=== PATIENT | male | born 1940 | race Two or more races ===

== ENCOUNTER 2017-08-22 00:25 | Inpatient (IN) | payer MEDICAID, MEDICARE ==
[~2017-08-22] VITALS: Ht 167.6 cm; Wt 68.0 kg
--- NOTE | 2017-08-22 01:10 | NUR ---
TO BED PT BB AMBULANCE FROM [facility] C/O "POSSIBLE PNA, FEVER X1 DAY." VSS. NAD NOTED. SKIN WARM AND DRY. BREATHING EVEN AND UNLABORED. PLACED ON TELE AND VS MONITORING. COMFORT MEASURES RENDERED.
--- NOTE | 2017-08-22 01:45 | NUR ---
started a saline lock on the lac g18, blood drawn and sent to lab.
[2017-08-22 01:53] LABS: HEMATOCRIT 30 % (39-51); HEMOGLOBIN 10.1 g/dL (13.5-17.5); MEAN CORPUSCULAR HEMOGLOBIN 27 PG (26.0-33.0); MEAN CORPUSCULAR HGB CONC 34 g/dl (31.0-36.0); MEAN CORPUSCULAR VOLUME 79 fL (80-96); PLATELET COUNT (AUTO) 222 /CMM (150-450); RDW COEFFICIENT OF VARIATION 15.1 (11.5-15.0); RED BLOOD CELL COUNT(AUTO) 3.78 MIL/uL (4.5-6.0); WHITE BLOOD COUNT (AUTO) 14.8 K/uL (4.3-11.0)
[2017-08-22 02:03] LABS: EOSINOPHILS % (MANUAL) 1 % (0-4); LYMPHOCYTES % (MANUAL) 11 % (16-48); MONOCYTES % (MANUAL) 7 % (0-11.0); NEUTROPHILS % (MANUAL) 81 (42-76)
[2017-08-22 02:06] LABS: CALCIUM, SERUM 9.3 mg/dL (8.5-10.1); CARBON DIOXIDE 26 mmol/L (21-32); CHLORIDE 110 mmol/L (98-107); CREATININE 1.9 mg/dL (0.6-1.3); GLUCOSE 136 mg/dL (74-106); POTASSIUM 4.1 mmol/L (3.5-5.1); SODIUM SERUM 145 mmol/L (136-145); UREA NITROGEN, BLOOD 58 mg/dL (7-18)
[2017-08-22 02:17] LABS: ALANINE AMINOTRANSFERASE 13 U/L (12-78); ALBUMIN 2.6 g/dL (3.4-5.0); ALKALINE PHOSPHATASE 84 U/L (46-116); ASPARTATE AMINOTRANSFERASE 16 U/L (15-37); B-TYPE NATRIURETIC PEPTIDE 3118 PG/ML (0-125); BILIRUBIN,DIRECT 0.2 mg/dL (0.0-0.2); BILIRUBIN,TOTAL 0.6 mg/dL (0.2-1.0); TOTAL PROTEIN, SERUM 7.9 g/dL (6.4-8.2)
--- NOTE | 2017-08-22 02:24 | NUR ---
XR AT BEDSIDE.
--- NOTE | 2017-08-22 02:50 | NUR ---
started with 500cc ns bolus on the lac g18 for low bp at 92/57, endtime is 0320.
[2017-08-22] MEDS ORDERED: IV NS 0.9% 500 ML BAG IV ONE (03:00)
[2017-08-22 03:28] LABS: APPEARANCE,URINE CLOUDY (CLEAR); BILIRUBIN,URINE 1+ (NEGATIVE); BLOOD, URINE 2+ Ery/uL (NEGATIVE); COLOR,URINE YELLOW (YELLOW); KETONES,URINE TRACE (NEGATIVE); LEUKOCYTE ESTERASE ,URINE 3+ (NEGATIVE); NITRITE, URINE NEGATIVE (NEGATIVE); PROTEIN,URINE 3+ mg/dl (NEGATIVE); UGLUCOSE NEGATIVE (NEGATIVE)
[2017-08-22 03:32] LABS: BACTERIA,URINE Few /HPF (None Seen); WBC,URINE 21-50 /HPF (0-3)
[2017-08-22 03:33] LABS: SQUAMOUS EPITHELIAL CELL,UR Rare /HPF (None Seen)
[2017-08-22] MEDS ORDERED: IV NS 0.9% 1,000 ML IV PRN ×2 (03:46→11:35)
--- NOTE | 2017-08-22 03:53 | NUR ---
tele 115-2
[2017-08-22] MEDS ORDERED: CIPROFLOXACIN IV RTU 400 MG in PREMIX 1 EA IV SCH (04:00)
[2017-08-22] MEDS ORDERED: MAG HYDROX/AL HYDROX/SIMETH 30 ML UDC PO PRN (04:00)
[2017-08-22] MEDS ORDERED: MAGNESIUM HYDROXIDE 30 ML UDC PO PRN (04:00)
[2017-08-22] MEDS ORDERED: ONDANSETRON HCL/PF 4 MG/2 ML VIAL IVP PRN (04:00)
[2017-08-22] MEDS ORDERED: ACETAMINOPHEN 325 MG TABLET PO PRN (04:00)
[2017-08-22] MEDS ORDERED: ZOLPIDEM TARTRATE 5 MG TABLET PO PRN (04:00)
[2017-08-22] MEDS ORDERED: Z GUARD REMEDY 2 OZ OINT TP PRN (04:00)
--- NOTE | 2017-08-22 04:00 | NUR ---
Report given to Krzysztof SOLOMON for admission and mayco.
--- NOTE | 2017-08-22 04:26 | NUR ---
RN NOTES: RECEIVED ER REPORT FROM NOVEMBER RN, STATED SHE WASNT ABLE TO PUT MED RECON SHE IS TIRED FROM EVERYTHING GOING ON IN ER, NOTIFIED INGOT PASSER BYRON.
--- NOTE | 2017-08-22 04:30 | NUR ---
ADMISSION NOTES: RECEIVED REPORT FROM NOVEMBER RN, PT FROM [facility] OF FEVER AND POSSIBLE PNA, BROUGHT TO THE UNIT VIA STRETCHER, PT IS ALERT TO SELF ONLY, CONFUSED, DISORIENTED, ANGRY UNCOOPERATIVE. ON RA RESPIRATION EVEN AND UNLABORED. LEFT AC IV ACCESS PATENT AND FLUSHING WELL ON HL. VS TAKEN AND RECORDED, ORIENTED PT TO UNIT POLICY AND HOURLY ROUNDING. PLACED ON TELE MONITORING, AFLUTTER WITH PAC PVC AND COUPLET HR 95, INITIALLY PER AUTOMATION ANALYST PT IS AFIB WITH PVC PAC AND COUPLET HR 100. SKIN ASSESSMENT PERFORMED, INVENTORY OF BELONGINGS COMPLETED BY DATA COMMUNICATIONS SOFTWARE CONSULTANT, PT HAS ONLY 1 BLUE SHIRT. BED BATH PROVIDED TO THE PT. BLE OFFLOADED. SAFETY PRECAUTIONS FOR FALL INITIATED CALL LIGHT IN REACH, WILL CONTINUE TO MONITOR
--- NOTE | 2017-08-22 04:33 | NUR ---
Transferred patient to tele bed 115-2 via als protocol, no incident noted.
[2017-08-22 04:46] VITALS: BP 91/64
[2017-08-22] MEDS ORDERED: LEVOFLOXACIN 500 MG /D5W 100ML 100 ML IV ONE (04:58)
[2017-08-22] MEDS ORDERED: LEVOFLOXACIN 500 MG /D5W 100ML 500 MG in PREMIX 1 EA IV ONE (05:00)
[2017-08-22] MEDS ORDERED: CIPROFLOXACIN IV RTU 200 ML IV ONE (05:02)
[2017-08-22] MEDS ORDERED: BISA10SU61 RC (05:06)
[2017-08-22] MEDS ORDERED: LORA-259 PO (05:06)
[2017-08-22] MEDS ORDERED: ASPI-1169 PO (05:06)
[2017-08-22] MEDS ORDERED: TRAM50TA2 PO (05:06)
[2017-08-22] MEDS ORDERED: METO-295 PO (05:06)
[2017-08-22] MEDS ORDERED: NA P133E RC (05:06)
[2017-08-22 05:14] VITALS: BP 91/64
--- NOTE | 2017-08-22 06:50 | NUR ---
MOTORCYCLE RACER CLOSING NOTES: PT IN BED, AWAKE, REMAINS ALERT ORIENTED TO SELF ONLY, YELLING AND STATING TO LEAVE HIM ALONE, RESPIRATION EVEN AND UNLABORED, DENIES ANY PAIN OR DISCOMFORT, REMAINS ON A FLUTTER WITH PAC AND PVC HR 101. LEFT AC G 18 PATENT AND FLUSHING WELL, ON HL. VS REMAINS STABLE, NEEDS ATTENDED. BLE OFFLOADED. SAFETY PRECAUTIONS FOR FALL REMAIN ENGAGED CALL LIGHT IN REACH, WILL ENDORSE TO DAY RN FOR SUZAN. Addendum: 08/22/17 at 0652 by AWILDA KERN RN CORRECTION OF ENTRY: LEFT AC G 18 PATENT AND FLUSHING WELL, CURRENTLY INFUSING WITH CIPRO RTU AT 200ML/HR.
--- NOTE | 2017-08-22 07:45 | NUR ---
LUGGAGE ATTENDANT NOTES: RECEIVED PATIENT RESTING IN BED, SLEEPING, AROUSES TO VERBAL AND TACTILE STIMULI, RESPIRATION EVEN AND UNLABORED, NO S/S OF PAIN OR DISCOMFORT NOTED ON TELE, PER MONITOR READING A FLUTTER WITH PAC AND PVC HR 95. IV TO LEFT AC G 18 PATENT AND FLUSHING WELL, ON INFUSING IV FLUIDS. SAFETY PRECAUTIONS RENDERED, CALL LIGHT IN REACH, WILL CONTINUE TO MONITOR.
[2017-08-22 08:00] VITALS: BP 96/69
[2017-08-22] MEDS: HYDROCODONE/APAP 5/325MG 1 EACH TABLET PO PRN ×2 (11:18→17:03)
--- NOTE | 2017-08-22 11:25 | NUR ---
TELE/RN NOTES PATIENT COMPLAINING OF EXCRUCIATING GENERALIZED PAIN. ADMINISTERED NORCO 5-325MG 1 TAB BY MOUTH. WILL MONITOR PATIENT FOR EFFECTIVENESS OF PAIN MEDICATION.
[2017-08-22 12:00] VITALS: BP 108/79
--- NOTE | 2017-08-22 13:00 | NUR ---
TELE/RN NOTES PATIENT SEEN BY PHYSICAL THERAPY, UNABLE TO AMBULATE D/T IMMOBILITY, BEDBOUND. PATIENT CONTRACTED WITH MUSCLE STIFFNESS.
--- NOTE | 2017-08-22 16:05 | NUR ---
TELE/RN NOTES PATIENT APPEARS TO BE ASPIRATING WITH FLUID/FOOD INTAKE. ORDERS OBTAINED FOR SWALLOW EVAL.
--- NOTE | 2017-08-22 18:45 | NUR ---
MS/RN NOTES PATIENT RESTING IN BED COMFORTABLY, NO S/S OF DISTRESS, DISCOMFORT NOTED. ALL DUE MEDICATIONS GIVEN, ALL NEEDS MET AND ATTENDED, PATIENT KEPT CLEAN AND DRY, DIAPER CHANGED X3, REPOSITIONED EVERY 2 HOURS. GENTLE IV FLUIDS INFUSING TO LEFT AC 18G NS AT 100CC/HR INTACT AND PATENT. SAFETY MEASURES RENDERED, VITAL SIGNS WITHIN NORMAL LIMITS. WILL ENDORSE CARE TO PNEUMATIC SYSTEMS OPERATOR NURSE FOR SUZAN
--- NOTE | 2017-08-22 20:00 | NUR ---
FRAME CARVER SPINDLE NOTES PATIENT REFUSED 20:00 VITAL SIGNS. OFFERED 3X. EXPLAINED RISKS AND BENEFITS OF TAKING VITAL SIGNS AND STILL REFUSED. WILL CONTINUE TO MONITOR PATIENT.
--- NOTE | 2017-08-22 23:46 | NUR ---
RN NOTES GIVEN REPORT AND PATIENT TO NEHA OLIVAS
[2017-08-23] VITALS (9 sets, daily range): BP systolic 90–112; BP diastolic 51–68
--- NOTE | 2017-08-23 | NUR ---
CLINICAL TRIALS SPECIALIST NOTES RECEIVED PATIENT FROM NEHA SCHERER IN STABLE CONDITION. NO PAIN OR DISCOMFORT NOTED AT THIS TIME. RESPIRATIONS EVEN AND UNLABORED.NO SOB NOTED. IV ACCESS PATENT AND INTACT, NO REDNESS OR INFILTRATION NOTED. BED IN LOW AND LOCKED POSITION, SIDE RAILS X2. CALL LIGHT WITHIN EASY REACH. WILL CONTINUE TO MONITOR.
[2017-08-23] MEDS ORDERED: LEVOFLOXACIN 250 MG /D5W 50 ML 250 MG in PREMIX 1 EA IV SCH (05:00)
--- NOTE | 2017-08-23 07:00 | NUR ---
RN NOTES PATIENT REFUSED BLOOD DRAW AND DIAPER CHANGE
--- NOTE | 2017-08-23 07:30 | NUR ---
RN CLOSING NOTES PATIENT IS SLEEPING IN BED, EASY TO AROUSE, NO PAIN OR DISCOMFORT NOTED AT THIS TIME. RESPIRATIONS EVEN AND UNLABORED.NO SOB NOTED. IV ACCESS PATENT AND INTACT, NO REDNESS OR INFILTRATION NOTED. ALL NEEDS ARE MET AND MEDICATIONS GIVEN PER MD ORDER. BED IN LOW AND LOCKED POSITION, SIDE RAILS X2. CALL LIGHT WITHIN EASY REACH. WILL ENDORSE TO RN DAY SHIFT FOR SUZAN.
--- NOTE | 2017-08-23 07:50 | NUR ---
TELE/RN OPENING NOTE PATIENT IN BED IN STABLE CONDITION. A/O X 1-2. NO SIGNS OF ACUTE DISTRESS. NO COMPLAIN OF PAIN OR DISCOMFORT. ON TELE MONITOR WITH A-FLUTTER WITH PVC. ALL NEEDS ATTENDED TO. CALL LIGHT WITHIN REACH. WILL CONTINUE TO MONITOR TO ENSURE SAFETY.
[2017-08-23] MEDS: ASPIRIN 81 MG TAB.CHEW PO SCH (09:00)
--- NOTE | 2017-08-23 10:06 | NUR ---
TELE/RN REFUSAL OF MEDS/BREAKFAST PATIENT REFUSED MORNING MEDS AND BREAKFAST. OFFERED X 3 WITH RISK AND BENEFITS EXPLAINED STILL CONTINUE TO REFUSE. PER PATIENT VERBALIZED, "LEAVE ME ALONE, GET OUT OF MY FUCKING ROOM." CALL LIGHT WITHIN REACH. WILL CONTINUE TO MONITOR FOR FURTHER CHANGES.
--- NOTE | 2017-08-23 10:44 | NUR ---
WOUND CARE CONSULT: PT VERY AGITATED AND REFUSING SKIN ASSESSMENT. ALL SKIN PROTECTION MEASURES IN PLACE AND DISCUSSED WITH NURSING STAFF. WILL SEE PT PT CONDITION PERMITS. CURRENT ESTELLA SCORE IS 13.
[2017-08-23] MEDS: IV NS 0.9% 1,000 ML IV SCH (14:15)
[2017-08-23] MEDS ORDERED: LORAZEPAM INJ 2 MG/ML VIAL IV PRN (14:30)
[2017-08-23] MEDS ORDERED: TRAMADOL HCL 50 MG TABLET PO PRN (14:30)
[2017-08-23] MEDS: CEFTRIAXONE 1 G in IV D5W 50 ML IV SCH (15:22)
--- NOTE | 2017-08-23 18:09 | NUR ---
MS/RN CLOSING NOTE PATIENT IN BED IN STABLE CONDITION. A/O X 1-2, NOTED WITH EPISODES OF CONFUSION AND FORGETFULNESS. ALL NEEDS ATTENDED TO. CALL LIGHT WITHIN REACH. WILL ENDORSE TO NEXT SHIFT FOR CONTINUITY OF CARE.
--- NOTE | 2017-08-23 19:15 | NUR ---
TELE/RN NOTES RECEIVED PT. LYING IN BED. AWAKE, ALERT AND ORIENTED X1. BREATHING EVEN AND UNLABORED ON ROOM AIR. NO SOB, RESPIRATORY DISTRESS OR COMPLAINTS OF PAIN NOTED AT THIS TIME. PT. WITH LEFT AC 18 GAUGE PERIPHERAL IV PRESENT, PATENT AND INTACT ADMINISTERING TO PT. NS @ 100 ML/HR. BED LOCKED AND IN LOWEST POSITION, SIDE RAILS UP X3, BED ALARM ON, CALL LIGHT WITHIN REACH, WILL CONTINUE TO MONITOR.
[2017-08-24] VITALS: BP 95/52
[2017-08-24] MEDS: IV NS 0.9% 1,000 ML IV SCH ×2 (00:30→13:41)
[2017-08-24 04:00] VITALS: BP 94/67
--- NOTE | 2017-08-24 06:38 | NUR ---
TELE/RN NOTES PT. IS LYING IN BED RESTING. BREATHING EVEN AND UNLABORED ON ROOM AIR. NO SOB, RESPIRATORY DISTRESS OR COMPLAINTS OF PAIN NOTED AT THIS TIME. PT. WITH LEFT AC 18 GAUGE PERIPHERAL IV PRESENT, PATENT AND INTACT ADMINISTERING TO PT. NS @ 100 ML/HR. ALL PT. NEEDS MET. PT. HAS BEEN REFUSING TO BE CLEANED OR TOUCHED STATING" LEAVE ME ALONE I DONT WANT TO BE TOUCHED, GO AWAY". BED LOCKED AND IN LOWEST POSITION, SIDE RAILS UP X3, BED ALARM ON, CALL LIGHT WITHIN REACH, WILL ENDORSE TO DAYSHIFT NURSE FOR CONTINUITY OF CARE.
[2017-08-24 08:00] VITALS: BP 95/67
[2017-08-24] MEDS: ASPIRIN 81 MG TAB.CHEW PO SCH (09:08)
[2017-08-24] MEDS: LORAZEPAM 1 MG TABLET PO PRN (09:42)
[2017-08-24] MEDS: HYDROCODONE/APAP 5/325MG 1 EACH TABLET PO PRN ×2 (10:56→17:18)
[2017-08-24 12:00] VITALS: BP_SYST 95; BP_DIAS 57; BP_DIAS 58
[2017-08-24 16:00] VITALS: BP_SYST 99; BP_DIAS 50; BP_DIAS 59
[2017-08-24] MEDS: CEFTRIAXONE 1 G in IV D5W 50 ML IV SCH (17:13)
--- NOTE | 2017-08-24 18:30 | NUR ---
YELLING OUT CONTINUALLY REASSURED ARCENIO. RN IN TO RM VERY FREQ.IV INFUSING CONT.MED X1 WITH ATIVAN AND X2 WITH NORCO.
--- NOTE | 2017-08-24 19:49 | NUR ---
RN NOTE LAB REPORTED THAT PT REFUSED HIS BLOOD DRAWS TODAY SEVERAL TIMES, A RESULT LABS WERE CANCELED, CRISELDA MEDLEY WAS NOTIFIED.
[2017-08-24 20:00] VITALS: BP 101/62
--- NOTE | 2017-08-24 20:00 | NUR ---
RN INITIAL NOTES PT. IS LYING IN BED RESTING. BREATHING EVEN AND UNLABORED ON ROOM AIR. NO SOB, RESPIRATORY DISTRESS OR COMPLAINTS OF PAIN NOTED AT THIS TIME. PT. WITH LEFT AC 18 GAUGE PERIPHERAL IV PRESENT, PATENT AND INTACT . NS @ 50 ML/HR. BED LOCKED AND IN LOWEST POSITION, SIDE RAILS UP X3, BED ALARM ON, CALL LIGHT WITHIN REACH, WILL CONTINUE TO MONITOR.
[2017-08-25] MEDS: HYDROCODONE/APAP 5/325MG 1 EACH TABLET PO PRN (00:55)
[2017-08-25] MEDS: LORAZEPAM 1 MG TABLET PO PRN ×2 (00:56→12:07)
[2017-08-25 04:00] VITALS: BP_SYST 101; BP_SYST 123; BP_DIAS 62; BP_DIAS 76
[2017-08-25 05:00] VITALS: BP 101/62
[2017-08-25] MEDS: IV NS 0.9% 1,000 ML IV SCH (05:58)
--- NOTE | 2017-08-25 06:00 | NUR ---
RN CLOSING NOTE NO CHANGES IN PT CONDITION OVER SHIFT, PATIENT IN BED IN STABLE CONDITION. A/O X 1-2, NOTED WITH EPISODES OF CONFUSION AND FORGETFULNESS AND SHOUTING. ALL NEEDS ATTENDED TO. CALL LIGHT WITHIN REACH. BED IN LOW LOCKED POSITION . WILL ENDORSE TO NEXT SHIFT FOR CONTINUITY OF CARE.
[2017-08-25 07:11] LABS: BASOPHILS % (AUTO) 0.1 % (0.0-2.0); EOSINOPHILS # (AUTO) 0.1 /CMM (0.0-0.7); EOSINOPHILS % (AUTO) 1.9 % (0.0-6.0); HEMATOCRIT 25 % (39-51); HEMOGLOBIN 8.6 g/dL (13.5-17.5); LYMPHOCYTES % (AUTO) 25.5 % (20.0-44.0); MEAN CORPUSCULAR HEMOGLOBIN 27 PG (26.0-33.0); MEAN CORPUSCULAR HGB CONC 34 g/dl (31.0-36.0); MEAN CORPUSCULAR VOLUME 80 fL (80-96); MONOCYTES # (AUTO) 0.8 /CMM (0.1-1.30); MONOCYTES % (AUTO) 10.6 % (2.0-12.0); NEUTROPHILS # (AUTO) 4.8 /CMM (1.8-8.9); NEUTROPHILS % (AUTO) 61.9 % (43.0-81.0); PLATELET COUNT (AUTO) 278 /CMM (150-450); RDW COEFFICIENT OF VARIATION 15.7 (11.5-15.0); RED BLOOD CELL COUNT(AUTO) 3.18 MIL/uL (4.5-6.0); WHITE BLOOD COUNT (AUTO) 7.8 K/uL (4.3-11.0)
[2017-08-25 07:27] LABS: ALANINE AMINOTRANSFERASE 10 U/L (12-78); ALBUMIN 2.3 g/dL (3.4-5.0); ALKALINE PHOSPHATASE 68 U/L (46-116); ASPARTATE AMINOTRANSFERASE 16 U/L (15-37); BILIRUBIN,TOTAL 0.3 mg/dL (0.2-1.0); CALCIUM, SERUM 8.6 mg/dL (8.5-10.1); CARBON DIOXIDE 24 mmol/L (21-32); CHLORIDE 111 mmol/L (98-107); GLUCOSE 90 mg/dL (74-106); MAGNESIUM 1.9 mg/dL (1.8-2.4); PHOSPHORUS 2.9 mg/dL (2.5-4.9); POTASSIUM 3.8 mmol/L (3.5-5.1); SODIUM SERUM 143 mmol/L (136-145); TOTAL PROTEIN, SERUM 6.8 g/dL (6.4-8.2); UREA NITROGEN, BLOOD 25 mg/dL (7-18)
[2017-08-25 08:00] VITALS: BP 108/73
[2017-08-25] MEDS: ASPIRIN 81 MG TAB.CHEW PO SCH (09:11)
--- NOTE | 2017-08-25 15:01 | NUR ---
DISCHARGE TRADE SHOW COORDINATOR NOTE, PATIENT STABLE AO X1-2, VS: B/P 120/74, O2 SAT 96% RA, T 98.3 RR19 HR 115. HR INCREASED DUE TO WOUND CARE AND BED BATH. RE-CHECKED HR, IT WAS 110. ENDORSED TO TRANSPORT EMTDARRYL. NOTIFIED TRANSPORT PATIENT WAS SCHEDULED FOR [facility] AT 2200 DUE TO PATIENT CONFUSION AND ANXIETY AND PATIENT TO CONTINUE TX. PATIENT TRANSPORTE TO [facility]: [phone] REPORT TO JOSE EDUARDO.
[2017-08-25] MEDS ORDERED: QUETIAPINE FUMARATE 25 MG TABLET PO SCH (22:00)
== END 2017-08-25 14:50 | DRG 463 ==
LOC: ER 00:27 → TELE1 04:25 → MEDSG1 08-24 12:14
PROVIDERS: ADMIT Internal Medicine; ATTEND Internal Medicine
DX: N39.0 Urinary tract infection, site not specified (principal); N17.0 Acute kidney failure with tubular necrosis; G93.41 Metabolic encephalopathy; E44.0 Moderate protein-calorie malnutrition; B96.4 Proteus (mirabilis) (morganii) as the cause of diseases classified elsewhere; I48.91 Unspecified atrial fibrillation; F03.90 Unspecified dementia, unspecified severity, without behavioral disturbance, psychotic disturbance, mood disturbance, and anxiety; E86.0 Dehydration; I12.9 Hypertensive chronic kidney disease with stage 1 through stage 4 chronic kidney disease, or unspecified chronic kidney disease; D63.8 Anemia in other chronic diseases classified elsewhere; K21.9 Gastro-esophageal reflux disease without esophagitis; N18.9 Chronic kidney disease, unspecified; Z68.24 Body mass index [BMI] 24.0-24.9, adult; L98.8 Other specified disorders of the skin and subcutaneous tissue; L90.5 Scar conditions and fibrosis of skin; F29 Unspecified psychosis not due to a substance or known physiological condition
CPT/HCPCS: 36415; 71045-TC; 80048-TC; 80053-TC; 80076-TC; 81000-TC; 83605-TC; 83735-TC; 83880; 84100-TC; 84484-TC; 85025-TC; 87040-TC; 87081-TC; 87086-TC; 87186-TC; 87400; 92611-TC; A4216; A4606; A6402; J0696; J0744; J1956; J2060; J7030; J7040; J7060; Z7610

== ENCOUNTER 2019-07-21 12:12 | Inpatient (IN) | payer MEDICARE, MEDICAID ==
[~2019-07-21] VITALS: Ht 167.6 cm; Wt 80.4 kg
[2019-07-21] VITALS (14 sets, daily range): BP systolic 92–147; BP diastolic 67–109
[~2019-07-21 12:12] MED LIST: ASPI-1169 PO; BISA10SU61 RC; LORA-259 PO; METO-295 PO; NA P133E RC; TRAM50TA2 PO
[2019-07-21] MEDS ORDERED: FUROSEMIDE 20 MG/2 ML VIAL ONE (12:21)
[2019-07-21] MEDS ORDERED: NALOXONE PREFILLED SYRINGE 2 MG/2 ML SYRINGE ONE (12:25)
--- NOTE | 2019-07-21 12:25 | NUR ---
ICU 250
[2019-07-21] MEDS ORDERED: methylPREDNISolone SOD SUCC 125 MG/2ML VIAL IV ONE (12:30)
[2019-07-21] MEDS ORDERED: IPRATROPIUM NEB FS 0.5 MG/2.5 ML AMPUL.NEB NEB ONE (12:30)
[2019-07-21] MEDS ORDERED: ALBUTEROL FS 2.5 MG/3 ML VIAL.NEB NEB ONE (12:30)
[2019-07-21] MEDS ORDERED: NALOXONE HCL 0.4 MG/ML AMPUL IV ONE (12:30)
[2019-07-21] MEDS ORDERED: FUROSEMIDE 40 MG/4 ML VIAL IV ONE (12:30)
--- NOTE | 2019-07-21 12:30 | NUR ---
RT here to set up BiPap as ordered. Medicated
--- NOTE | 2019-07-21 12:30 | NUR ---
RT here suctioned copius amouts of reddish mucus
[2019-07-21] MEDS ORDERED: methylPREDNISolone SOD SUCC 125 MG/2ML VIAL ONE (12:37)
[2019-07-21 12:41] LABS: BASOPHILS % (AUTO) 0.1 % (0.0-2.0); HEMATOCRIT 37 % (39-51); HEMOGLOBIN 12.1 g/dL (13.5-17.5); LYMPHOCYTES # (AUTO) 0.9 /CMM (0.8-4.8); LYMPHOCYTES % (AUTO) 8.5 % (20.0-44.0); MEAN CORPUSCULAR HGB CONC 33 g/dl (31.0-36.0); MEAN CORPUSCULAR VOLUME 73 fL (80-96); MONOCYTES # (AUTO) 1.2 /CMM (0.1-1.30); MONOCYTES % (AUTO) 11.3 % (2.0-12.0); NEUTROPHILS # (AUTO) 8.4 /CMM (1.8-8.9); NEUTROPHILS % (AUTO) 80.1 % (43.0-81.0); PLATELET COUNT (AUTO) 163 /CMM (150-450); RED BLOOD CELL COUNT(AUTO) 5.09 MIL/uL (4.5-6.0); WHITE BLOOD COUNT (AUTO) 10.5 K/uL (4.3-11.0)
--- NOTE | 2019-07-21 12:43 | NUR ---
RT NOTE PT PLACED ON BIPAP PER MD JOIE BROOKS. SETTINGS FOLLOW 30/11 BUR 12 100%. ALARMS SET PER PROTOCOL AND AUDIBLE. BIPAP PLUGGED IN TO RED OUTLET. Addendum: 07/21/19 at 1244 by JANI DUFFY RT Amended: Links added.
[2019-07-21 12:44] LABS: CALCIUM, SERUM 9.8 mg/dL (8.5-10.1); CREATININE 0.6 mg/dL (0.6-1.3); POTASSIUM 4.8 mmol/L (3.5-5.1)
[2019-07-21] MEDS ORDERED: IPRATROPIUM NEB FS 0.5 MG/2.5 ML AMPUL.NEB ONE (12:46)
[2019-07-21] MEDS ORDERED: ALBUTEROL FS 2.5 MG/3 ML VIAL.NEB ONE (12:46)
[2019-07-21 13:01] LABS: ALBUMIN 3.5 g/dL (3.4-5.0); BILIRUBIN,DIRECT 0.3 mg/dL (0.0-0.2); BILIRUBIN,TOTAL 0.8 mg/dL (0.2-1.0); TOTAL PROTEIN, SERUM 8.1 g/dL (6.4-8.2)
[2019-07-21 13:30] LABS: ABG BASE EXCESS -0.1 mmol/L; ABG OXYGEN SATURATION 93.3 % (92.0-98.5); ABG PH 7.292 (7.350-7.450); ABG PO2 79.6 mmHg (75.0-100.0); AaDO2 284.4 mmHg; COHb 0.9 % (0.5-1.5); MetHb 0.4 % (0.0-1.5); O2Hb 92.1 % (94.0-97.0); SITE, ABG Right Radial; VENT MODE, BG ST 15/5 60%
[2019-07-21] MEDS ORDERED: ENOXAPARIN SODIUM 60 MG/0.6 ML DISP.SYRIN SQ ONE ×2 (13:30→13:55)
--- NOTE | 2019-07-21 14:00 | NUR ---
Respirations even/unlabored. Tolerating Bipap. Await ICU admit
[2019-07-21 14:04] LABS: LYMPHOCYTES % (MANUAL) 7 % (16-48); MONOCYTES % (MANUAL) 7 % (0-11.0); NEUTROPHILS % (MANUAL) 86 (42-76)
--- NOTE | 2019-07-21 14:28 | NUR ---
REPORT GIVEN TO VENUS SOLOMON, CONTINUE PLAN OF CARE.
--- NOTE | 2019-07-21 14:30 | NUR ---
SCENE AND LIGHTING DESIGN LECTURER NOTES RECEIVED PATIENT AOX1 LETHARGIC ABLE TO FOLLOW COMMANDS, ON BIPAP 30/11 RATE 12 FIO2 OF 60% SPO2 OF 90-95% , AFIB 85 ON BEDSIDE MONITOR , FC DRAINING VIA GRAVITY WITH JASON COLORED URINE , SKIN ASSESSMENT DONE NOTED WITH BILATERAL BUTTOCKS SCAR , IV OF L WRIST # 18 PATENT AND INTACT SL , ALL NEEDS ATTENDED , BED ON LOW AND LOCKED POSITION , SIDE RAILS X2, CALL LIGHT WITHIN REACH , HOB @ 45 , AWAITING FOR ADMISSION ORDERS
[2019-07-21] MEDS ORDERED: BENZ2AMP3 PO (14:47)
[2019-07-21] MEDS ORDERED: HYDR-4384 PO (14:47)
[2019-07-21] MEDS ORDERED: GABA-532 PO (14:47)
[2019-07-21] MEDS ORDERED: AMIN887L PO (14:47)
[2019-07-21] MEDS ORDERED: ARIP5TAB10 PO (14:47)
[2019-07-21] MEDS ORDERED: ZOLP5TAB2 PO (14:47)
[2019-07-21] MEDS ORDERED: ASPI-605 PO (14:47)
[2019-07-21] MEDS ORDERED: DIVA500T2 PO (14:47)
[2019-07-21] MEDS ORDERED: LATA2.5D2 OP (14:47)
[2019-07-21] MEDS ORDERED: BACL10TA PO (14:47)
[2019-07-21] MEDS ORDERED: SENN-175 PO (14:47)
[2019-07-21] MEDS ORDERED: MAGN400O6 PO (14:47)
[2019-07-21] MEDS ORDERED: MULT-439 PO (14:47)
[2019-07-21] MEDS ORDERED: ACET650T10 PO (14:47)
[2019-07-21] MEDS ORDERED: BISACODYL SUPP (10 MG) 10 MG/SUPP.RECT SUPP.RECT RC PRN (15:00)
[2019-07-21] MEDS ORDERED: MAG HYDROX/AL HYDROX/SIMETH 30 ML UDC PO PRN (15:00)
[2019-07-21] MEDS ORDERED: ACETAMINOPHEN 325 MG TABLET PO PRN (15:00)
[2019-07-21] MEDS ORDERED: ONDANSETRON HCL/PF 4 MG/2 ML VIAL IVP PRN (15:00)
[2019-07-21] MEDS ORDERED: TRAMADOL HCL 50 MG TABLET PO PRN (15:00)
[2019-07-21] MEDS ORDERED: MAGNESIUM HYDROXIDE 30 ML UDC PO PRN (15:00)
[2019-07-21] MEDS ORDERED: Z GUARD REMEDY 2 OZ OINT TP PRN (15:00)
[2019-07-21] MEDS ORDERED: FEE PK DOSING 1 MIN EA MC ONE (15:28)
[2019-07-21] MEDS: ALBUTEROL FS 2.5 MG/0.5 ML VIAL.NEB NEB SCH ×2 (15:55→19:44)
[2019-07-21] MEDS: IPRATROPIUM NEB FS 0.5 MG/2.5 ML AMPUL.NEB NEB SCH ×2 (15:55→19:44)
[2019-07-21] MEDS ORDERED: PIPERACILLIN /TAZOBACTAM 3.375 G in IV D5W 50 ML IV ONE (16:00)
[2019-07-21] MEDS: GABAPENTIN 100 MG CAPSULE PO SCH (16:20)
[2019-07-21] MEDS: BACLOFEN (10 MG) 10 MG TABLET PO SCH (16:20)
[2019-07-21] MEDS: PROSOURCE / PROSTAT (PYXIS) 30 ML UDC PO SCH (16:20)
--- NOTE | 2019-07-21 16:45 | NUR ---
BLOCK SEALER NOTES NOTIFIED DR HARGROVE REGARDING PT STATUS , ON BIPAP 30/11 RATE 12 FIO2 OF 60% , SPO2 OF 87-90% , PT LETHARGIC ABLE TO FOLLOW COMMANDS , ASKED IF HE WANTS TO DO A REPEAT ABG , PER MD DO ABG @ 1700 , ORDERS CARRIED OUT
[2019-07-21] MEDS: methylPREDNISolone SOD SUCC 40 MG/ML VIAL IV SCH (17:00)
[2019-07-21] MEDS ORDERED: FUROSEMIDE 40 MG/4 ML VIAL IV SCH (17:00)
[2019-07-21 17:40] LABS: ABG BASE EXCESS 2.3 mmol/L; ABG OXYGEN SATURATION 94.7 % (92.0-98.5); ABG PCO2 56.5 mmHg (35.0-45.0); ABG PH 7.333 (7.350-7.450); AaDO2 285.7 mmHg; COHb 0.7 % (0.5-1.5); MetHb 0.6 % (0.0-1.5); O2Hb 93.5 % (94.0-97.0); SITE, ABG Right Radial; VENT MODE, BG ST 15/5 60%
--- NOTE | 2019-07-21 18:00 | NUR ---
SAWMILL OR TIMBER YARD WORKER NOTES NOTIFIED DR HARGROVE REGARDING ABG RESULT , PER MD INCREASE IPAP TO 18 , RT NOTIFIED
[2019-07-21] MEDS: VANCOMYCIN 1 GM in IV D5W 250ml IV SCH (18:02)
[2019-07-21 18:45] LABS: APPEARANCE,URINE CLEAR (CLEAR); BILIRUBIN,URINE NEGATIVE (NEGATIVE); BLOOD, URINE LARGE Ery/uL (NEGATIVE); COLOR,URINE YELLOW (YELLOW); KETONES,URINE NEGATIVE (NEGATIVE); LEUKOCYTE ESTERASE ,URINE NEGATIVE (NEGATIVE); NITRITE, URINE NEGATIVE (NEGATIVE); PH,URINE 5.5 (5.0-8.0); PROTEIN,URINE NEGATIVE (NEGATIVE); UGLUCOSE NEGATIVE (NEGATIVE); UROBILINOGEN,URINE 0.2 EU/dL (0.2)
--- NOTE | 2019-07-21 19:15 | NUR ---
RN OPENING NOTES RECEIVED PATIENT IN BED AWAKE, A/OX1, LETHARGIC, HOWEVER ABLE TO FOLLOW COMMANDS. ON BIPAP (FIO2 60%), TOLERATING WELL, SATURATING 96% AT THE MOMENT. DENIES ANY PAIN. NO SOB OR RESPIRATORY DISTRESS NOTED. ON BEDSIDE MONITOR AFIB WITH HR 90'S. MATA CATH DRAINING VIA GRAVITY WITH YELLOW COLORED URINE NOTED. IV SITES LEFT WRIST 18G AND RIGHT FA 20G, BOTH FLUSHING AND PATENT, S/L. SAFETY MEASURES IN PLACE; BED ON LOW AND LOCKED POSITION, SIDE RAILS X2, CALL LIGHT WITHIN REACH, HOB ELEVATED. WILL CONT TO MONITOR PT CLOSELY.
[2019-07-21 19:39] LABS: RBC,URINE 81-100 /HPF (0-2)
[2019-07-21 19:40] LABS: BACTERIA,URINE 1+ /HPF (None Seen); SQUAMOUS EPITHELIAL CELL,UR Few /HPF (None Seen); WBC,URINE 0-2 /HPF (0-3)
[2019-07-21] MEDS: ZOLPIDEM TARTRATE 5 MG TABLET PO SCH (21:41)
[2019-07-21] MEDS: SENNOSIDES 8.6 MG TABLET PO SCH (22:00)
[2019-07-21] MEDS: LATANOPROST EYE DROP 0.005% 2.5 ML BOTTLE EACHEYE SCH (22:32)
[2019-07-21] MEDS: PIPERACILLIN /TAZOBACTAM 3.375 G in IV D5W 100 ML IV SCH (22:33)
[2019-07-22] VITALS (48 sets, daily range): BP systolic 91–143; BP diastolic 45–109
[2019-07-22] MEDS ORDERED: ENOXAPARIN SODIUM 60 MG/0.6 ML DISP.SYRIN SQ SCH (02:00)
[2019-07-22] MEDS: VANCOMYCIN 1 GM in IV D5W 250ml IV SCH ×2 (05:08→17:08)
[2019-07-22 05:26] LABS: HEMATOCRIT 39 % (39-51); HEMOGLOBIN 12.5 g/dL (13.5-17.5); LYMPHOCYTES # (AUTO) 0.9 /CMM (0.8-4.8); MEAN CORPUSCULAR HGB CONC 32 g/dl (31.0-36.0); MEAN CORPUSCULAR VOLUME 73 fL (80-96); MONOCYTES # (AUTO) 0.3 /CMM (0.1-1.30); PLATELET COUNT (AUTO) 142 /CMM (150-450); RED BLOOD CELL COUNT(AUTO) 5.29 MIL/uL (4.5-6.0); WHITE BLOOD COUNT (AUTO) 9.2 K/uL (4.3-11.0)
[2019-07-22 05:34] LABS: THYROID STIMULATING HORMONE 2.328 uIU/mL (0.358-3.74)
[2019-07-22 05:35] LABS: CALCIUM, SERUM 9.7 mg/dL (8.5-10.1); CREATININE 0.7 mg/dL (0.6-1.3); MAGNESIUM 1.9 mg/dL (1.8-2.4); PHOSPHORUS 3.1 mg/dL (2.5-4.9); POTASSIUM 4.3 mmol/L (3.5-5.1)
[2019-07-22 06:12] LABS: LYMPHOCYTES % (MANUAL) 11 % (16-48); MONOCYTES % (MANUAL) 3 % (0-11.0); NEUTROPHILS % (MANUAL) 86 (42-76)
[2019-07-22] MEDS: PIPERACILLIN /TAZOBACTAM 3.375 G in IV D5W 100 ML IV SCH ×3 (06:33→22:32)
--- NOTE | 2019-07-22 07:21 | NUR ---
RN CLOSING NOTES PATIENT SLEEPING IN BED, BUT EASY TO AROUSE VIA SPEECH, A/OX1, ABLE TO FOLLOW COMMANDS. ON BIPAP (FIO2 60%), TOLERATING WELL, SATURATING 98% AT THE MOMENT. DENIES ANY PAIN. NO SOB OR RESPIRATORY DISTRESS NOTED. ON BEDSIDE MONITOR AFIB WITH HR 90'S. MATA CATH DRAINING VIA GRAVITY WITH YELLOW COLORED URINE NOTED. IV SITES LEFT WRIST 18G AND RIGHT FA 20G, BOTH FLUSHING AND PATENT, IV ANTIBIOTIC RUNNING ORDERED. SAFETY MEASURES IN PLACE; BED ON LOW AND LOCKED POSITION, SIDE RAILS X2, CALL LIGHT WITHIN REACH, HOB ELEVATED. ENDORSED TO AM RN FOR SUZAN.
--- NOTE | 2019-07-22 07:30 | NUR ---
RN NOTES RECEIVED PATIENT IN BED ASLEEP BUT EASILY AWAKEN BY VERBAL STIMULI,ABLE TO TRACK AND ABLE TO ANSWER YES/NO QUESTION BY NODDING THE HEAD. NOT ON ANY DISTRESS AT THIS TIME. ON BIPAP (FIO2 60%), TOLERATING WELL, SATURATING 98% AT THE MOMENT. DENIES ANY PAIN. PATIENT UNABLE TO MOVE ANY OF THE LIMB. CONTROLLED AFIB ON THE MONITOR WITH HR ON THE 70s AT THIS TIME. IV SITES LEFT WRIST 18G AND RIGHT FA 20G, BOTH IN PLACE AND PATENT ON FLUSHING, BOTH SALINE LOCKED. MATA CATH IN PLACE AND DRAINING VIA GRAVITY TO YELLOW COLORED URINE NOTED. HOB KEPT ELEVATED. SAFETY MEASURES OBSERVED AND MAINTAINED. BED ON LOW AND LOCKED POSITION, SIDE RAILS X2, CALL LIGHT WITHIN REACH. WILL CONTINUE TO MONITOR PATIENT CLOSELY
[2019-07-22] MEDS: ALBUTEROL FS 2.5 MG/0.5 ML VIAL.NEB NEB SCH ×4 (07:52→20:02)
[2019-07-22] MEDS: IPRATROPIUM NEB FS 0.5 MG/2.5 ML AMPUL.NEB NEB SCH ×4 (07:52→20:02)
[2019-07-22] MEDS: methylPREDNISolone SOD SUCC 40 MG/ML VIAL IV SCH ×3 (08:29→17:08)
[2019-07-22] MEDS: ARIPIPRAZOLE 5 MG TABLET PO SCH (08:30)
[2019-07-22] MEDS: CARVEDILOL 3.125 MG TABLET PO SCH ×2 (08:32→20:32)
[2019-07-22] MEDS: BENZTROPINE MESYLATE (1 MG) 1 MG TABLET PO SCH (08:32)
[2019-07-22] MEDS: ASPIRIN EC 81 MG TABLET.DR PO SCH (08:32)
[2019-07-22] MEDS: MULTIVIT W/MINERALS 1 TAB TABLET PO SCH (08:33)
[2019-07-22] MEDS: PROSOURCE / PROSTAT (PYXIS) 30 ML UDC PO SCH ×2 (08:33→16:50)
[2019-07-22] MEDS: BACLOFEN (10 MG) 10 MG TABLET PO SCH ×3 (08:33→16:49)
[2019-07-22] MEDS: DIVALPROEX SODIUM 125 MG TABLET.DR PO SCH (08:33)
[2019-07-22] MEDS: GABAPENTIN 100 MG CAPSULE PO SCH ×2 (08:33→16:49)
--- NOTE | 2019-07-22 08:45 | NUR ---
RN NOTES SEEN AND EXAMINED BY DR. CLOUD WITH ORDERS FOR ABG. RESULTS SHOWN AND PER MD INCREASE IPAP FROM 18 TO 22. ORDER NOTED AND CARRIED OUT
[2019-07-22 09:32] LABS: ABG BASE EXCESS 5.7 mmol/L; ABG OXYGEN SATURATION 97.8 % (92.0-98.5); ABG PCO2 60.5 mmHg (35.0-45.0); ABG PH 7.352 (7.350-7.450); AaDO2 231.3 mmHg; COHb 0.2 % (0.5-1.5); MetHb 0.5 % (0.0-1.5); O2Hb 97.1 % (94.0-97.0); SITE, ABG Right Radial; VENT MODE, BG Bipap 18/5 60% RR12
[2019-07-22] MEDS: SOD FERRIC GLUC 125 MG in IV NS 0.9% 100 ML IV SCH (13:28)
--- NOTE | 2019-07-22 15:05 | NUR ---
RT NOTE Pt rec'd on bipap on settings as charted. Pt awake and alert. Mepilex in place and no redness or scarring from bipap mask. Pt shows no signs of resp distress or sob. Alarms are set and audible. Bipap Plugged into red outlet. Will continue to monitor closely Addendum: 07/22/19 at 1507 by CONCETTA PETERSON RT Amended: Links added.
[2019-07-22] MEDS: RIVAROXABAN 10 MG TABLET PO SCH (16:50)
--- NOTE | 2019-07-22 19:10 | NUR ---
RN NOTES ENDORSED FOR CONTINUITY OF CARE. NOT ON ANY FORM OF DISTRESS. TOLERATING CURRENT BIPAP SETTINGS. NO INDICATION OF PAIN NOTED AT THIS TIME. HOB ELEVATED. SAFETY MEASURES IN PLACE. CALL LIGHT WITHIN REACH
--- NOTE | 2019-07-22 19:26 | NUR ---
RN OPENING NOTES RECEIVED PATIENT IN BED AWAKE, A/OX1, ABLE TO FOLLOW COMMANDS. ON BIPAP (FIO2 40%), TOLERATING WELL, SATURATING 98% AT THE MOMENT. DENIES ANY PAIN. NO SOB OR RESPIRATORY DISTRESS NOTED. ON BEDSIDE MONITOR AFIB WITH HR 100'S. MATA CATH DRAINING VIA GRAVITY WITH PINK TINGED COLORED URINE NOTED. IV SITES LEFT WRIST 18G AND RIGHT FA 20G, BOTH FLUSHING AND PATENT, IV ANTIBIOTICS RUNNING ORDERED, NO INFILTRATION NOTED. SAFETY MEASURES IN PLACE; BED ON LOW AND LOCKED POSITION, SIDE RAILS UP X2, CALL LIGHT WITHIN REACH, HOB ELEVATED. WILL CONT TO MONITOR PT CLOSELY.
--- NOTE | 2019-07-22 20:30 | NUR ---
RN NOTES PER AM RN, PATIENT HAD LOW URINE OUTPUT THROUGHOUT AM SHIFT, MD ORDERED TO CHECK WITH BLADDER SCAN. CARRIED OUT ORDER AND SCANNED 15-25ML. PATENT STILL NPO AND NO IV FLUIDS NOTED. WILL CONT TO MONITOR.
[2019-07-22] MEDS: ZOLPIDEM TARTRATE 5 MG TABLET PO SCH (21:07)
[2019-07-22] MEDS: SENNOSIDES 8.6 MG TABLET PO SCH (21:08)
[2019-07-22] MEDS: LATANOPROST EYE DROP 0.005% 2.5 ML BOTTLE EACHEYE SCH (22:32)
[2019-07-23] VITALS (36 sets, daily range): BP systolic 82–136; BP diastolic 42–99
[2019-07-23 05:00] LABS: CALCIUM, SERUM 9.8 mg/dL (8.5-10.1); CREATININE 0.9 mg/dL (0.6-1.3); POTASSIUM 4.7 mmol/L (3.5-5.1)
[2019-07-23 05:01] LABS: BASOPHILS % (AUTO) 0.3 % (0.0-2.0); HEMATOCRIT 38 % (39-51); HEMOGLOBIN 12.6 g/dL (13.5-17.5); LYMPHOCYTES # (AUTO) 1.4 /CMM (0.8-4.8); LYMPHOCYTES % (AUTO) 13.4 % (20.0-44.0); MEAN CORPUSCULAR HGB CONC 33 g/dl (31.0-36.0); MEAN CORPUSCULAR VOLUME 73 fL (80-96); MONOCYTES # (AUTO) 0.5 /CMM (0.1-1.30); MONOCYTES % (AUTO) 4.5 % (2.0-12.0); NEUTROPHILS # (AUTO) 8.5 /CMM (1.8-8.9); NEUTROPHILS % (AUTO) 81.8 % (43.0-81.0); PLATELET COUNT (AUTO) 161 /CMM (150-450); RED BLOOD CELL COUNT(AUTO) 5.21 MIL/uL (4.5-6.0); WHITE BLOOD COUNT (AUTO) 10.4 K/uL (4.3-11.0)
[2019-07-23] MEDS: PIPERACILLIN /TAZOBACTAM 3.375 G in IV D5W 100 ML IV SCH ×3 (06:03→21:07)
--- NOTE | 2019-07-23 07:16 | NUR ---
RN CLOSING NOTES PATIENT SLEEPING IN BED, BUT EASY TO AROUSE VIA SPEECH, A/OX1, ABLE TO FOLLOW COMMANDS. ON BIPAP (FIO2 40%), TOLERATING WELL, SATURATING 97% AT THE MOMENT. NO SOB OR RESPIRATORY DISTRESS NOTED. ON BEDSIDE MONITOR AFIB WITH HR 100'S. IV SITES LEFT WRIST 18G AND RIGHT FA 20G, BOTH FLUSHING AND PATENT, IV ANTIBIOTIC RUNNING ORDERED, NO INFILTRATION NOTED. ALL MD ORDERS ATTENDED. SAFETY MEASURES IN PLACE; BED ON LOW AND LOCKED POSITION, SIDE RAILS X2, CALL LIGHT WITHIN REACH, HOB ELEVATED. ENDORSED TO AM RN FOR SUZAN.
--- NOTE | 2019-07-23 07:30 | NUR ---
RN NOTES RECEIVED BACK PATIENT FROM THE PREVIOUS SHIFT,PATIENT AWAKE, ORIENTED X1, ABLE TO CONVERSE BUT WORDS ARE MUFFLED DUE TO THE USE OF MASK. NOT ON ANY FORM OF DISTRESS. TOLERATING BIPAP AT 40% FIO2, SATING 97%. AFIB WITH HR ON THE 100S. PATIENT CALM IN BED, NO INDICATION OF PAIN NOTED. URINE ALONG THE TUBING IS PINK TINGED- WILL CONTINUE TO MONITOR. HOB ELEVATED. SAFETY MEASURES IN PLACE. BED IN LOW AND LOCKED POSITION. WILL CONTINUE TO MONITOR PATIENT ACCORDINGLY
[2019-07-23] MEDS: IPRATROPIUM NEB FS 0.5 MG/2.5 ML AMPUL.NEB NEB SCH ×4 (07:35→21:24)
[2019-07-23] MEDS: ALBUTEROL FS 2.5 MG/0.5 ML VIAL.NEB NEB SCH ×4 (07:35→21:24)
--- NOTE | 2019-07-23 08:10 | NUR ---
off bipap zero distress noted low flow o2 rn aware
--- NOTE | 2019-07-23 08:10 | NUR ---
RN NOTES PATIENT PLACED ON NASAL CANNULA WITH OXYGEN AT 3 LPM. SATING 98% AT THIS TIME. WILL CONTINUE TO MONITOR PATIENT ACCORDINGLY
[2019-07-23] MEDS: DIVALPROEX SODIUM 125 MG TABLET.DR PO SCH (10:03)
[2019-07-23] MEDS: ASPIRIN EC 81 MG TABLET.DR PO SCH (10:03)
[2019-07-23] MEDS: ARIPIPRAZOLE 5 MG TABLET PO SCH (10:04)
[2019-07-23] MEDS: GABAPENTIN 100 MG CAPSULE PO SCH ×2 (10:04→16:26)
[2019-07-23] MEDS: BACLOFEN (10 MG) 10 MG TABLET PO SCH ×3 (10:04→16:26)
[2019-07-23] MEDS: methylPREDNISolone SOD SUCC 40 MG/ML VIAL IV SCH ×3 (10:04→16:26)
[2019-07-23] MEDS: MULTIVIT W/MINERALS 1 TAB TABLET PO SCH (10:04)
[2019-07-23] MEDS: CARVEDILOL 3.125 MG TABLET PO SCH ×2 (10:05→21:13)
[2019-07-23] MEDS: BENZTROPINE MESYLATE (1 MG) 1 MG TABLET PO SCH (10:05)
[2019-07-23] MEDS: PROSOURCE / PROSTAT (PYXIS) 30 ML UDC PO SCH ×2 (10:06→16:26)
[2019-07-23] MEDS: SOD FERRIC GLUC 125 MG in IV NS 0.9% 100 ML IV SCH (15:07)
--- NOTE | 2019-07-23 15:30 | NUR ---
RN NOTES OBTAINED ORDER TO TRANSFER PATIENT TO TELEMETRY. ORDER NOTED AND CARRIED OUT
--- NOTE | 2019-07-23 15:45 | NUR ---
RN NOTES TRANSFERRED TO ROOM 315-1 VIA ACLS PROTOCOL
--- NOTE | 2019-07-23 15:55 | NUR ---
POST TRONIC MACHINE OPERATORPROGRAM CLINICIAN NOTE RECEIVED PATIENT FROM ICU. REPORT TAKEN FROM CROW RN. PATIENT ARRIVED BY BED. PATIENT IN NO ACUTE DISTRESS. NO SOB NOTED. PATIENT BREATHING IS EVEN AND UNLABORED. PATIENT BREATHING ON OXYGEN NC 3L. PATIENT ON CARDIAC MONITORING READING CONTROLLED AFIB HR 88. PATIENT BED IS LOCKED AND IN LOWEST POSITION. BED ALARM IS ON. SAFETY PRECAUTIONS IN PLACE. HOB IS ELEVATED. CALL LIGHT WITHIN REACH. WILL CONTINUE TO MONITOR.
[2019-07-23] MEDS: RIVAROXABAN 10 MG TABLET PO SCH (16:28)
--- NOTE | 2019-07-23 18:40 | NUR ---
SOLID GLASS ROD DOWEL MACHINE OPERATOR CLOSING NOTE PATIENT RESTING COMFORTABLY IN BED. PATIENT IN NO ACUTE DISTRESS. NO SOB NOTED. PATIENT BREATHING IS EVEN AND UNLABORED. PATIENT BREATHING ON OXYGEN NC 3L. PATIENT ON CARDIAC MONITORING READING CONTROLLED AFIB HR 85. PATIENT KEPT CLEAN AND DRY THROUGHOUT SHIFT. PATIENT TURNED AND REPOSITIONED Q2H. PATIENT EXTREMITIES OFFLOADED ON PILLOWS. PATIENT BED IS LOCKED AND IN LOWEST POSITION. BED ALARM IS ON. SAFETY PRECAUTIONS IN PLACE. HOB IS ELEVATED. CALL LIGHT WITHIN REACH. WILL ENDORSE CARE TO PM SHIFT FOR SUZAN.
--- NOTE | 2019-07-23 19:42 | NUR ---
PRODUCT PICKER OPENING NOTES Received patient resting in bed watching TV, A/O x2. Patient on 3L via NC with breathing even and unlabored, no SOB noted. Tele monitor reading cotrolled AFIB 86. IV located on R FA #20 and L wrist #18 patent and intact. Willett catheter is in place with dark yellow urine. HOB is in high fowlers position. Safety precautions in place with bed in lowest position, call light within reach, breaks on, and side rails up x2. Will continue to monitor.
[2019-07-23] MEDS: LATANOPROST EYE DROP 0.005% 2.5 ML BOTTLE EACHEYE SCH (21:06)
[2019-07-23] MEDS: SENNOSIDES 8.6 MG TABLET PO SCH (21:07)
[2019-07-23] MEDS: ZOLPIDEM TARTRATE 5 MG TABLET PO SCH (21:08)
[2019-07-24] VITALS (7 sets, daily range): BP systolic 100–150; BP diastolic 61–74
[2019-07-24 04:20] LABS: BASOPHILS % (AUTO) 0.2 % (0.0-2.0); HEMATOCRIT 36 % (39-51); HEMOGLOBIN 11.5 g/dL (13.5-17.5); LYMPHOCYTES # (AUTO) 1.9 /CMM (0.8-4.8); MEAN CORPUSCULAR HGB CONC 32 g/dl (31.0-36.0); MEAN CORPUSCULAR VOLUME 74 fL (80-96); MONOCYTES # (AUTO) 0.4 /CMM (0.1-1.30); MONOCYTES % (AUTO) 4.1 % (2.0-12.0); NEUTROPHILS # (AUTO) 6.5 /CMM (1.8-8.9); NEUTROPHILS % (AUTO) 73.7 % (43.0-81.0); PLATELET COUNT (AUTO) 179 /CMM (150-450); RED BLOOD CELL COUNT(AUTO) 4.84 MIL/uL (4.5-6.0); WHITE BLOOD COUNT (AUTO) 8.8 K/uL (4.3-11.0)
[2019-07-24 04:29] LABS: CALCIUM, SERUM 9.6 mg/dL (8.5-10.1); POTASSIUM 4.2 mmol/L (3.5-5.1)
[2019-07-24] MEDS: PIPERACILLIN /TAZOBACTAM 3.375 G in IV D5W 100 ML IV SCH ×3 (05:20→22:17)
--- NOTE | 2019-07-24 06:38 | NUR ---
MS RN CLOSING NOTES Patient current resting comfortable in bed a/o x2, able to make needs known. Patient on 3L O2 via NC breathing even and unlabored, no SOB noted. No current complaints of pain or discomfort. No signs of acute distress, Patient on athletic monitor reading controlled A FIB HR 76. IV located on R FA #20 TKO. Willett catheter in place with dark yellow urine and some sediments present.All needs were met throughout the nigh, patient was kept clean and dry, turned and repositioned, offloaded extremities. Safety precautions in place with bed in lowest position, locked, side rails up x2, and call light within reach. Will endorse to on oncoming shift about SUZAN.
--- NOTE | 2019-07-24 07:31 | NUR ---
RN OPENING NOTES Received patient on 3l nasal cannula, no sob noted, patient denies pain at this time and shows no distress. Remains on tele, and is on a cardiac diet. R FA 20 SL. Bed at the lowest setting, call light within reach, side rails up x2.
[2019-07-24] MEDS: CARVEDILOL 3.125 MG TABLET PO SCH ×2 (08:14→21:00)
[2019-07-24] MEDS: methylPREDNISolone SOD SUCC 40 MG/ML VIAL IV SCH ×3 (08:14→16:59)
[2019-07-24] MEDS: DIVALPROEX SODIUM 125 MG TABLET.DR PO SCH (08:15)
[2019-07-24] MEDS: ARIPIPRAZOLE 5 MG TABLET PO SCH (08:15)
[2019-07-24] MEDS: BACLOFEN (10 MG) 10 MG TABLET PO SCH ×3 (08:15→16:59)
[2019-07-24] MEDS: ASPIRIN EC 81 MG TABLET.DR PO SCH (08:15)
[2019-07-24] MEDS: MULTIVIT W/MINERALS 1 TAB TABLET PO SCH (08:15)
[2019-07-24] MEDS: FLUCONAZOLE (100 MG) 100 MG TABLET PO SCH (08:15)
[2019-07-24] MEDS: BENZTROPINE MESYLATE (1 MG) 1 MG TABLET PO SCH (08:15)
[2019-07-24] MEDS: PROSOURCE / PROSTAT (PYXIS) 30 ML UDC PO SCH ×2 (08:16→17:12)
[2019-07-24] MEDS: GABAPENTIN 100 MG CAPSULE PO SCH ×2 (08:16→16:59)
[2019-07-24] MEDS: IPRATROPIUM NEB FS 0.5 MG/2.5 ML AMPUL.NEB NEB SCH ×4 (13:14→19:48)
[2019-07-24] MEDS: ALBUTEROL FS 2.5 MG/0.5 ML VIAL.NEB NEB SCH ×4 (13:14→19:48)
[2019-07-24] MEDS: SOD FERRIC GLUC 125 MG in IV NS 0.9% 100 ML IV SCH (14:01)
[2019-07-24] MEDS: RIVAROXABAN 10 MG TABLET PO SCH (17:00)
--- NOTE | 2019-07-24 18:05 | NUR ---
RN CLOSING NOTES patient remains on 2l o2 nasal cannula. no sob noted, patient denies pain at this time. Patient remains a/o x3 and takes medications whole by mouth with no issues. Willett draining well at this time with no obstruction noted. No fluids, but does have a R fa 20 and L wrist 18 gauge. Turned Q2H and placed mepilex on sacral area. Bed at the lowest setting, call light within reach, side rails up x2. Will give report to NOC RN for SUZAN bedside.
--- NOTE | 2019-07-24 19:50 | NUR ---
MS RN OPENING NOTES Received patient resting in bed watching TV, A/O x2. Patient on 3L via NC with breathing even and unlabored, no SOB noted. IV located on R FA #20 and L wrist #18 patent and intact. Willett catheter is in place with dark yellow urine. HOB is in high fowlers position. Safety precautions in place with bed in lowest position, call light within reach, breaks on, and side rails up x2. Will continue to monitor.
[2019-07-24] MEDS: LATANOPROST EYE DROP 0.005% 2.5 ML BOTTLE EACHEYE SCH (22:17)
[2019-07-24] MEDS: SENNOSIDES 8.6 MG TABLET PO SCH (22:17)
[2019-07-25] MEDS: PIPERACILLIN /TAZOBACTAM 3.375 G in IV D5W 100 ML IV SCH ×3 (05:09→22:08)
--- NOTE | 2019-07-25 07:07 | NUR ---
MS RN CLOSING NOTES Patient current resting comfortable in bed a/o x2, able to make needs known. Patient on 3L O2 via NC breathing even and unlabored, no SOB noted. No current complaints of pain or discomfort. No signs of acute distress. IV located on R FA #20 TKO. Willett catheter in place noted with dark gerson tea colored urine with blood tinged color .All needs were met throughout the nigh, patient was kept clean and dry, turned and repositioned, offloaded extremities. Safety precautions in place with bed in lowest position, locked, side rails up x2, and call light within reach. Will endorse to on oncoming shift about SUZAN.
[2019-07-25 07:11] LABS: BASOPHILS % (AUTO) 0.2 % (0.0-2.0); HEMATOCRIT 33 % (39-51); HEMOGLOBIN 10.8 g/dL (13.5-17.5); LYMPHOCYTES # (AUTO) 1.5 /CMM (0.8-4.8); LYMPHOCYTES % (AUTO) 23.6 % (20.0-44.0); MEAN CORPUSCULAR HGB CONC 33 g/dl (31.0-36.0); MEAN CORPUSCULAR VOLUME 73 fL (80-96); MONOCYTES # (AUTO) 0.3 /CMM (0.1-1.30); MONOCYTES % (AUTO) 4.8 % (2.0-12.0); NEUTROPHILS # (AUTO) 4.5 /CMM (1.8-8.9); NEUTROPHILS % (AUTO) 71.4 % (43.0-81.0); PLATELET COUNT (AUTO) 161 /CMM (150-450); RED BLOOD CELL COUNT(AUTO) 4.51 MIL/uL (4.5-6.0); WHITE BLOOD COUNT (AUTO) 6.3 K/uL (4.3-11.0)
[2019-07-25 07:33] LABS: POTASSIUM 4.2 mmol/L (3.5-5.1)
[2019-07-25] MEDS: ALBUTEROL FS 2.5 MG/0.5 ML VIAL.NEB NEB SCH ×4 (07:40→20:18)
[2019-07-25] MEDS: IPRATROPIUM NEB FS 0.5 MG/2.5 ML AMPUL.NEB NEB SCH ×4 (07:40→20:18)
[2019-07-25 08:00] VITALS: BP 116/72
[2019-07-25] MEDS: DIVALPROEX SODIUM 125 MG TABLET.DR PO SCH ×2 (09:00→15:37)
[2019-07-25] MEDS: ARIPIPRAZOLE 5 MG TABLET PO SCH (09:00)
[2019-07-25 09:36] LABS: ABG OXYGEN SATURATION 92.9 % (92.0-98.5); ABG PCO2 56.9 mmHg (35.0-45.0); ABG PH 7.364 (7.350-7.450); ABG PO2 74.3 mmHg (75.0-100.0); AaDO2 72.7 mmHg; COHb 0.7 % (0.5-1.5); MetHb 0.5 % (0.0-1.5); O2Hb 91.8 % (94.0-97.0); SITE, ABG Right Radial; VENT MODE, BG NC 3L
[2019-07-25] MEDS: GABAPENTIN 100 MG CAPSULE PO SCH ×2 (10:28→18:19)
[2019-07-25] MEDS: methylPREDNISolone SOD SUCC 40 MG/ML VIAL IV SCH ×3 (10:28→18:14)
[2019-07-25] MEDS: ASPIRIN EC 81 MG TABLET.DR PO SCH (10:28)
[2019-07-25] MEDS: FLUCONAZOLE (100 MG) 100 MG TABLET PO SCH (10:29)
[2019-07-25] MEDS: CARVEDILOL 3.125 MG TABLET PO SCH ×2 (10:29→22:06)
[2019-07-25] MEDS: BACLOFEN (10 MG) 10 MG TABLET PO SCH ×3 (10:30→18:14)
[2019-07-25] MEDS: MULTIVIT W/MINERALS 1 TAB TABLET PO SCH (10:33)
[2019-07-25] MEDS: PROSOURCE / PROSTAT (PYXIS) 30 ML UDC PO SCH ×2 (10:33→18:14)
[2019-07-25] MEDS: BENZTROPINE MESYLATE (1 MG) 1 MG TABLET PO SCH (11:27)
[2019-07-25] MEDS: SOD FERRIC GLUC 125 MG in IV NS 0.9% 100 ML IV SCH (14:12)
[2019-07-25 16:00] VITALS: BP 131/67
[2019-07-25] MEDS: RIVAROXABAN 10 MG TABLET PO SCH (18:17)
--- NOTE | 2019-07-25 18:30 | NUR ---
abg's given to dr. solano per resp. tx.pco2 elevated as has been going on.hep locks in place.f/c to grv. drainage with slightly sanguinous drainage.leni pad tufter made aware.cooperative,eating,taking meds.
--- NOTE | 2019-07-25 19:50 | NUR ---
MS RN OPENING NOTES RECEIVED PATIENT FROM MORNING SHIFT. ALERT AND ORIENTED X 2-3 VERBALLY RESPONSIVE. BREATHING REGULAR AND UNLABORED ON OXYGEN AT 3L/min VIA NASAL CANNULA. RIGHT FOREARM G20 AND LEFT WRIST G20 IV LINES INTACT AND PATENT, FLUSHING WELL WITH NO BLEEDING OR S/S OF INFILTRATION NOTED. BODY ASSESSMENT DONE, SEEN WITH BUE/BLE EDEMA AND SACRAL SCAR TISSUE. MATA CATH INTACT AND PATENT WITH MODERATE TEA COLORED BLOOD TINGED URINE ON URINARY BAG. NO REPORTS OF PAIN/DISCOMFORT OF THE TIME. WILL REPOSITION EVERY 2HRS AND NEEDED. BED LOW AND LOCKED ON SEMI FOWLERS POSITION. CALL LIGHT IN REACH. WILL CONTINUE TO MONITOR.
[2019-07-25 20:00] VITALS: BP 136/70
[2019-07-25 22:00] VITALS: BP 136/70
[2019-07-25] MEDS: SENNOSIDES 8.6 MG TABLET PO SCH (22:06)
[2019-07-25] MEDS: LATANOPROST EYE DROP 0.005% 2.5 ML BOTTLE EACHEYE SCH (22:08)
[2019-07-26] MEDS: PIPERACILLIN /TAZOBACTAM 3.375 G in IV D5W 100 ML IV SCH ×2 (05:14→16:02)
--- NOTE | 2019-07-26 06:31 | NUR ---
MS RN CLOSING NOTES PATIENT IN BED ALERT AND ORIENTED X 2-3 WITH EPISODES OF CONFUSION VERBALLY RESPONSIVE AND ABLE TO FOLLOW DIRECTIONS. BREATHING REGULAR AND UNLABORED ON OXYGEN AT 3L/min VIA NASAL CANNULA. RIGHT FOREARM G20 IV LINE INTACT AND INFUSING WELL. ON-GOING WOUND TREATMENT PROVIDED. MATA CATH INTACT AND PATENT WITH 800cc TEA COLORED BLOOD TINGED URINE ON URINARY BAG. NO REPORTS OF PAIN/DISCOMFORT OF THE TIME. REPOSITIONED EVERY 2HRS AND NEEDED. BED LOW AND LOCKED ON SEMI FOWLERS POSITION. CALL LIGHT IN REACH. WILL ENDORSE TO MORNING SHIFT FOR SUZAN.
[2019-07-26 06:57] LABS: BASOPHILS % (AUTO) 0.4 % (0.0-2.0); HEMATOCRIT 37 % (39-51); HEMOGLOBIN 12.1 g/dL (13.5-17.5); LYMPHOCYTES # (AUTO) 0.4 /CMM (0.8-4.8); LYMPHOCYTES % (AUTO) 6.9 % (20.0-44.0); MEAN CORPUSCULAR HGB CONC 33 g/dl (31.0-36.0); MEAN CORPUSCULAR VOLUME 73 fL (80-96); MONOCYTES # (AUTO) 0.5 /CMM (0.1-1.30); NEUTROPHILS % (AUTO) 84.7 % (43.0-81.0); PLATELET COUNT (AUTO) 169 /CMM (150-450); RED BLOOD CELL COUNT(AUTO) 5.05 MIL/uL (4.5-6.0); WHITE BLOOD COUNT (AUTO) 5.9 K/uL (4.3-11.0)
[2019-07-26 07:15] LABS: CALCIUM, SERUM 9.2 mg/dL (8.5-10.1); CREATININE 0.9 mg/dL (0.6-1.3); MAGNESIUM 2.1 mg/dL (1.8-2.4); PHOSPHORUS 2.5 mg/dL (2.5-4.9)
[2019-07-26] MEDS: ALBUTEROL FS 2.5 MG/0.5 ML VIAL.NEB NEB SCH ×3 (07:35→15:23)
[2019-07-26] MEDS: IPRATROPIUM NEB FS 0.5 MG/2.5 ML AMPUL.NEB NEB SCH ×3 (07:35→15:23)
--- NOTE | 2019-07-26 07:50 | NUR ---
ON AM ROUNDS FIND PT. WITH 02 OFF,CHECKED POX AND 78%.O2 ON IMMEDIATELY.RESP.TX NOTIFIED.POX UP TO 95%WITHIN MINUTES.
[2019-07-26 08:00] VITALS: BP 116/80
[2019-07-26] MEDS: methylPREDNISolone SOD SUCC 40 MG/ML VIAL IV SCH ×3 (10:31→17:00)
[2019-07-26] MEDS: ASPIRIN EC 81 MG TABLET.DR PO SCH (10:31)
[2019-07-26] MEDS: PROSOURCE / PROSTAT (PYXIS) 30 ML UDC PO SCH ×2 (10:31→17:00)
[2019-07-26] MEDS: BENZTROPINE MESYLATE (1 MG) 1 MG TABLET PO SCH (10:31)
[2019-07-26] MEDS: ARIPIPRAZOLE 5 MG TABLET PO SCH (10:32)
[2019-07-26] MEDS: DIVALPROEX SODIUM 125 MG TABLET.DR PO SCH (10:32)
[2019-07-26] MEDS: CARVEDILOL 3.125 MG TABLET PO SCH (10:32)
[2019-07-26] MEDS: MULTIVIT W/MINERALS 1 TAB TABLET PO SCH (10:37)
[2019-07-26] MEDS: FLUCONAZOLE (100 MG) 100 MG TABLET PO SCH (10:37)
[2019-07-26] MEDS: BACLOFEN (10 MG) 10 MG TABLET PO SCH ×3 (10:38→17:58)
[2019-07-26] MEDS: GABAPENTIN 100 MG CAPSULE PO SCH ×2 (10:38→17:59)
[2019-07-26] MEDS: SOD FERRIC GLUC 125 MG in IV NS 0.9% 100 ML IV SCH (13:40)
[2019-07-26 16:00] VITALS: BP 126/64
[2019-07-26] MEDS ORDERED: FLUC100T8 PO (16:20)
[2019-07-26] MEDS ORDERED: CARV3.122 PO (16:20)
[2019-07-26] MEDS ORDERED: RIVA10TA PO (16:20)
[2019-07-26] MEDS ORDERED: PRED5TAB48 PO ×2 (16:26)
[2019-07-26] MEDS ORDERED: PRED20TA PO ×2 (16:26)
[2019-07-26] MEDS: RIVAROXABAN 10 MG TABLET PO SCH (17:59)
--- NOTE | 2019-07-26 18:15 | NUR ---
REPORT CALLED TO FACILITY,RN SPOKE TO NURSE PAULSON.DRIVERS HERE AND GIVEN REPORT.TAKEN VIA AMB. TO FACILITY.
== END 2019-07-26 18:12 | DRG 177 ==
LOC: ER 12:17 → ICU 14:27 → TELE 07-23 15:39 → MED 07-24 15:01
PROVIDERS: ADMIT Nurse Practitioner Acute Care; ATTEND Hospitalist
PROC: 5A09457 Assistance with Respiratory Ventilation, 24-96 Consecutive Hours, Continuous Positive Airway Pressure (ICD-10-PCS; principal; 2019-07-21)
DX: J69.0 Pneumonitis due to inhalation of food and vomit (principal); I21.A1 Myocardial infarction type 2; I50.33 Acute on chronic diastolic (congestive) heart failure; G93.41 Metabolic encephalopathy; J96.02 Acute respiratory failure with hypercapnia; N17.9 Acute kidney failure, unspecified; J44.1 Chronic obstructive pulmonary disease with (acute) exacerbation; I48.20 Chronic atrial fibrillation, unspecified; I69.351 Hemiplegia and hemiparesis following cerebral infarction affecting right dominant side; D68.69 Other thrombophilia; J44.0 Chronic obstructive pulmonary disease with (acute) lower respiratory infection; B37.0 Candidal stomatitis; R13.10 Dysphagia, unspecified; D50.9 Iron deficiency anemia, unspecified; I11.0 Hypertensive heart disease with heart failure; I48.0 Paroxysmal atrial fibrillation; D72.829 Elevated white blood cell count, unspecified; F03.90 Unspecified dementia, unspecified severity, without behavioral disturbance, psychotic disturbance, mood disturbance, and anxiety; H91.90 Unspecified hearing loss, unspecified ear; Z79.82 Long term (current) use of aspirin; Z87.01 Personal history of pneumonia (recurrent); K21.9 Gastro-esophageal reflux disease without esophagitis; H40.9 Unspecified glaucoma; G40.909 Epilepsy, unspecified, not intractable, without status epilepticus; F41.9 Anxiety disorder, unspecified; F20.9 Schizophrenia, unspecified; G47.00 Insomnia, unspecified; Z87.440 Personal history of urinary (tract) infections; L90.5 Scar conditions and fibrosis of skin; M24.522 Contracture, left elbow; M24.521 Contracture, right elbow; E11.40 Type 2 diabetes mellitus with diabetic neuropathy, unspecified
CPT/HCPCS: 36415; 36600; 71045-TC; 80048-TC; 80061-TC; 80076-TC; 80202-TC; 81000-TC; 82728-TC; 82803-TC; 83540-TC; 83605-TC; 83735-TC; 83880; 84100-TC; 84443-TC; 84484-TC; 85025-TC; 85730-TC; 87040-TC; 87081-TC; 87086-TC; 93307-TC; 94640-TC; 94799-TC; A4349; G0378; J1650; J1940; J2310; J2543; J2916; J2920; J2930; J3370; J7030; J7040; J7050; J7060

== ENCOUNTER 2019-11-05 21:54 | Inpatient (IN) | payer MEDICARE, MEDICAID ==
[~2019-11-05] VITALS: Ht 167.6 cm; Wt 92.1 kg
[~2019-11-05 21:54] MED LIST changes: +ACET650T10 PO; +AMIN887L PO; +ARIP5TAB10 PO; -ASPI-1169 PO; +ASPI-605 PO; +BACL10TA PO; +BENZ2AMP3 PO; +CARV3.122 PO; +DIVA500T2 PO; +FLUC100T8 PO; +GABA-532 PO; +HYDR-4384 PO; +LATA2.5D2 OP; -LORA-259 PO; +MAGN400O6 PO; -METO-295 PO; +MULT-439 PO; +PRED20TA PO; +PRED5TAB48 PO; +RIVA10TA PO; +SENN-175 PO; +ZOLP5TAB2 PO
--- NOTE | 2019-11-05 22:07 | NUR ---
PT BIBA FROM [facility] C/O PT DIFFICULTY TO AWAKE. PER REPORT, BEFORE TRANSFER, PT STARTED TO "BE HIMSELF" AGAIN. PT RESPONSIVE TO MECHANICAL STIMULUS, VSS, PLACED ON 4 LITERS NC, RR EVEN AND UNLABORED ON RA W NAD NOTED. PT CONNECTED TO THE MONITOR AND POX
--- NOTE | 2019-11-05 22:15 | NUR ---
CHEMO HERRERA RN FROM [facility], PT IS NORMALLY ON 4 LPM N/C
[2019-11-05] MEDS ORDERED: LIDOCAINE 2% JEL UROJET 10 ML MM ONE ×2 (22:52→23:00)
[2019-11-05 23:14] LABS: APPEARANCE,URINE Cloudy (CLEAR); BILIRUBIN,URINE SMALL (NEGATIVE); BLOOD, URINE Large Ery/uL (NEGATIVE); COLOR,URINE Yellow (YELLOW); KETONES,URINE Negative (NEGATIVE); LEUKOCYTE ESTERASE ,URINE Large (NEGATIVE); NITRITE, URINE Positive (NEGATIVE); PH,URINE 5.5 (5.0-8.0); PROTEIN,URINE >=300 mg/dl (NEGATIVE); UGLUCOSE Negative (NEGATIVE)
[2019-11-05 23:17] LABS: CALCIUM, SERUM 9.1 mg/dL (8.5-10.1); CARBON DIOXIDE 30 mmol/L (21-32); CHLORIDE 104 mmol/L (98-107); CREATININE 1.1 mg/dL (0.6-1.3); GLUCOSE 105 mg/dL (74-106); POTASSIUM 4.3 mmol/L (3.5-5.1); SODIUM SERUM 139 mmol/L (136-145); UREA NITROGEN, BLOOD 32 mg/dL (7-18)
[2019-11-05 23:23] LABS: ALANINE AMINOTRANSFERASE 13 U/L (12-78); ALBUMIN 2.7 g/dL (3.4-5.0); ALKALINE PHOSPHATASE 76 U/L (46-116); ASPARTATE AMINOTRANSFERASE 14 U/L (15-37); BILIRUBIN,DIRECT 0.2 mg/dL (0.0-0.2); BILIRUBIN,TOTAL 0.6 mg/dL (0.2-1.0); TOTAL PROTEIN, SERUM 7.7 g/dL (6.4-8.2)
[2019-11-05 23:25] LABS: SERUM AMMONIA 9 umol/L (11-32)
--- NOTE | 2019-11-05 23:26 | NUR ---
URINE COLLECTED AND SENT TO LAB
[2019-11-05 23:30] LABS: BASOPHILS # (AUTO) 0.1 /CMM (0.0-0.2); BASOPHILS % (AUTO) 0.5 % (0.0-2.0); EOSINOPHILS % (AUTO) 0.1 % (0.0-6.0); HEMATOCRIT 32 % (39-51); HEMOGLOBIN 10.2 g/dL (13.5-17.5); LYMPHOCYTES # (AUTO) 1.6 /CMM (0.8-4.8); LYMPHOCYTES % (AUTO) 10.4 % (20.0-44.0); MEAN CORPUSCULAR HGB CONC 32 g/dl (31.0-36.0); MEAN CORPUSCULAR VOLUME 77 fL (80-96); MONOCYTES # (AUTO) 0.5 /CMM (0.1-1.30); MONOCYTES % (AUTO) 3.4 % (2.0-12.0); NEUTROPHILS % (AUTO) 85.6 % (43.0-81.0); PLATELET COUNT (AUTO) 149 /CMM (150-450); RED BLOOD CELL COUNT(AUTO) 4.22 MIL/uL (4.5-6.0); WHITE BLOOD COUNT (AUTO) 15.3 K/uL (4.3-11.0)
[2019-11-05 23:37] LABS: THYROID STIMULATING HORMONE 4.691 uIU/mL (0.358-3.74)
[2019-11-06] VITALS (68 sets, daily range): BP systolic 66–149; BP diastolic 35–101
[2019-11-06 00:03] LABS: BACTERIA,URINE Few /HPF (None Seen); SQUAMOUS EPITHELIAL CELL,UR Moderate /HPF (None Seen); WBC,URINE 21-50 /HPF (0-3)
[2019-11-06] MEDS ORDERED: CEFTRIAXONE 1 G in IV D5W 50 ML IV ONE (00:30)
[2019-11-06] MEDS ORDERED: CEFTRIAXONE 1GM BAG (ER ONLY) 50 ML IV ONE (00:32)
--- NOTE | 2019-11-06 01:15 | NUR ---
PT'S BP IS 79/52 MD MADE AWARE. MD ORDER RECEIVED
[2019-11-06] MEDS ORDERED: IV NS 0.9% 1,000 ML BAG IV ONE ×2 (01:30→02:00)
[2019-11-06] MEDS ORDERED: HYDROCODONE/APAP 5/325MG 1 EACH TABLET PO PRN (02:00)
[2019-11-06] MEDS ORDERED: TRAMADOL HCL 50 MG TABLET PO PRN (02:00)
[2019-11-06] MEDS ORDERED: BISACODYL SUPP (10 MG) 10 MG/SUPP.RECT SUPP.RECT RC PRN (02:00)
[2019-11-06] MEDS ORDERED: MAGNESIUM HYDROXIDE 30 ML UDC PO PRN (02:00)
[2019-11-06] MEDS ORDERED: NA PHOS,M-B/NA PHOS,DI-BA 1 EA ENEMA RC PRN (02:00)
[2019-11-06] MEDS ORDERED: DOPamine 400MG/D5W 250ML RTU 250 ML IV ONE (02:33)
[2019-11-06] MEDS ORDERED: DOPamine 400 MG/D5W 250 ML RTU PIGGYBACK IV ONE (03:00)
--- NOTE | 2019-11-06 03:53 | NUR ---
PT TRANSFERRED TO ICU IN STABLE CONDITION VIA ACLS PROTOCOL
--- NOTE | 2019-11-06 05:15 | NUR ---
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 PT IS CONFUSED, DISORIENTED, DOES NOT FOLLOW ANY COMMANDS. 02 4L VIA N/C. BILATERAL CRACKLES. SCOPE-CONTROLLED A.FIB WITH OCCASIONALLY PVC'S. PT IS AFEBRILE. DOPAMINE DRIP, WHICH STARTED IN ER D/T HYPOTENSION, WAS D/C. BP STABLE. PT IS INCONTINENT IN DIAPERS. WILL CONTINUE CLOSE MONITORING.
--- NOTE | 2019-11-06 05:50 | NUR ---
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 RESTARTED DOPAMINE DRIP @ 5 MCG.
--- NOTE | 2019-11-06 07:00 | NUR ---
RN NOTE RECEIVED PT ON BED , DOES NOT FOLLOW COMMAND, RESPONSE TO PAINFUL STIMULI, MUMBLING WORDS , ON 4 L O2 N/C , O2 SAT WNL, ON TELE A.FIB, HR IN 70'S , RIGHT FOREARM AND RIGHT THUMB IV SITES G 20 , CLEAN, DRY AND INTACT, DOPAMINE AT 5 MCG/KG/MIN RUNNING ,WILL TITRATE ACCORDINGLY PER MD ORDER . SR UP x3, CALL LIGHT WITHIN EASY REACH, BED LOCKED AND IN LOWEST POSITION, CONTINUE TO MONITOR .
[2019-11-06] MEDS ORDERED: IV NS 0.9% 1,000 ML IV PRN (07:15)
[2019-11-06] MEDS ORDERED: Z GUARD REMEDY 2 OZ OINT TP PRN (07:30)
[2019-11-06] MEDS ORDERED: ACETAMINOPHEN 325 MG TABLET PO PRN (07:30)
[2019-11-06] MEDS ORDERED: ONDANSETRON HCL/PF 4 MG/2 ML VIAL IVP PRN (07:30)
[2019-11-06] MEDS: IV NS 0.9% 1,000 ML IV PRN ×4 (08:11→23:17)
[2019-11-06] MEDS: DIVALPROEX SODIUM 125 MG TABLET.DR PO SCH (09:00)
[2019-11-06] MEDS ORDERED: predniSONE 10 MG TABLET PO SCH (09:00)
[2019-11-06] MEDS: ARIPIPRAZOLE 5 MG TABLET PO SCH (09:00)
[2019-11-06] MEDS: BACLOFEN (10 MG) 10 MG TABLET PO SCH ×3 (09:00→16:27)
[2019-11-06] MEDS ORDERED: CARVEDILOL 3.125 MG TABLET PO SCH (09:00)
[2019-11-06] MEDS ORDERED: ASPIRIN EC 81 MG TABLET.DR PO SCH (09:00)
[2019-11-06] MEDS: GABAPENTIN 100 MG CAPSULE PO SCH ×2 (09:00→16:27)
[2019-11-06] MEDS: BENZTROPINE MESYLATE (2MG/2ML) 2 MG/2 ML AMPUL IM SCH (09:00)
--- NOTE | 2019-11-06 09:45 | NUR ---
RN NOTES DR JUAN A LORD REGARDING ABG RESULTS, ORDER RECEIVED FOR INTUBATION.
[2019-11-06] MEDS ORDERED: methylPREDNISolone SOD SUCC 125 MG/2ML VIAL IV SCH ×2 (10:00)
[2019-11-06 10:10] LABS: IRON, SERUM 18 ug/dl (50-175); TOTAL IRON BINDING CAPACITY 230 ug/dl (250-450)
[2019-11-06 10:14] LABS: FERRITIN 312 ng/mL (8-388)
--- NOTE | 2019-11-06 10:20 | NUR ---
RN NOTES OG TUBE AND MATA CATHETER INSERTED PER MD ORDER .
--- NOTE | 2019-11-06 10:20 | NUR ---
RN NOTES INTUBATION DONE BY ANESTHESIOLOGIST , STAT C-XRAY ORDER FOR ET TUBE PLACEMENT PER MD ORDER , CONTINUE TO MONITOR .
--- NOTE | 2019-11-06 10:25 | NUR ---
RT Pt was orally intubated with a 7.5 ET tube secured at 23cm at the lip line. Pt was immediately placed on mechanical ventilation with noted settings by Dr. Monroy. Equal bilateral chest rise noted, alarms set and audible. Pt appears to be more comfortable at this time. Addendum: 11/06/19 at 1416 by HIGINIO BROOKS RT Amended: Links added.
[2019-11-06] MEDS: DOPamine 400 MG in IV D5W 250 ML IV PRN ×2 (10:41→20:36)
[2019-11-06] MEDS: HYDROCORTISONE SOD SUCCINATE 100 MG/2 ML VIAL IV SCH ×3 (10:42→16:26)
--- NOTE | 2019-11-06 11:30 | NUR ---
ICU RELIEF CHARGE: PT MORE LETHARGIC. ASSESSED BY , ORDERS FOR STAT ABG RECEIVED (PH 7.147, PCO2 76.8, HCO3 26). RECEIVED ORDERS FOR STAT INTUBATION. NURSING TAPEMAN CALLED AND INFORMED. ANESTHESIOLOGIST IN ROUTE FOR INTUBATION. 1010-PT INTUBATED 7.5 23CM AT THE LIP. PLACED ON VENT SETTINGS ORDERED, CHEST XRAY AT BEDSIDE. 1130-POST INTUBATION ABG DONE, NOTIFIED. 1146-BASED ON CHEST XRAY AND MD ORDERS ET TUBE RETRACTED 3CM. ETT 7.5 20CM AT THE LIP.
[2019-11-06] MEDS ORDERED: IPRATROPIUM/ALBUTEROL INHALER IH SCH ×2 (12:00→14:00)
--- NOTE | 2019-11-06 12:05 | NUR ---
RT ET tube was retracted 3cm per Dr. Porfirio cross. ET tube is now at 20cm at the lip line. No SOB or respiratory distress noted. Addendum: 11/06/19 at 1416 by HIGINIO BROOKS RT Amended: Links added.
[2019-11-06] MEDS ORDERED: ETOMIDATE 2 MG/ML VIAL IV ONE (13:20)
[2019-11-06] MEDS ORDERED: ROCURONIUM BROMIDE 50 MG/5 ML IV ONE (13:20)
[2019-11-06] MEDS ORDERED: ALBUTEROL FS 2.5 MG/3 ML VIAL.NEB NEB SCH ×3 (13:30→19:30)
[2019-11-06] MEDS ORDERED: IPRATROPIUM NEB FS 0.5 MG/2.5 ML AMPUL.NEB NEB SCH (13:30)
[2019-11-06] MEDS: PROPOFOL 100 ML IV PRN ×2 (14:23→19:57)
[2019-11-06] MEDS ORDERED: ALBUTEROL SULFATE 8 GM HFA.AER.AD IH SCH (15:30)
[2019-11-06] MEDS: ALBUTEROL FS 2.5 MG/3 ML VIAL.NEB NEB SCH ×2 (16:00→19:30)
[2019-11-06 16:16] LABS: ABG BASE EXCESS -1.3 mmol/L; ABG OXYGEN SATURATION 97.3 % (92.0-98.5); ABG PCO2 39.9 mmHg (35.0-45.0); ABG PH 7.389 (7.350-7.450); ABG PO2 103.9 mmHg (75.0-100.0); AaDO2 424.6 mmHg; COHb 0.3 % (0.5-1.5); MetHb 0.4 % (0.0-1.5); O2Hb 96.6 % (94.0-97.0); PEEP,BG 5 cm H2O; SITE, ABG Right Radial; VT, ABG 450 mL
[2019-11-06] MEDS: RIVAROXABAN 10 MG TABLET PO SCH (16:27)
--- NOTE | 2019-11-06 16:29 | NUR ---
RT HHN tx not given at this time. Spoke with Dr. Monroy and he does not want to give nebulized tx to reduce risk of possible exposure. Talked to Dandy from Pharmacy. No SOB or respiratory distress noted at this time. Addendum: 11/06/19 at 1633 by HIGINIO BROOKS RT Amended: Links added.
--- NOTE | 2019-11-06 18:09 | NUR ---
RN NOTES PT REMAINS INTUBATED, AND SEDATED ,ON DIPRIVAN AT 35MCG/KG/MIN , DOPAMINE AT 5 MCG/KG/MIN , IVF AT 200 CC/HR RUNNING , PICC LINE NURSE AT THE BEDSIDE TO INSERT THE LINE AT HIS TIME . VSS STABLE, HR IN 70' , MATA DRAINING TO GRAVITY WITH CLOUDY , JASON COLOR URINE , SR UP x3, CALL LIGHT WITHIN EASY REACH,BED LOCKED AND IN LOWEST POSITION, WILL ENDORSE TO REVERSAL PRINT INSPECTOR NURSE FOR CONTINUITY OF CARE.
--- NOTE | 2019-11-06 19:30 | NUR ---
PLUG STITCHER OPENING NOTES, RECEIVED PATIENT INTUBATED, TOLERATING THE CURRANT VENT SETTING WELL, NO ACUTE DISTRESS NOTED. IV RFA #20, R TUMB #20 INTACT AND PATENT, AND ON KATHERINE PICC LINE RUNNING PROPOFOL 35 MCG/KG/MIN AND DOPAMINE @5MCG/KG/MIN. TOLERATING WELL. HR ON MONITOR IS 77. MATA CATH DRAINING TO GRAVITY CLOUDY JASON URINE. SIDE RAILS UP x3. BED IN LOW/LOCKED POSITION, WILL CONTINUE TO MONITOR.
[2019-11-06] MEDS: LATANOPROST EYE DROP 0.005% 2.5 ML BOTTLE OP SCH (22:13)
[2019-11-06] MEDS: SENNOSIDES 8.6 MG TABLET PO SCH (22:18)
[2019-11-07] VITALS (90 sets, daily range): BP systolic 82–136; BP diastolic 47–97
[2019-11-07] MEDS: CEFTRIAXONE 1 G in IV D5W 50 ML IV SCH (00:08)
[2019-11-07] MEDS: ALBUTEROL FS 2.5 MG/3 ML VIAL.NEB NEB SCH ×4 (01:22→19:30)
[2019-11-07] MEDS: PROPOFOL 100 ML IV PRN ×5 (02:11→23:05)
[2019-11-07 04:22] LABS: BASOPHILS % (AUTO) 0.4 % (0.0-2.0); HEMATOCRIT 33 % (39-51); HEMOGLOBIN 10.7 g/dL (13.5-17.5); LYMPHOCYTES # (AUTO) 0.6 /CMM (0.8-4.8); MEAN CORPUSCULAR HGB CONC 32 g/dl (31.0-36.0); MEAN CORPUSCULAR VOLUME 76 fL (80-96); MONOCYTES # (AUTO) 0.3 /CMM (0.1-1.30); MONOCYTES % (AUTO) 2.8 % (2.0-12.0); NEUTROPHILS # (AUTO) 10.7 /CMM (1.8-8.9); NEUTROPHILS % (AUTO) 91.8 % (43.0-81.0); PLATELET COUNT (AUTO) 155 /CMM (150-450); RED BLOOD CELL COUNT(AUTO) 4.36 MIL/uL (4.5-6.0); WHITE BLOOD COUNT (AUTO) 11.7 K/uL (4.3-11.0)
[2019-11-07 04:36] LABS: ALBUMIN 2.6 g/dL (3.4-5.0); BILIRUBIN,TOTAL 0.8 mg/dL (0.2-1.0); CALCIUM, SERUM 8.7 mg/dL (8.5-10.1); CREATININE 1.1 mg/dL (0.6-1.3); MAGNESIUM 1.7 mg/dL (1.8-2.4); PHOSPHORUS 3.2 mg/dL (2.5-4.9); POTASSIUM 4.3 mmol/L (3.5-5.1); TOTAL PROTEIN, SERUM 7.9 g/dL (6.4-8.2)
--- NOTE | 2019-11-07 06:57 | NUR ---
BIOFUELS RESEARCH SCIENTIST CLOSING NOTES, PATIENT INTUBATED, TOLERATING THE CURRANT VENT SETTING WELL, NO ACUTE DISTRESS NOTED. IV RFA #20, R TUMB #20 INTACT AND PATENT, AND ON KATHERINE PICC LINE RUNNING PROPOFOL 45 MCG/KG/MIN AND DOPAMINE @5MCG/KG/MIN. TOLERATING WELL. PATIENTS TEMP IN 98.9. HR ON MONITOR IS 75. MATA CATH DRAINING TO GRAVITY CLOUDY JASON URINE. PATIENT IS R/O COVID PENDING THE RESULTS. SIDE RAILS UP x2. BED IN LOW/LOCKED POSITION, WILL ENDORSE THE PATIENT TO AM RN FOR SUZAN.
--- NOTE | 2019-11-07 07:00 | NUR ---
RN NOTES RECEIVED PATIENT ON BED INTUBATED, SEDATED, TOLERATING THE CURRANT VENT SETTING WELL, NO ACUTE DISTRESS NOTED. IV RFA G 20, R THUMB G 20 AND R UPPER ARM PICC LINE SITE CLEAN, DRY AND INTACT, PROPOFOL AT 45 MCG/KG/MIN AND DOPAMINE @5MCG/KG/MIN RUNNING , HR IN 70'S , MATA CATH DRAINING TO GRAVITY CLOUDY JASON URINE. SIDE RAILS UP x3. BED IN LOW/LOCKED POSITION, WILL CONTINUE TO MONITOR.
--- NOTE | 2019-11-07 08:00 | NUR ---
RN NOTES MORNING MEDS HELD PER DR ORTEGA ORDER .
[2019-11-07] MEDS: HYDROCORTISONE SOD SUCCINATE 100 MG/2 ML VIAL IV SCH ×3 (08:38→16:18)
[2019-11-07] MEDS: ARIPIPRAZOLE 5 MG TABLET PO SCH (09:00)
[2019-11-07] MEDS: GABAPENTIN 100 MG CAPSULE PO SCH ×2 (09:00→16:17)
[2019-11-07] MEDS: DIVALPROEX SODIUM 125 MG TABLET.DR PO SCH (09:00)
[2019-11-07] MEDS: BACLOFEN (10 MG) 10 MG TABLET PO SCH ×3 (09:00→16:16)
[2019-11-07] MEDS: BENZTROPINE MESYLATE (2MG/2ML) 2 MG/2 ML AMPUL IM SCH (09:00)
--- NOTE | 2019-11-07 09:08 | NUR ---
RN NOTES NOTED PEA, MICHEL ROB INITIATED, PT IS ALREADY INTUBATED AND ON THE VENT , DR VELAZCO AT THE BEDSIDE FOR MICHEL ROB. SEE CODE BLUE RECORD SHEET. Addendum: 11/07/19 at 1130 by WHITLEY DONALDSON RN PLEASE DISREGARD ABOVE CHARTING , CHARTED ON A WRONG PT THANK YOU.
[2019-11-07] MEDS: DOPamine 400 MG in IV D5W 250 ML IV PRN (09:52)
[2019-11-07] MEDS: IV NS 0.9% 1,000 ML IV PRN ×2 (10:09→22:58)
[2019-11-07 10:47] LABS: ABG BASE EXCESS -1.9 mmol/L; ABG OXYGEN SATURATION 96.7 % (92.0-98.5); ABG PCO2 31.7 mmHg (35.0-45.0); ABG PH 7.447 (7.350-7.450); ABG PO2 91.3 mmHg (75.0-100.0); AaDO2 301.6 mmHg; COHb 0.1 % (0.5-1.5); MetHb 0.4 % (0.0-1.5); O2Hb 96.2 % (94.0-97.0); SITE, ABG Right Radial
[2019-11-07] MEDS: Magnesium 1GM/D5W 100ML PREMIX 100 ML IV SCH ×2 (11:52→13:09)
--- NOTE | 2019-11-07 12:00 | NUR ---
RN NOTES ORAL AND ETT SUCTIONING DONE , CONTINUE TO MONITOR
[2019-11-07] MEDS: SOD FERRIC GLUC 125 MG in IV NS 0.9% 100 ML IV SCH (14:34)
[2019-11-07] MEDS: RIVAROXABAN 10 MG TABLET PO SCH (16:17)
--- NOTE | 2019-11-07 16:45 | NUR ---
RN NOTES DR BUSTILLO NOTIFIED REGARDING EKG RESULTS AND PAUSES ON THE HEART RYTHEM . PT IS ASYMPTOMATIC , CONTINUE TO MONITOR .
--- NOTE | 2019-11-07 18:38 | NUR ---
RN NOTES PATIENT REMAINS INTUBATED, TOLERATING THE CURRANT VENT SETTING WELL, NO ACUTE DISTRESS NOTED. PROPOFOL AT 35 MCG/KG/MIN AND DOPAMINE @3MCG/KG/MIN. PT IS VERY SENSITIVE TO DOPAMIN , T= 96.5, WARM BLANKET APPLIED, HR IN 60'S ON MONITOR , MATA CATH DRAINING TO GRAVITY CLOUDY JASON URINE. PATIENT IS R/O COVID PENDING THE RESULTS. SIDE RAILS UP x3. CALL LIGHT WITHIN EASY REACH, BED LOCKED AND IN LOWEST POSITION, WILL ENDORSE TO CANDY SEPARATOR HARD NURSE FOR CONTINUITY OF CARE .
--- NOTE | 2019-11-07 19:30 | NUR ---
PYTHON PROGRAMMER OPENING NOTES RECEIVED PATIENT INTUBATED, TOLERATING THE CURRANT VENT SETTING WELL, NO ACUTE DISTRESS NOTED AT THIS TIME. PROPOFOL AT 35 MCG/KG/MIN AND DOPAMINE @3MCG/KG/MIN. PER DAY RN PATIENT IS VERY SENSITIVE TO DOPAMIN , T= 96.6, NOTED WARM BLANKET AND BEAR HUGGER ON PATIENT, HR IN 60'S ON BED SIDE MONITOR , MATA CATH DRAINING TO GRAVITY CLOUDY JASON URINE. PATIENT IS NEGATIVE COVID. SIDE RAILS UP x3. CALL LIGHT WITHIN EASY REACH, BED LOCKED AND IN LOWEST POSITION, WILL CONTINUE TO MONITOR THE PATIENT.
[2019-11-07] MEDS: LATANOPROST EYE DROP 0.005% 2.5 ML BOTTLE OP SCH (22:08)
[2019-11-07] MEDS: SENNOSIDES 8.6 MG TABLET PO SCH (22:10)
--- NOTE | 2019-11-07 22:15 | NUR ---
DUE TO PATIENT'S SENSITIVITY TO THE DOPAMIN DRIP INCREASED THE RATE OF DOPAMIN TO 5 FROM 3. VS 82/65 HR 86. WILL CONTINUE TO MONITOR. Addendum: 11/08/19 at 0216 by GRICEL TEJADA RN INCREASED THE DOPAMINE DRIP TO 5 FROM 3 ON 11-07-19 AR 5 DECREASED THE DOPAMINE DRIP TO 3 FROM 5 ON - AT 2300, VS 133/82 HR 92
[2019-11-08] VITALS (93 sets, daily range): BP systolic 86–142; BP diastolic 47–97
[2019-11-08] MEDS: CEFTRIAXONE 1 G in IV D5W 50 ML IV SCH (00:25)
[2019-11-08] MEDS: ALBUTEROL FS 2.5 MG/3 ML VIAL.NEB NEB SCH ×4 (01:30→19:45)
[2019-11-08 05:00] LABS: CALCIUM, SERUM 8.7 mg/dL (8.5-10.1); MAGNESIUM 2.2 mg/dL (1.8-2.4); POTASSIUM 3.4 mmol/L (3.5-5.1)
[2019-11-08] MEDS: PROPOFOL 100 ML IV PRN ×3 (05:51→15:36)
--- NOTE | 2019-11-08 07:06 | NUR ---
MUSSEL FARMER CLOSING NOTES PATIENT INTUBATED, TOLERATING THE CURRANT VENT SETTING WELL, NO ACUTE DISTRESS NOTED AT THIS TIME. PROPOFOL AT 30 MCG/KG/MIN AND DOPAMINE @3MCG/KG/MIN. PATIENT IS VERY SENSITIVE TO DOPAMINE DRIP INCREASE/DECREASE, T= 97.9, BEAR HUGGER HEATER ON MEDIUM TEMP TO PREVENT HYPOTHERMIA , HR IN 80'S ON BED SIDE MONITOR , MATA CATH DRAINING TO GRAVITY CLOUDY JASON URINE. SIDE RAILS UP x2. BED LOCKED AND IN LOWEST POSITION, WILL ENDORSE THE PATIENT TO AM RN FOR SUZAN.
[2019-11-08 07:58] LABS: ABG BASE EXCESS -2.3 mmol/L; ABG OXYGEN SATURATION 96.6 % (92.0-98.5); ABG PCO2 26.1 mmHg (35.0-45.0); ABG PH 7.499 (7.350-7.450); ABG PO2 92.6 mmHg (75.0-100.0); AaDO2 234.5 mmHg; COHb 0.3 % (0.5-1.5); MetHb 0.6 % (0.0-1.5); O2Hb 95.7 % (94.0-97.0); PEEP,BG 5 cm H2O; SITE, ABG Left Radial; VT, ABG 450 mL
[2019-11-08 08:05] LABS: BASOPHILS # (AUTO) 0.1 /CMM (0.0-0.2); BASOPHILS % (AUTO) 0.9 % (0.0-2.0); HEMATOCRIT 30 % (39-51); HEMOGLOBIN 9.7 g/dL (13.5-17.5); LYMPHOCYTES # (AUTO) 2.5 /CMM (0.8-4.8); LYMPHOCYTES % (AUTO) 33.4 % (20.0-44.0); MEAN CORPUSCULAR HGB CONC 32 g/dl (31.0-36.0); MEAN CORPUSCULAR VOLUME 75 fL (80-96); MONOCYTES # (AUTO) 0.3 /CMM (0.1-1.30); MONOCYTES % (AUTO) 3.7 % (2.0-12.0); NEUTROPHILS # (AUTO) 4.6 /CMM (1.8-8.9); PLATELET COUNT (AUTO) 152 /CMM (150-450); RED BLOOD CELL COUNT(AUTO) 3.99 MIL/uL (4.5-6.0); WHITE BLOOD COUNT (AUTO) 7.5 K/uL (4.3-11.0)
[2019-11-08] MEDS ORDERED: POTASSIUM CHLORIDE 20 MEQ POWDER PACKET NG SCH (08:30)
[2019-11-08] MEDS: HYDROCORTISONE SOD SUCCINATE 100 MG/2 ML VIAL IV SCH ×3 (09:15→18:11)
[2019-11-08 09:32] LABS: LYMPHOCYTES % (MANUAL) 8 % (16-48); MONOCYTES % (MANUAL) 6 % (0-11.0); NEUTROPHILS % (MANUAL) 86 (42-76)
[2019-11-08] MEDS: DOPamine 400 MG in IV D5W 250 ML IV PRN (09:35)
[2019-11-08] MEDS: GABAPENTIN 100 MG CAPSULE PO SCH ×2 (10:59→18:12)
[2019-11-08] MEDS: DIVALPROEX SODIUM 125 MG TABLET.DR PO SCH (11:01)
[2019-11-08] MEDS: ARIPIPRAZOLE 5 MG TABLET PO SCH (11:01)
[2019-11-08] MEDS: BENZTROPINE MESYLATE (2MG/2ML) 2 MG/2 ML AMPUL IM SCH (11:02)
[2019-11-08] MEDS: BACLOFEN (10 MG) 10 MG TABLET PO SCH ×3 (11:03→18:11)
--- NOTE | 2019-11-08 11:11 | NUR ---
DRAW TENDER NOTE CLARIFIED WITH DR ORTEGA REGARDING PATIENT AM MEDICATIONS THAT HAVE BEEN HELD, PER OK TO GIVE MEDICATIONS . WILL CONTINUE TO MONITOR.
[2019-11-08] MEDS: IV NS 0.9% 1,000 ML IV PRN (13:57)
[2019-11-08] MEDS: SOD FERRIC GLUC 125 MG in IV NS 0.9% 100 ML IV SCH (15:34)
[2019-11-08] MEDS ORDERED: LORAZEPAM INJ 2 MG/ML VIAL IV PRN (16:30)
[2019-11-08] MEDS ORDERED: MORPHINE SULFATE INJ 2 MG/ML DISP.SYRIN IV ONE (16:30)
[2019-11-08] MEDS: RIVAROXABAN 10 MG TABLET PO SCH (18:12)
--- NOTE | 2019-11-08 19:30 | NUR ---
RN OPENING NOTE RECEIVED PT WITH WITH HOB ELEVATED GEORGE HUGGER ON AT END OF SHIFT. PT NONVERBAL IN NO RESPIRATORY DISTRESS, TOLERATING CURRENT VENT SETTINGS AC 12, TV 450, FIO2 50%, PEEP 5. OGT PATENT, INTACT, IN PLACE, CLAMPED. PT CURRENT READING IS AFIB CONTROLLED. F/C PATENT, DRAINING BY GRAVITY. KEPT CLEAN AND DRY. MARLENE PICC LINE PATENT AND INTACT, DIPRIVAN AT 20MCG/KG/MIN AND DOPAMINE AT 2MCG/KG/MIN, AND NS INFUSING AT 40 ML/HR. SIDE RAILS UP X2 AND LOCKED. BED KEPT AT LOWEST POSITION. BILATERAL SOFT RESTRAINTS ON. WILL CONTINUE TO MONITOR PT
--- NOTE | 2019-11-08 19:45 | NUR ---
RT NOTE: RECEIVED PATIENT ON MECH VENT ON NOTED SETTINGS PER MD ORDER WITH 7.5 ETT SECURED AT 20CM AT THE LIP. ALARMS CHECKED AND AUDIBLE. CUFF PRESSURE DIGITAL ADVERTISING ANALYST. AMBU BAG AT [facility]. VENT PLUGGED INTO THE RED OUTLET. SUCTION DONE PRN. NO RESP DISTRESS NOTED. WILL CONT TO MONITOR PATIENT.
--- NOTE | 2019-11-08 19:45 | NUR ---
CHILD DEVELOPMENT TEACHER CLOSING NOTE ALL DUE MEDS GIVEN. GEORGE OLEGGER PLACED BACK ON WITH RECTAL TEMP 96.6 AT END OF SHIFT. NO RESPIRATORY DISTRESS NOTED, TOLERATING VENT SETTINGS AC 12, TV 450, FIO2 50%, PEEP 5. SUCTIONED NEEDED. OGT PATENT, INTACT, IN PLACE, CLAMPED. AFIB CONTROLLED. F/C PATENT, DRAINING BY GRAVITY. KEPT CLEAN AND DRY. TURNED AND REPOSITIONED Q2 AND PRN. HOB ELEVATED. MARLENE PICC LINE PATENT AND INTACT, DIPRIVAN AT 20MCG/KG/MIN AND DOPAMINE AT 2MCG/KG/MIN, AND IVF AT 40 ML/HR. SIDE RAILS UP AND LOCKED. BED KEPT AT LOWEST POSITION. BILATERAL SOFT RESTRAINTS IN PLACE. CONTINUITY OF CARE ENDORSED TO PM NURSE.
[2019-11-08] MEDS: LATANOPROST EYE DROP 0.005% 2.5 ML BOTTLE OP SCH (22:35)
[2019-11-08] MEDS: SENNOSIDES 8.6 MG TABLET PO SCH (22:36)
[2019-11-09] VITALS (93 sets, daily range): BP systolic 61–120; BP diastolic 47–95
[2019-11-09] MEDS: CEFTRIAXONE 1 G in IV D5W 50 ML IV SCH (00:08)
[2019-11-09] MEDS: ALBUTEROL FS 2.5 MG/3 ML VIAL.NEB NEB SCH ×4 (01:15→19:49)
[2019-11-09] MEDS: PROPOFOL 100 ML IV PRN ×2 (02:25→06:42)
[2019-11-09 04:28] LABS: BASOPHILS % (AUTO) 0.4 % (0.0-2.0); HEMATOCRIT 28 % (39-51); HEMOGLOBIN 9.3 g/dL (13.5-17.5); LYMPHOCYTES # (AUTO) 2.2 /CMM (0.8-4.8); LYMPHOCYTES % (AUTO) 37.6 % (20.0-44.0); MEAN CORPUSCULAR HGB CONC 33 g/dl (31.0-36.0); MEAN CORPUSCULAR VOLUME 75 fL (80-96); MONOCYTES # (AUTO) 0.2 /CMM (0.1-1.30); MONOCYTES % (AUTO) 3.5 % (2.0-12.0); NEUTROPHILS # (AUTO) 3.5 /CMM (1.8-8.9); NEUTROPHILS % (AUTO) 58.5 % (43.0-81.0); PLATELET COUNT (AUTO) 133 /CMM (150-450); RED BLOOD CELL COUNT(AUTO) 3.72 MIL/uL (4.5-6.0)
[2019-11-09 04:33] LABS: CALCIUM, SERUM 8.5 mg/dL (8.5-10.1); MAGNESIUM 2.1 mg/dL (1.8-2.4); POTASSIUM 3.6 mmol/L (3.5-5.1)
--- NOTE | 2019-11-09 06:50 | NUR ---
RN CLOSING NOTE PT CURRENTLY WITH WITH HOB ELEVATED. PT NONVERBAL IN NO RESPIRATORY DISTRESS DURING SHIFT, TOLERATING CURRENT VENT SETTINGS AC 12, TV 450, FIO2 50%, PEEP 5. OGT PATENT, INTACT AND CLAMPED. PT CURRENT READING IS AFIB CONTROLLED. MATA CATH PATENT, DRAINING BY GRAVITY. KEPT CLEAN AND DRY. MARLENE PICC LINE PATENT AND INTACT, DIPRIVAN AT 20MCG/KG/MIN AND DOPAMINE AT 1 MCG/KG/MIN, NS INFUSING AT 40 ML/HR. SIDE RAILS UP X2 AND LOCKED. ALL NEEDS MED BED KEPT AT LOWEST POSITION. BILATERAL SOFT RESTRAINTS ON. ENDORSED TO AM RN FOR SUZAN
--- NOTE | 2019-11-09 07:50 | NUR ---
ELECTRONICS TECHNICIAN APPRENTICE NOTE WEANING TRIALS INITIATED WITH VENT SETTINGS SIMV 4 PSV 15, FIO2 40%, PEEP 5 WILL CONTINUE TO MONITOR.
[2019-11-09] MEDS: HYDROCORTISONE SOD SUCCINATE 100 MG/2 ML VIAL IV SCH ×3 (08:34→17:12)
[2019-11-09] MEDS: DIVALPROEX SODIUM 125 MG TABLET.DR PO SCH (08:34)
[2019-11-09] MEDS: ARIPIPRAZOLE 5 MG TABLET PO SCH (08:34)
[2019-11-09] MEDS: BACLOFEN (10 MG) 10 MG TABLET PO SCH ×3 (08:34→17:14)
[2019-11-09] MEDS: GABAPENTIN 100 MG CAPSULE PO SCH ×2 (08:34→17:14)
[2019-11-09] MEDS: BENZTROPINE MESYLATE (2MG/2ML) 2 MG/2 ML AMPUL IM SCH (08:36)
[2019-11-09 08:55] LABS: ABG BASE EXCESS -3.6 mmol/L; ABG OXYGEN SATURATION 96.1 % (92.0-98.5); ABG PCO2 27.3 mmHg (35.0-45.0); ABG PH 7.465 (7.350-7.450); ABG PO2 90.4 mmHg (75.0-100.0); AaDO2 163.4 mmHg; COHb 0.3 % (0.5-1.5); MetHb 0.6 % (0.0-1.5); O2Hb 95.2 % (94.0-97.0); PEEP,BG 5 cm H2O; SITE, ABG Left Radial; VENT MODE, BG SIMV PS 15
[2019-11-09] MEDS: DOPamine 400 MG in IV D5W 250 ML IV PRN (12:34)
--- NOTE | 2019-11-09 12:40 | NUR ---
APPLE TURNER NOTE DR VELAZCO AT BEDSIDE, PATIENT IS MORE AWAKE AND FOLLOWS SIMPLE COMMANDS. RECEIVED ORDERS TO EXTUBATE, OK FOR ICE CHIPS AND IF TOLERATED OK TO ADVANCE DIET TOLERATED
--- NOTE | 2019-11-09 12:56 | NUR ---
DATA MANAGEMENT CONSULTANT NOTE PATIENT EXTUBATED, PLACED ON 3LPM O2 VIA NC TOLERATED WELL, TOLERATES ICE CHIPS.
[2019-11-09] MEDS ORDERED: DC PROPOFOL WHEN EXTUBATED XX PRN (13:00)
[2019-11-09] MEDS: IV NS 0.9% 1,000 ML IV PRN (14:23)
[2019-11-09] MEDS: SOD FERRIC GLUC 125 MG in IV NS 0.9% 100 ML IV SCH (14:23)
[2019-11-09] MEDS: RIVAROXABAN 10 MG TABLET PO SCH (17:13)
--- NOTE | 2019-11-09 19:56 | NUR ---
SAND CONDITIONER MACHINE CLOSING NOTE PATIENT TOLERATED PUREED DIET. AT 75% OF DINNER, ASPIRATION PRECAUTIONS OBSERVED. PATIENT ON 1LPMO2 VIA NC TOLERATING WELL. S/P EXTUBATION TODAY. NO DISTRESS NOTED. F/C PATENT AND INTACT, DRAINING BY GRAVITY. F/C PATENT, DRAINING BY GRAVITY. WITH MARLENE PICC LINE DOPAMINE AT 1.5 MCG/KG/MIN AND IVF RUNNING. ALL DUE MEDS GIVEN. KEPT CLEAN AND DRY. TURNED AND REPOSITIONED Q2 AND PRN. HOB ELEVATED. SIDE RAILS UP AND LOCKED. BED KEPT AT LOWEST POSITION. CALL LIGHT KEPT WITHIN EASY REACH. CONTINUITY OF CARE ENDORSED TO PM NURSE.
[2019-11-09] MEDS: SENNOSIDES 8.6 MG TABLET PO SCH (21:07)
[2019-11-09] MEDS: LATANOPROST EYE DROP 0.005% 2.5 ML BOTTLE OP SCH (21:12)
[2019-11-10] VITALS (83 sets, daily range): BP systolic 78–154; BP diastolic 47–99
[2019-11-10] MEDS: CEFTRIAXONE 1 G in IV D5W 50 ML IV SCH ×2 (00:48→23:52)
[2019-11-10] MEDS: ALBUTEROL FS 2.5 MG/3 ML VIAL.NEB NEB SCH ×4 (01:20→19:43)
[2019-11-10 05:01] LABS: BASOPHILS % (AUTO) 0.8 % (0.0-2.0); HEMATOCRIT 31 % (39-51); HEMOGLOBIN 10.2 g/dL (13.5-17.5); LYMPHOCYTES # (AUTO) 2.1 /CMM (0.8-4.8); LYMPHOCYTES % (AUTO) 34.2 % (20.0-44.0); MEAN CORPUSCULAR HGB CONC 32 g/dl (31.0-36.0); MEAN CORPUSCULAR VOLUME 76 fL (80-96); MONOCYTES # (AUTO) 0.3 /CMM (0.1-1.30); MONOCYTES % (AUTO) 4.5 % (2.0-12.0); NEUTROPHILS # (AUTO) 3.7 /CMM (1.8-8.9); NEUTROPHILS % (AUTO) 60.5 % (43.0-81.0); PLATELET COUNT (AUTO) 142 /CMM (150-450); RED BLOOD CELL COUNT(AUTO) 4.14 MIL/uL (4.5-6.0); WHITE BLOOD COUNT (AUTO) 6.1 K/uL (4.3-11.0)
[2019-11-10 05:16] LABS: CALCIUM, SERUM 8.7 mg/dL (8.5-10.1); CREATININE 0.9 mg/dL (0.6-1.3); MAGNESIUM 2.2 mg/dL (1.8-2.4); PHOSPHORUS 3.4 mg/dL (2.5-4.9); POTASSIUM 3.5 mmol/L (3.5-5.1)
--- NOTE | 2019-11-10 07:35 | NUR ---
RN NOTES NO SIGNIFICANT CHANGE OF CONDITION ALERT WITH CONFUSION. ON DOPA DRIP AT 1.5, TOLERATING WELL. BP KEPT AT WNL. NO PHYSICAL MANIFESTATION OF PAIN OR DISCOMFORT. KEPT CLEAN AND DRY.
--- NOTE | 2019-11-10 08:40 | NUR ---
received pt from supply person, alert, follow simple commands, A fib controlled, 2L 02 sat well, on dopamine at 2mcg, f/c low output, tolerates diet, v/s stable, no pain, pt turned and repositioned.
[2019-11-10] MEDS: GABAPENTIN 100 MG CAPSULE PO SCH ×2 (09:34→16:12)
[2019-11-10] MEDS: ARIPIPRAZOLE 5 MG TABLET PO SCH (09:34)
[2019-11-10] MEDS: DIVALPROEX SODIUM 125 MG TABLET.DR PO SCH (09:34)
[2019-11-10] MEDS: BACLOFEN (10 MG) 10 MG TABLET PO SCH ×3 (09:34→16:12)
[2019-11-10] MEDS: HYDROCORTISONE SOD SUCCINATE 100 MG/2 ML VIAL IV SCH (09:34)
[2019-11-10] MEDS: BENZTROPINE MESYLATE (2MG/2ML) 2 MG/2 ML AMPUL IM SCH (09:38)
[2019-11-10] MEDS: SOD FERRIC GLUC 125 MG in IV NS 0.9% 100 ML IV SCH (14:30)
[2019-11-10] MEDS: RIVAROXABAN 10 MG TABLET PO SCH (16:12)
--- NOTE | 2019-11-10 16:41 | NUR ---
pt is resting in the bed, alert, follow simple commands, A fib controlled, on 2L 02 sat well, on dopamine at 3mcg, tolerates diet, v/s stable, no pain, pt cleaned, changed and repositioned.
--- NOTE | 2019-11-10 19:30 | NUR ---
INNER TUBE TUBER MACHINE OPERATOR: RECEIVED PT WT EYES CLOSED, ABLE TO OPEN EYES AND FOLLOW SIMPLE COMMANDS. ON 2L 02 VIA NC WT O2 SAT 92% AND ABOVE. CONTROLLED A. FIB ON CHECKERING MACHINE ADJUSTER. CONTINUE ON DOPAMINE DRIP AT 4MCG/KG/MIN FOR BP SUPPORT AND NS AT 40ML/HR. NO S/S OF MARLENE PICC LINE COMPLICATIONS. AFEBRILE. F/C PATENT AND INTACT DRAINING CLOUDY URINE TO GRAVITY. HOB AT 35 DEGREES. BED IN LOWEST POSITION AND LOCKED, BED ALARM ACTIVATED, SIDE RAILS UP X 2 AND CALL LIGHT WITHIN REACH. WILL CONTINUE TO MONITOR.
[2019-11-10] MEDS: IV NS 0.9% 1,000 ML IV PRN (19:54)
[2019-11-10] MEDS: SENNOSIDES 8.6 MG TABLET PO SCH (21:29)
[2019-11-10] MEDS: LATANOPROST EYE DROP 0.005% 2.5 ML BOTTLE OP SCH (21:30)
[2019-11-11] VITALS (88 sets, daily range): BP systolic 81–146; BP diastolic 42–100
[2019-11-11] MEDS: ALBUTEROL FS 2.5 MG/3 ML VIAL.NEB NEB SCH ×4 (01:45→19:49)
[2019-11-11] MEDS: DOPamine 400 MG in IV D5W 250 ML IV PRN (03:28)
[2019-11-11 05:39] LABS: BASOPHILS % (AUTO) 0.6 % (0.0-2.0); EOSINOPHILS % (AUTO) 1.6 % (0.0-6.0); HEMATOCRIT 31 % (39-51); LYMPHOCYTES # (AUTO) 2.4 /CMM (0.8-4.8); LYMPHOCYTES % (AUTO) 30.9 % (20.0-44.0); MEAN CORPUSCULAR HGB CONC 32 g/dl (31.0-36.0); MEAN CORPUSCULAR VOLUME 75 fL (80-96); MONOCYTES # (AUTO) 0.5 /CMM (0.1-1.30); NEUTROPHILS # (AUTO) 4.6 /CMM (1.8-8.9); NEUTROPHILS % (AUTO) 59.9 % (43.0-81.0); PLATELET COUNT (AUTO) 125 /CMM (150-450); RED BLOOD CELL COUNT(AUTO) 4.12 MIL/uL (4.5-6.0); WHITE BLOOD COUNT (AUTO) 7.8 K/uL (4.3-11.0)
[2019-11-11 05:48] LABS: CALCIUM, SERUM 8.9 mg/dL (8.5-10.1); CREATININE 0.8 mg/dL (0.6-1.3); MAGNESIUM 2.1 mg/dL (1.8-2.4); PHOSPHORUS 2.6 mg/dL (2.5-4.9); POTASSIUM 3.4 mmol/L (3.5-5.1)
--- NOTE | 2019-11-11 06:30 | NUR ---
STORE CONSULTANT: NO SUZAN DURING THE SHIFT. ALERT AND AWAKE WT CONFUSION. ABLE TO FOLLOW SIMPLE COMMANDS. STILL ON DOPAMINE DRIP AT 3MCG/KG/MIN AND NS AT 40ML/HR. ALL NEEDS MET. SAFETY PRECAUTION NOTED.
--- NOTE | 2019-11-11 08:00 | NUR ---
received pt from cnc machinist 2nd shift, alert, follows simple commands, A fib controlled, on 2L 02 sat well, tolerates diet, f/c good output, on dopamine at 3mcg, v/s stable, no pain, temp 96.2 pt on prerna quev[place], pt turned and repositioned.
[2019-11-11] MEDS ORDERED: POTASSIUM CHLORIDE 20 MEQ TAB.PRT.SR PO SCH (09:00)
[2019-11-11] MEDS: ARIPIPRAZOLE 5 MG TABLET PO SCH (09:03)
[2019-11-11] MEDS: GABAPENTIN 100 MG CAPSULE PO SCH ×2 (09:03→16:42)
[2019-11-11] MEDS: DIVALPROEX SODIUM 125 MG TABLET.DR PO SCH (09:03)
[2019-11-11] MEDS: BACLOFEN (10 MG) 10 MG TABLET PO SCH ×3 (09:03→16:41)
[2019-11-11] MEDS: HYDROCORTISONE SOD SUCCINATE 100 MG/2 ML VIAL IV SCH (09:03)
[2019-11-11] MEDS: BENZTROPINE MESYLATE (2MG/2ML) 2 MG/2 ML AMPUL IM SCH (09:04)
[2019-11-11] MEDS: POTASSIUM CHLORIDE 20 MEQ POWDER PACKET PO SCH ×3 (09:16→11:40)
[2019-11-11] MEDS ORDERED: POTASSIUM CHLORIDE 20 MEQ TAB.PRT.SR PO ONE (09:30)
[2019-11-11 12:59] LABS: EOSINOPHILS % (MANUAL) 3 % (0-4); LYMPHOCYTES % (MANUAL) 14 % (16-48); MONOCYTES % (MANUAL) 12 % (0-11.0); MYELOCYTES % 1 % (0-0); NEUTROPHILS % (MANUAL) 69 (42-76); REACTIVE LYMPHOCYTES 1 % (0-0)
[2019-11-11] MEDS: SOD FERRIC GLUC 125 MG in IV NS 0.9% 100 ML IV SCH (13:26)
--- NOTE | 2019-11-11 16:30 | NUR ---
pt is resting in the bed, alert, follows commands, A fib controlled, on dopamine at 4mcg, v/s stable, no pain, pt cleaned, changed and repositioned.
[2019-11-11] MEDS: RIVAROXABAN 10 MG TABLET PO SCH (16:42)
--- NOTE | 2019-11-11 20:00 | NUR ---
Received patient awake,alert oriented x1-2.Follows simple commands.Respiration even and unlabored.With O2 2L NC saturation 100%.Afib controlled with Dopamine gtt infusing at 4mcg/kg/min will titrate accordingly.Infusing to MARLENE PICC Line and site intact.Denies chest pain or sob.FC to gravity.Turned and repositioned.Call light at bedside.COVID 19 negative.
[2019-11-11] MEDS: SENNOSIDES 8.6 MG TABLET PO SCH (21:24)
[2019-11-11] MEDS: LATANOPROST EYE DROP 0.005% 2.5 ML BOTTLE OP SCH (21:24)
[2019-11-11] MEDS: CEFTRIAXONE 1 G in IV D5W 50 ML IV SCH (23:55)
[2019-11-12] VITALS (105 sets, daily range): BP systolic 52–139; BP diastolic 31–102
[2019-11-12] MEDS: ALBUTEROL FS 2.5 MG/3 ML VIAL.NEB NEB SCH ×4 (01:38→19:47)
[2019-11-12] MEDS: DOPamine 400 MG in IV D5W 250 ML IV PRN (02:10)
--- NOTE | 2019-11-12 04:00 | NUR ---
Patient awake alert.VS stable.Hygienic measures done.Turned and repositioned.Verbalized he is hungry spoon fed with apple sauce well tolerated.
[2019-11-12 05:13] LABS: CALCIUM, SERUM 8.5 mg/dL (8.5-10.1); CREATININE 0.8 mg/dL (0.6-1.3); PHOSPHORUS 2.2 mg/dL (2.5-4.9); POTASSIUM 3.5 mmol/L (3.5-5.1)
--- NOTE | 2019-11-12 07:30 | NUR ---
TECHNICAL APPLICATIONS SPECIALIST INITIAL NOTE RECEIVED PATIENT ALERT TO SELF, ABLE TO MAKE NEEDS KNOWN. FORGETFUL, CONFUSED. COOPERATIVE. DENIES OF PAIN OR DISCOMFORT. DENIES SOB, ON 2LPMO2 VIA NC. ON TELE MONITOR AFIB. F/C PATENT AND INTACT, DRAINING BY GRAVITY. MARLENE PICC LINE PATENT AND INTACT. HOB ELEVATED. SIDE RAILS UP AND LOCKED. BED KEPT AT LOWEST POSITION. CALL LIGHT KEPT WITHIN EASY REACH. WILL CONTINUE TO MONITOR.
[2019-11-12] MEDS ORDERED: POTASSIUM PHOSPHATE MM 15 MMOL in IV NS 0.9% 250 ML IV SCH (08:00)
[2019-11-12] MEDS: ARIPIPRAZOLE 5 MG TABLET PO SCH (08:01)
[2019-11-12] MEDS: BENZTROPINE MESYLATE (2MG/2ML) 2 MG/2 ML AMPUL IM SCH (08:01)
[2019-11-12] MEDS: DIVALPROEX SODIUM 125 MG TABLET.DR PO SCH (08:01)
[2019-11-12] MEDS: GABAPENTIN 100 MG CAPSULE PO SCH ×2 (08:01→17:39)
[2019-11-12] MEDS: BACLOFEN (10 MG) 10 MG TABLET PO SCH ×3 (08:01→17:40)
[2019-11-12] MEDS ORDERED: HYDROCORTISONE SOD SUCCINATE 100 MG/2 ML VIAL IV SCH (09:00)
[2019-11-12] MEDS: RIVAROXABAN 10 MG TABLET PO SCH (17:40)
--- NOTE | 2019-11-12 19:49 | NUR ---
TRANSVERSE ABDOMINAL MUSCLE SURGEON CLOSING NOTE NO SIGNIFICANT CHANGE. ON ROOM AIR, SPO2 97%. ALL DUE MEDS GIVEN. WITH GOOD APPETITE. KEPT CLEAN AND DRY. TURNED AND REPOSITIONED Q2 AND PRN. MARLENE PICC LINE IN PLACE, DOPAMINE AT 1 MCG/KG/MIN. F/C DRAINING BY GRAVITY. HOB ELEVATED. SIDE RAILS UP AND LOCKED. CALL LIGHT KEPT WITHIN EASY REACH. CONTINUITY OF CARE ENDORSED TO PM NURSE.
[2019-11-12] MEDS: LATANOPROST EYE DROP 0.005% 2.5 ML BOTTLE OP SCH (22:24)
[2019-11-12] MEDS: SENNOSIDES 8.6 MG TABLET PO SCH (22:24)
[2019-11-13] VITALS (55 sets, daily range): BP systolic 50–154; BP diastolic 27–106
[2019-11-13] MEDS: CEFTRIAXONE 1 G in IV D5W 50 ML IV SCH (00:37)
[2019-11-13] MEDS: ALBUTEROL FS 2.5 MG/3 ML VIAL.NEB NEB SCH ×4 (02:00→19:55)
[2019-11-13 04:50] LABS: BASOPHILS % (AUTO) 0.4 % (0.0-2.0); EOSINOPHILS % (AUTO) 4.6 % (0.0-6.0); HEMATOCRIT 28 % (39-51); HEMOGLOBIN 9.2 g/dL (13.5-17.5); LYMPHOCYTES % (AUTO) 36.2 % (20.0-44.0); MEAN CORPUSCULAR HGB CONC 33 g/dl (31.0-36.0); MEAN CORPUSCULAR VOLUME 76 fL (80-96); MONOCYTES # (AUTO) 0.3 /CMM (0.1-1.30); NEUTROPHILS # (AUTO) 2.9 /CMM (1.8-8.9); NEUTROPHILS % (AUTO) 52.8 % (43.0-81.0); PLATELET COUNT (AUTO) 94 /CMM (150-450); RED BLOOD CELL COUNT(AUTO) 3.64 MIL/uL (4.5-6.0); WHITE BLOOD COUNT (AUTO) 5.5 K/uL (4.3-11.0)
[2019-11-13 04:59] LABS: CALCIUM, SERUM 8.5 mg/dL (8.5-10.1); CREATININE 0.8 mg/dL (0.6-1.3); MAGNESIUM 1.7 mg/dL (1.8-2.4); PHOSPHORUS 2.1 mg/dL (2.5-4.9); POTASSIUM 3.6 mmol/L (3.5-5.1)
[2019-11-13 06:04] LABS: LYMPHOCYTES % (MANUAL) 30 % (16-48); MONOCYTES % (MANUAL) 4 % (0-11.0); NEUTROPHILS % (MANUAL) 63 (42-76)
[2019-11-13 06:05] LABS: EOSINOPHILS % (MANUAL) 3 % (0-4)
--- NOTE | 2019-11-13 07:30 | NUR ---
TIME CLOCK INSPECTOR INITIAL NOTE RECEIVED PATIENT ALERT TO SELF, CONFUSED. COOPERATIVE. NO DISTRESS NOTED ON ROOM AIR. SKIN WARM AND DRY TO TOUCH. F/C DRAINING BY GRAVITY. ON TELE MONITOR AFIB CONTROLLED. SIDE RAILS UP AND LOCKED. HOB ELEVATED. WILL CONTINUE TO MONITOR.
[2019-11-13] MEDS: DIVALPROEX SODIUM 125 MG TABLET.DR PO SCH (08:23)
[2019-11-13] MEDS: BACLOFEN (10 MG) 10 MG TABLET PO SCH ×3 (08:23→16:38)
[2019-11-13] MEDS: GABAPENTIN 100 MG CAPSULE PO SCH ×2 (08:23→16:38)
[2019-11-13] MEDS: ARIPIPRAZOLE 5 MG TABLET PO SCH (08:23)
[2019-11-13] MEDS: BENZTROPINE MESYLATE (2MG/2ML) 2 MG/2 ML AMPUL IM SCH (09:18)
[2019-11-13] MEDS: Magnesium 1GM/D5W 100ML PREMIX 100 ML IV SCH ×2 (09:18→10:25)
--- NOTE | 2019-11-13 10:00 | NUR ---
CHRISTMAS TREE FARM WORKER NOTE SEEN AND EXAMINED BY DR ORTEGA, RELAYED PATIENT PLATELETS TRENDING DOWN. PER MD OK TO CONTINUE WITH XARELTO. NO S/S OF BLEEDING NOTE. WILL CONTINUE TO MONITOR.
[2019-11-13] MEDS ORDERED: K PHOS NEUTRAL 250 MG TABLET PO ONE (12:00)
--- NOTE | 2019-11-13 12:24 | NUR ---
WAISTBAND SETTER NOTE PATIENT BEING TRANSFERRED TO [address] [place] [address] VIA BED, REPORT GIVEN TO CHANCE
--- NOTE | 2019-11-13 12:56 | NUR ---
MS/arnp Patient received from ICU. Alert to self only, room air saturation 95%. Suction set up due to congestion and need for frequent suctioning. Heplock and triple lumen catheter flushing well with normal saline. Skin intact, bruising noted only. Tele monitor showing a-fib, rate controlled. Safety measures in place, bed alarm switched on, side rails X in upright position, call light within reach. Will continue to monitor and ensure safety. Patient is hard of hearing, can hear better from right ear. No hearing aids upon transfer.
--- NOTE | 2019-11-13 12:58 | NUR ---
WELDING MACHINE OPERATOR ELECTRON BEAM NOTE PATIENT TRANSFERRED VIA BED TO ROOM 324-2 IN STABLE CONDITION. ALL BELONGINGS WITH PATIENT.
--- NOTE | 2019-11-13 15:51 | NUR ---
MS/RN Rounds Patient remains in stable condition, appears comfortable, in no distress.
[2019-11-13] MEDS: RIVAROXABAN 10 MG TABLET PO SCH (16:39)
--- NOTE | 2019-11-13 18:08 | NUR ---
MS/RN End note Saturation on 4l oxygen via nasal cannula 94%, blood pressure now 124/69. Requires frequent deep suctioning due to moderate amount of thick secretions. Denies pain or discomfort. All medications adminsitered crushed with apple sauce, requires assistance with all meals. Skin kept clean and dry, has been turned and repositioned as condition allows. Bed in low setting, side rails X3 in upright position, call light within reach. Will endorse to material handler 2nd shift.
--- NOTE | 2019-11-13 20:01 | NUR ---
MS/TELE/RN RECEIVED PATIENT AWAKE, ALERT AND ORIENTED TO SELF, COMFORTABLE, NO C/O PAIN, NO DISTRESS NOTED, CALL LIGHT IN REACH, FALL PRECAUTIONS PER PROTOCOL, WILL MONITOR.
[2019-11-13] MEDS: SENNOSIDES 8.6 MG TABLET PO SCH (22:28)
[2019-11-13] MEDS: LATANOPROST EYE DROP 0.005% 2.5 ML BOTTLE OP SCH (22:29)
[2019-11-14] VITALS: BP 144/63
[2019-11-14] MEDS: ALBUTEROL FS 2.5 MG/3 ML VIAL.NEB NEB SCH ×4 (01:45→20:18)
[2019-11-14 04:01] VITALS: BP 123/71
--- NOTE | 2019-11-14 06:15 | NUR ---
MS/TELE/RN PATIENT IS AWAKE, ALERT, COMFORTABLE, NO SIGNS OF DISTRESS NOTED, CALL LIGHT IN REACH. WILL CONTINUE TO MONITOR.
--- NOTE | 2019-11-14 07:45 | NUR ---
TELE/RN OPENING NOTES RECEIVED PATIENT IN BED, AWAKE, ALERT AND ORIENTED. PATIENT ON NASAL CANNULA 3L, NO SIGNS OF RESPIRATORY DISTRESS, NO SIGNS OF SOB, AND WITH EVEN NON-LABORED BREATHING. IV ACCESS INTACT, IN PLACE, AND PATENT. ON DATA PROGRAMMER AFIB 66.SAFETY PRECAUTIONS IN PLACE WITH BED IN THE LOWEST POSITION, BILATERAL SIDE RAILS UP, BED LOCKED, AND CALL LIGHT WITHIN EASY REACH OF THE PATIENT. WILL CONTINUE TO MONITOR.
[2019-11-14 08:00] VITALS: BP 126/90
[2019-11-14] MEDS: GABAPENTIN 100 MG CAPSULE PO SCH ×2 (09:28→16:56)
[2019-11-14] MEDS: ARIPIPRAZOLE 5 MG TABLET PO SCH (09:28)
[2019-11-14] MEDS: DIVALPROEX SODIUM 125 MG TABLET.DR PO SCH (09:28)
[2019-11-14] MEDS: BACLOFEN (10 MG) 10 MG TABLET PO SCH ×3 (09:28→16:56)
[2019-11-14] MEDS: BENZTROPINE MESYLATE (2MG/2ML) 2 MG/2 ML AMPUL IM SCH (10:14)
[2019-11-14 10:34] LABS: ABG BASE EXCESS -1.7 mmol/L; ABG OXYGEN SATURATION 91.7 % (92.0-98.5); ABG PCO2 41.1 mmHg (35.0-45.0); ABG PH 7.374 (7.350-7.450); ABG PO2 67.5 mmHg (75.0-100.0); AaDO2 98.1 mmHg; MetHb 0.6 % (0.0-1.5); O2Hb 90.2 % (94.0-97.0); SITE, ABG Right Brachial
[2019-11-14 12:00] VITALS: BP 111/81
[2019-11-14 16:00] VITALS: BP 131/83
[2019-11-14] MEDS: RIVAROXABAN 10 MG TABLET PO SCH (17:08)
[2019-11-14 18:37] LABS: MONOCYTES # (AUTO) 0.4 /CMM (0.1-1.30); NEUTROPHILS # (AUTO) 4.1 /CMM (1.8-8.9)
[2019-11-14 18:42] LABS: HEMOGLOBIN 9.8 g/dL (13.5-17.5); PLATELET COUNT (AUTO) 126 /CMM (150-450)
[2019-11-14 18:44] LABS: CALCIUM, SERUM 8.4 mg/dL (8.5-10.1); CREATININE 0.7 mg/dL (0.6-1.3); PHOSPHORUS 2.2 mg/dL (2.5-4.9); POTASSIUM 3.8 mmol/L (3.5-5.1)
[2019-11-14 18:51] LABS: BASOPHILS % (AUTO) 0.3 % (0.0-2.0); HEMATOCRIT 30 % (39-51); LYMPHOCYTES # (AUTO) 1.8 /CMM (0.8-4.8); LYMPHOCYTES % (AUTO) 26.8 % (20.0-44.0); MEAN CORPUSCULAR HGB CONC 32 g/dl (31.0-36.0); MEAN CORPUSCULAR VOLUME 77 fL (80-96); MONOCYTES % (AUTO) 5.9 % (2.0-12.0); RED BLOOD CELL COUNT(AUTO) 3.92 MIL/uL (4.5-6.0); WHITE BLOOD COUNT (AUTO) 6.5 K/uL (4.3-11.0)
--- NOTE | 2019-11-14 18:53 | NUR ---
MS/RN CLOSING NOTES PATIENT IN BED, AWAKE, ALERT AND ORIENTED. PATIENT ON NASAL CANNULA 3L, NO SIGNS OF RESPIRATORY DISTRESS, NO SIGNS OF SOB, AND WITH EVEN NON-LABORED BREATHING. IV ACCESS INTACT, IN PLACE, AND PATENT. SEEN AND EXAMINED BY MD WITH ORDERS MADE AND CARRIED OUT. ALL DUE MEDS WAS GIVEN. SAFETY PRECAUTIONS IN PLACE WITH BED IN THE LOWEST POSITION, BILATERAL SIDE RAILS UP, BED LOCKED, AND CALL LIGHT WITHIN EASY REACH OF THE PATIENT. WILL ENDORSED TO PESTICIDE APPLICATOR FOR SUZAN.
[2019-11-14 20:06] VITALS: BP 121/72
[2019-11-14] MEDS: SENNOSIDES 8.6 MG TABLET PO SCH (23:08)
[2019-11-14] MEDS: LATANOPROST EYE DROP 0.005% 2.5 ML BOTTLE OP SCH (23:11)
--- NOTE | 2019-11-14 23:36 | NUR ---
MS/TELE/RN AT INITIAL ROUND AT 1930, PATIENT WAS ON BED AWAKE, ALERT, ORIENTED, COMFORTABLE, NO C/O PAIN, NO DISTRESS NOTED, CALL LIGHT IN REACH, FALL PRECAUTION. WILL MONITOR.
[2019-11-15] MEDS: ALBUTEROL FS 2.5 MG/3 ML VIAL.NEB NEB SCH ×3 (02:23→13:36)
--- NOTE | 2019-11-15 06:24 | NUR ---
MS/TELE/RN PATIENT IS SLEEPING AT THIS TIME, APPEAR COMFORTABLE, NO SIGNS OF DISTRESS NOTED, CALL LIGHT IN REACH. ALL NEEDS ATTENDED AT THIS TIME, WILL CONTINUE TO MONITOR.
[2019-11-15 08:00] VITALS: BP 130/87
--- NOTE | 2019-11-15 08:00 | NUR ---
MS/RN OPENING NOTES RECEIVED PATIENT IN BED, AWAKE, ALERT AND ORIENTED X2.HARD OF HEARING. PATIENT ON NASAL CANNULA 3L, NO SIGNS OF RESPIRATORY DISTRESS, NO SIGNS OF SOB, AND WITH EVEN NON-LABORED BREATHING. IV ACCESS INTACT, IN PLACE, AND PATENT. SAFETY PRECAUTIONS IN PLACE WITH BED IN THE LOWEST POSITION, BILATERAL SIDE RAILS UP, BED LOCKED, AND CALL LIGHT WITHIN EASY REACH OF THE PATIENT. WILL CONTINUE TO MONITOR.
[2019-11-15 08:41] LABS: BASOPHILS % (AUTO) 0.6 % (0.0-2.0); EOSINOPHILS % (AUTO) 5.8 % (0.0-6.0); HEMATOCRIT 30 % (39-51); HEMOGLOBIN 9.6 g/dL (13.5-17.5); LYMPHOCYTES % (AUTO) 16.6 % (20.0-44.0); MEAN CORPUSCULAR HGB CONC 32 g/dl (31.0-36.0); MEAN CORPUSCULAR VOLUME 77 fL (80-96); MONOCYTES # (AUTO) 0.5 /CMM (0.1-1.30); MONOCYTES % (AUTO) 8.3 % (2.0-12.0); NEUTROPHILS # (AUTO) 4.3 /CMM (1.8-8.9); NEUTROPHILS % (AUTO) 68.7 % (43.0-81.0); PLATELET COUNT (AUTO) 130 /CMM (150-450); RED BLOOD CELL COUNT(AUTO) 3.89 MIL/uL (4.5-6.0); WHITE BLOOD COUNT (AUTO) 6.2 K/uL (4.3-11.0)
[2019-11-15 09:03] LABS: CALCIUM, SERUM 8.8 mg/dL (8.5-10.1); CREATININE 0.6 mg/dL (0.6-1.3); MAGNESIUM 1.9 mg/dL (1.8-2.4); PHOSPHORUS 2.2 mg/dL (2.5-4.9); POTASSIUM 3.9 mmol/L (3.5-5.1)
[2019-11-15] MEDS: DIVALPROEX SODIUM 125 MG TABLET.DR PO SCH (09:56)
[2019-11-15] MEDS: GABAPENTIN 100 MG CAPSULE PO SCH (09:56)
[2019-11-15] MEDS: ARIPIPRAZOLE 5 MG TABLET PO SCH (09:56)
[2019-11-15] MEDS: BENZTROPINE MESYLATE (2MG/2ML) 2 MG/2 ML AMPUL IM SCH (09:56)
[2019-11-15] MEDS: BACLOFEN (10 MG) 10 MG TABLET PO SCH ×2 (09:56→12:19)
[2019-11-15] MEDS: POTASSIUM CHLORIDE 20 MEQ TAB.PRT.SR PO SCH ×3 (09:59→12:19)
[2019-11-15] MEDS ORDERED: BUMETANIDE INJ 8 MG in IV NS 0.9% 48 ML IV ONE (10:00)
[2019-11-15] MEDS ORDERED: NEUTRA PHOS 1 POWD.PACKET PO ONE (11:00)
--- NOTE | 2019-11-15 12:26 | NUR ---
ENDORSED CONTINUITY OF PT'S CARE TO NEHA HYLTON.WITH STABLE V/S.
--- NOTE | 2019-11-15 13:00 | NUR ---
PT RECEIVED AFTER REPORT RECEIVED FROM NEHA WEEKS. PT RESTING COMFORTABLY IN BED. NO S/S OR C/O PAIN OR DISTRESS NOTED SIDERAILS UP X2 CALL LIGHT LEFT WITHIN REACH. WILL CONTINUE PLAN OF CARE.
--- NOTE | 2019-11-15 17:30 | NUR ---
DISCHARGE TO [facility] AFTER REPORT GIVEN TO RICHIE SOLOMON. NO S/S OR C/O PAIN OR DISCOMFORT UPON TRANSFER. PICC AND IV ADAM REMOVED. PRESSURE DRESSING PLACED. NO BLEEDING AT TIME OF DEPARTURE. PT TRANSFERRED VIA AMBULANCE.
== END 2019-11-15 17:40 | DRG 720 ==
LOC: ER 21:55 → ICU 11-06 02:39 → TELE 11-13 12:23 → MED 11-14 12:15
PROVIDERS: ADMIT Nurse Practitioner Acute Care; ATTEND Hospitalist
PROC: B548ZZA Ultrasonography of Superior Vena Cava, Guidance (ICD-10-PCS; principal; 2019-11-06)
PROC: 5A1945Z Respiratory Ventilation, 24-96 Consecutive Hours (ICD-10-PCS; principal; 2019-11-06)
PROC: 0BH17EZ Insertion of Endotracheal Airway into Trachea, Via Natural or Artificial Opening (ICD-10-PCS; principal; 2019-11-06)
PROC: 02HV33Z Insertion of Infusion Device into Superior Vena Cava, Percutaneous Approach (ICD-10-PCS; principal; 2019-11-06)
DX: A41.9 Sepsis, unspecified organism (principal); N17.0 Acute kidney failure with tubular necrosis; R65.21 Severe sepsis with septic shock; G93.41 Metabolic encephalopathy; J90 Pleural effusion, not elsewhere classified; E44.0 Moderate protein-calorie malnutrition; J96.02 Acute respiratory failure with hypercapnia; J96.01 Acute respiratory failure with hypoxia; D68.69 Other thrombophilia; I48.91 Unspecified atrial fibrillation; J44.1 Chronic obstructive pulmonary disease with (acute) exacerbation; E86.0 Dehydration; E27.40 Unspecified adrenocortical insufficiency; E83.42 Hypomagnesemia; F03.90 Unspecified dementia, unspecified severity, without behavioral disturbance, psychotic disturbance, mood disturbance, and anxiety; N39.0 Urinary tract infection, site not specified; K21.9 Gastro-esophageal reflux disease without esophagitis; E87.6 Hypokalemia; I25.2 Old myocardial infarction; Z79.01 Long term (current) use of anticoagulants; Z87.01 Personal history of pneumonia (recurrent); H35.30 Unspecified macular degeneration; D63.8 Anemia in other chronic diseases classified elsewhere; F20.9 Schizophrenia, unspecified; E88.09 Other disorders of plasma-protein metabolism, not elsewhere classified; Z68.32 Body mass index [BMI] 32.0-32.9, adult; B96.1 Klebsiella pneumoniae [K. pneumoniae] as the cause of diseases classified elsewhere; I10 Essential (primary) hypertension; J98.11 Atelectasis; F09 Unspecified mental disorder due to known physiological condition; E83.39 Other disorders of phosphorus metabolism; E03.9 Hypothyroidism, unspecified; D50.9 Iron deficiency anemia, unspecified; D69.6 Thrombocytopenia, unspecified; Z79.82 Long term (current) use of aspirin
CPT/HCPCS: 31720; 36415; 36600; 71045-TC; 80048-TC; 80053-TC; 80061-TC; 80076-TC; 81000-TC; 82140-TC; 82533; 82728-TC; 82803-TC; 83540-TC; 83735-TC; 84100-TC; 84443-TC; 84484-TC; 85025-TC; 85730-TC; 87081-TC; 87086-TC; 87186-TC; 94003-TC; 94760-TC; 94799-TC; A4216; C1751; G0378; J0515; J0696; J1265; J1720; J2916; J3475; J3490; J7030; J7050; J7060

== ENCOUNTER 2019-11-27 16:35 | Inpatient (IN) | payer MEDICAID, MEDICARE ==
[~2019-11-27] VITALS: Ht 167.6 cm; Wt 78.5 kg
[~2019-11-27 16:35] MED LIST changes: -FLUC100T8 PO; -PRED20TA PO; -PRED5TAB48 PO
[2019-11-27 17:22] LABS: HEMATOCRIT 34 % (39-51); MEAN CORPUSCULAR HGB CONC 33 g/dl (31.0-36.0); MEAN CORPUSCULAR VOLUME 76 fL (80-96); RED BLOOD CELL COUNT(AUTO) 4.44 MIL/uL (4.5-6.0); WHITE BLOOD COUNT (AUTO) 3.3 K/uL (4.3-11.0)
--- NOTE | 2019-11-27 17:23 | NUR ---
BOLIVAR FROM SNF TO ER BED 5. AAOX1. SOB AND TACHYNEIC. SATTING 97% ON O2 VIA NC @ 2LPM. BROUGHT IN FOR SOB. PT WAS REPORTED THAT HE HAD DESATTED @ 94% ON 4LPM (O2 BASLINE @ 4LPM AT THE FACILITY). PT WAS ALREADY 100% UPON ARRIVAL ON 15LPM VIA NON REBREATHER. MD ORDER TO PUT PT ON 6LPM VIA NON REBREATHER THE ABG AT 1730. PT ALREADY HAVE MATA CATH FROM FACILITY. RECTAL TEMP NOTED @ 92.3. LUNG SOUNDS W/ BILAT CRACKLE AND RONCHI. MD WAS AT BEDSIDE FOR EVAL. ORDERS RECEIVED NOTED AND CARRIED OUT. IV LINE OBTAINED ON R WRIST 22G. BLOOD DRAWN AND GIVEN TO FISH AND WILDLIFE BIOLOGIST AT BEDSIDE. URINE COLLECTED AND SENT TO LAB. PT IS REPORTED TO HAVE NEGATIVE COVID TEST 1 MONTH AGO. PT ON MONITOR.
--- NOTE | 2019-11-27 17:35 | NUR ---
RT MADE AWARE FOR ABG
[2019-11-27 17:39] LABS: APPEARANCE,URINE Cloudy (CLEAR); BILIRUBIN,URINE SMALL (NEGATIVE); BLOOD, URINE Large Ery/uL (NEGATIVE); COLOR,URINE Dark (YELLOW); KETONES,URINE 15 (NEGATIVE); LEUKOCYTE ESTERASE ,URINE Small (NEGATIVE); NITRITE, URINE Negative (NEGATIVE); PH,URINE 5.5 (5.0-8.0); PROTEIN,URINE 100 mg/dl (NEGATIVE); UGLUCOSE Negative (NEGATIVE)
--- NOTE | 2019-11-27 17:39 | NUR ---
GEORGE GALVAN PLACED ON PT.
[2019-11-27 17:44] LABS: CREATININE 0.7 mg/dL (0.6-1.3); POTASSIUM 4.5 mmol/L (3.5-5.1)
[2019-11-27 17:49] LABS: ALBUMIN 2.9 g/dL (3.4-5.0); BILIRUBIN,DIRECT 0.3 mg/dL (0.0-0.2); BILIRUBIN,TOTAL 0.8 mg/dL (0.2-1.0); TOTAL PROTEIN, SERUM 7.5 g/dL (6.4-8.2)
[2019-11-27 17:57] LABS: BACTERIA,URINE 1+ /HPF (None Seen); RBC,URINE 51-80 /HPF (0-2); SQUAMOUS EPITHELIAL CELL,UR Few /HPF (None Seen)
[2019-11-27 17:57] LABS: ABG BASE EXCESS -0.3 mmol/L; ABG PCO2 44.2 mmHg (35.0-45.0); ABG PH 7.372 (7.350-7.450); ABG PO2 178.6 mmHg (75.0-100.0); AaDO2 55.8 mmHg; COHb 0.6 % (0.5-1.5); MetHb 0.4 % (0.0-1.5); SITE, ABG Right Radial; VENT MODE, BG NC 5 L
[2019-11-27 17:59] LABS: MAGNESIUM 1.7 mg/dL (1.8-2.4)
[2019-11-27] MEDS ORDERED: MEROPENEM 1,000 MG in IV NS 0.9% 100 ML IV ONE (18:00)
[2019-11-27] MEDS ORDERED: VANCOMYCIN 1 GM in IV D5W 250 ML IV ONE (18:00)
[2019-11-27 18:06] LABS: D-DIMER 0.96 mg/L(FEU (0.17-0.50)
--- NOTE | 2019-11-27 18:15 | NUR ---
PAGED [facility].
--- NOTE | 2019-11-27 18:46 | NUR ---
CALLED NURSING SUP FOR ICU BED.
[2019-11-27 18:51] LABS: BAND % (MANUAL) 1 % (0.0-5.0); EOSINOPHILS % (MANUAL) 2 % (0-4); LYMPHOCYTES % (MANUAL) 21 % (16-48); MONOCYTES % (MANUAL) 1 % (0-11.0); NEUTROPHILS % (MANUAL) 75 (42-76)
--- NOTE | 2019-11-27 19:19 | NUR ---
pt titrated down to 6lpm via nc. tolerated well. o2 sat noted @ 98%. made aware
[2019-11-27] MEDS ORDERED: NA PHOS,M-B/NA PHOS,DI-BA 1 EA ENEMA RC PRN (19:30)
[2019-11-27] MEDS ORDERED: MAGNESIUM HYDROXIDE 30 ML UDC PO PRN ×2 (19:30→20:00)
[2019-11-27] MEDS ORDERED: IV NS 0.9% 500 ML BAG IV ONE (19:30)
[2019-11-27 19:32] LABS: PLATELET COUNT (AUTO) 86 /CMM (150-450)
[2019-11-27] MEDS ORDERED: Z GUARD REMEDY 2 OZ OINT TP PRN (20:00)
[2019-11-27] MEDS ORDERED: MAG HYDROX/AL HYDROX/SIMETH 30 ML UDC PO PRN (20:00)
[2019-11-27] MEDS ORDERED: ONDANSETRON HCL/PF 4 MG/2 ML VIAL IVP PRN (20:00)
--- NOTE | 2019-11-27 20:07 | NUR ---
RECTAL TEMP RECHECKED, 92.5, MADE AWARE.
--- NOTE | 2019-11-27 21:53 | NUR ---
REPORT GIVEN TO NEHA RUIZ FOR SUZAN
[2019-11-27 22:00] VITALS: BP 98/45
[2019-11-27] MEDS ORDERED: LATANOPROST EYE DROP 0.005% 2.5 ML BOTTLE OP SCH (22:00)
[2019-11-27] MEDS: SENNOSIDES 8.6 MG TABLET PO SCH (22:00)
--- NOTE | 2019-11-27 22:05 | NUR ---
ICU/RN RECEIVED PATIENT BY MAMIE WITH RN FREDERICK. PATIENT IS A/O X1 SHOWS NO SIGN OF ANY DISTRESS. BUT MOANS WHEN MOVING. PATIENT IS ON NC WITH 4L SATURATING AT 99% WITH CRACKLES HEAD OF BED IS ELEVATED. PATIENT HAS RT WRITS #22 PATENT AND S/L. PATIENT ON THE MONITOR SHOWING SB HR IN THE 60'S AFIB. . WHILE CHANGING PATIENT HR DROPPED TO LOWEST HR 45. HEAD WAS IMMEDIATELY RAISED. RECTAL PROBE WAS INSERTED FOR CONSTANT TEMP MONITORING. AT ARRIVAL PATIENTS TEMP WAS 94.[address] DRAINING VIA GRAVITY WITH JASON COLOR URINE. BEAR HUGGER IS PLACED. WILL MONITOR PATIENT THROUGHOUT SHIFT.
--- NOTE | 2019-11-27 22:10 | NUR ---
PT TRANSPORTED TO UNIT ON [place] WITH EMT AND RN AT BEDSIDE. NAD NOTED DURING TRANSPORT.
[2019-11-27 22:15] VITALS: BP 133/68
--- NOTE | 2019-11-27 22:30 | NUR ---
CALLED [facility] TO TRY AND OBTAIN A COPY OF THE PATIENTS POLST. THEY HAVE A BLANK COPY SAME COPY PROVIDED TO US. ALSO TRIED TO CALLED NEXT OF [facility] AND LEFT A MESSAGE TO RECEIVED A CALL BACK.
[2019-11-27 23:00] VITALS: BP 102/48
[2019-11-27] MEDS: IV NS 0.9% 1,000 ML IV PRN (23:26)
[2019-11-28] VITALS (76 sets, daily range): BP systolic 57–153; BP diastolic 32–101
[2019-11-28] MEDS ORDERED: Magnesium 1GM/D5W 100ML PREMIX 200 ML IV ONE (01:08)
[2019-11-28] MEDS ORDERED: MEROPENEM 500 MG VIAL IV ONE ×2 (01:10→04:47)
[2019-11-28] MEDS: MEROPENEM 500 MG in IV NS 0.9% 50 ML IV SCH ×2 (01:29→04:51)
--- NOTE | 2019-11-28 02:00 | NUR ---
NOTICED PATIENT WAS DESATURATING AT 88% WITH LABORED BREATHING AND CONGESTION HEARD. CALLED RT WITH SUCTIONED HIM THROUGH NARES AND EXCESSIVE REG SPUTUM WAS SUCTIONED OUT. RT SUCTIONED MULTIPLE TIMES AND PUT PATIENT ON A NRB AT 15L. CONTINUED SUCTIONED FOR ANY REMAINING SPUTUM. PATTIENT IS NOW SATURATING AT 98% CHANGED TO NC AT HIS ORIGINAL 4L. WILL CONTINUE TO MONITOR PATIENT.
[2019-11-28] MEDS: Magnesium 1GM/D5W 100ML PREMIX 100 ML IV SCH ×2 (03:11→04:20)
--- NOTE | 2019-11-28 03:21 | NUR ---
MIDLINE INSERTED ON MARLENE. PATENT AND FLUSHING WELL.
--- NOTE | 2019-11-28 04:30 | NUR ---
PATIENTS HR INCREASING TO 130;S. WITH AND ELEVATED TEMP NOW AT 99.4. WILL ADMINISTER COOLING METHODS AND ICE BATH AND CONTINUE TO MONITOR. 0500 TRIED TO ADMINISTER TYLENOL PO, BUT PATIENT LOC HAS DECREASED. PATIENT IS LESS RESPONSIVE. ONLY OPENS EYES MINIMALLY. WILL CONTACT [facility] TO FURTHER ORDERS.
[2019-11-28] MEDS ORDERED: ACETAMINOPHEN 650 MG/SUPP.RECT RC PRN (06:00)
--- NOTE | 2019-11-28 06:02 | NUR ---
CONTACTED [facility]. WAS ABLE TO GET ORDERS FOR STAT ABG, AND TYLENOL 650MG RECTAL.
[2019-11-28 06:14] LABS: ABG BASE EXCESS -2.1 mmol/L; ABG PCO2 52.7 mmHg (35.0-45.0); ABG PH 7.292 (7.350-7.450); ABG PO2 66.2 mmHg (75.0-100.0); AaDO2 129.4 mmHg; COHb 0.7 % (0.5-1.5); MetHb 0.3 % (0.0-1.5); O2Hb 89.1 % (94.0-97.0); SITE, ABG Right Radial; VENT MODE, BG Nasal Cannula
--- NOTE | 2019-11-28 06:15 | NUR ---
ABG DONE WAITING ON RESULTS FROM RT.
[2019-11-28 06:17] LABS: BASOPHILS # (AUTO) 0.1 /CMM (0.0-0.2); BASOPHILS % (AUTO) 1.3 % (0.0-2.0); EOSINOPHILS % (AUTO) 0.6 % (0.0-6.0); HEMATOCRIT 33 % (39-51); HEMOGLOBIN 10.8 g/dL (13.5-17.5); LYMPHOCYTES # (AUTO) 0.5 /CMM (0.8-4.8); LYMPHOCYTES % (AUTO) 7.5 % (20.0-44.0); MEAN CORPUSCULAR HGB CONC 32 g/dl (31.0-36.0); MEAN CORPUSCULAR VOLUME 77 fL (80-96); MONOCYTES # (AUTO) 0.4 /CMM (0.1-1.30); MONOCYTES % (AUTO) 6.2 % (2.0-12.0); NEUTROPHILS # (AUTO) 5.2 /CMM (1.8-8.9); NEUTROPHILS % (AUTO) 84.4 % (43.0-81.0); PLATELET COUNT (AUTO) 91 /CMM (150-450); RED BLOOD CELL COUNT(AUTO) 4.33 MIL/uL (4.5-6.0); WHITE BLOOD COUNT (AUTO) 6.2 K/uL (4.3-11.0)
--- NOTE | 2019-11-28 06:23 | NUR ---
RECEIVED RESULTS FOR ABG AND PATIENTS SBP IS DROPPING TO 50'S CONTACTED SKETCHER [facility] VERDUZCO. NEW ORDERS RECEIVED FOR STAT INTUBATION, 1L OF IV BOLUS, AND START ON LEVOPHED PER PROTOCOL.
[2019-11-28] MEDS ORDERED: NOREPINEPHRINE 8MG/250ML RTU 250 ML IV ONE (06:30)
[2019-11-28] MEDS ORDERED: IV NS 0.9% 1,000 ML IV PRN (06:30)
[2019-11-28 06:36] LABS: BILIRUBIN,TOTAL 0.8 mg/dL (0.2-1.0); CREATININE 0.7 mg/dL (0.6-1.3); MAGNESIUM 2.4 mg/dL (1.8-2.4); POTASSIUM 4.1 mmol/L (3.5-5.1); TOTAL PROTEIN, SERUM 7.3 g/dL (6.4-8.2)
[2019-11-28] MEDS ORDERED: PROPOFOL 200 MG/20 ML VIAL IV ONE (06:45)
[2019-11-28] MEDS ORDERED: IV NS 0.9% 1,000 ML IV ONE (07:00)
[2019-11-28] MEDS: NOREPINEPHRINE 8 MG in IV NS 0.9% 242 ML IV PRN ×3 (07:02→20:29)
--- NOTE | 2019-11-28 07:07 | NUR ---
RT NOTE Pt rec'd on nasal cannula 4lpm. Pt NT sx for large amt of thick bloody secretions. Pt lethargic and shallow breaths noted. ABG taken and results given to RN. Pt orally intubated via ETT sz #8.0 secured at 23cm at the lipline per md request. Pt placed on [facility] vent on AC mode settings as charted. Pt showed adequate tidal volumes and peak pressures post intubation. B/s are clear bilaterally. Abg to be taken Within 1 hr. Waiting on chest Xray results. Alarms are set and audible. Vent plugged into red outlet. Ambu bag bedside. Will continue to monitor closely. Addendum: 11/28/19 at 0711 by CONCETTA PETERSON RT Amended: Links added.
--- NOTE | 2019-11-28 07:11 | NUR ---
PATIENT INTUBATED AND LEVOPHED IS INFUSING. VENT SETTINGS PLACED ORDERED. BP IS CONTROLLED.
[2019-11-28] MEDS: PROPOFOL 100 ML IV PRN ×3 (08:00→16:40)
[2019-11-28] MEDS: IV NS 0.9% 1,000 ML IV PRN (08:00)
[2019-11-28] MEDS: VANCOMYCIN 1 GM in IV D5W 250 ML IV SCH ×2 (08:00→21:04)
--- NOTE | 2019-11-28 08:08 | NUR ---
ICU PATIENT INTUBATED PROPOFOL STARTED AT 50MCG. LEVOPHED STARTED AT 0.1MCG/KG/MIN NOW RUNNING AT 0.3 WITH BP MAINTAINED.
[2019-11-28] MEDS: GABAPENTIN 100 MG CAPSULE PO SCH ×2 (09:00→16:41)
[2019-11-28] MEDS: HYDROCORTISONE SOD SUCCINATE 100 MG/2 ML VIAL IV SCH ×3 (09:00→16:41)
[2019-11-28] MEDS ORDERED: BISACODYL SUPP (10 MG) 10 MG/SUPP.RECT SUPP.RECT RC PRN (09:00)
[2019-11-28 09:03] LABS: ABG BASE EXCESS -3.5 mmol/L; ABG OXYGEN SATURATION 99.6 % (92.0-98.5); ABG PH 7.401 (7.350-7.450); ABG PO2 268.9 mmHg (75.0-100.0); AaDO2 410.1 mmHg; COHb 0.8 % (0.5-1.5); MetHb 0.3 % (0.0-1.5); O2Hb 98.5 % (94.0-97.0); SITE, ABG Right Radial; VENT MODE, BG AC 18 500 +5 100%
--- NOTE | 2019-11-28 10:21 | NUR ---
WOUND CARE CONSULT: REVIEWED CHART, NURSING DOCUMENTATION AND PHOTOS WHICH SHOW DISCOLORATION/SCARRING TO LOWER LEGS AND SCARRING TO SACRUM EXTENDING TO BUTTOCKS, PRESENT ON ADMISSION. RECOMMENDATIONS MADE FOR SKIN PROTECTION. DISCUSSED WITH NURSING STAFF. PT CURRENTLY INTUBATED AND IMMOBILE. FIRST STEP LOW AIRLOSS MATTRESS ORDERED. MD IN AGREEMENT WITH PLAN OF CARE. WILL SEE PRN.
[2019-11-28] MEDS: MEROPENEM 1 G in IV NS 0.9% 100 ML IV SCH ×2 (13:00→21:50)
[2019-11-28] MEDS: DIVALPROEX SODIUM 500 MG TABLET.DR PO SCH (13:30)
[2019-11-28] MEDS: PROSOURCE / PROSTAT (PYXIS) 30 ML UDC PO SCH ×2 (13:30→16:44)
[2019-11-28] MEDS: ASPIRIN EC 81 MG TABLET.DR PO SCH (13:30)
[2019-11-28] MEDS: HYDROXYCHLOROQUINE 200 MG TABLET PO SCH ×2 (13:31→22:34)
[2019-11-28] MEDS ORDERED: FEE PK DOSING 1 MIN EA MC ONE (14:48)
[2019-11-28] MEDS: RIVAROXABAN 10 MG TABLET PO SCH (16:42)
[2019-11-28] MEDS: ACETAMINOPHEN 325 MG TABLET PO PRN ×2 (18:00→22:34)
--- NOTE | 2019-11-28 18:01 | NUR ---
APPEALS OFFICER Shift Summary Patient sedated at this time. Does not open eyes, responds to deep pain with facial grimacing, pupils unreactive, does not follow command or move extremities. Tolerating current vent settings of FiO2 50%, SPO2 >94%. Tele monitor attached, afib HR 90s-120s with episodes of bradycardia ( aware). L nare NGT clamped, 67@nose, placement verified via xray. Willett draining dark urine to gravity. Order to replace. Sacral area intact, placed mepilex. Bilat leg scars left open to air. Edema noted on extremities. MARLENE midline infusing propofol@25mcg/kg/min+levo 0.2mcg/kg/min. R FA infusing NS @75mL/hr. R W 22G intact and patent. 100mL of red secretions via ETT this shift. Attempted to reach family - called number in chart, phone picked up by older woman who said it was the wrong number. Will F/U with [facility].. Addendum: 11/28/19 at 1809 by SREE VIRGEN RN noted temp of 101F rectally around 1730, tylenol administered, Debbie SHEARER NP aware
[2019-11-28] MEDS: SENNOSIDES 8.6 MG TABLET PO SCH (21:50)
--- NOTE | 2019-11-28 22:22 | NUR ---
RT NOTE Pt rec'd orally intubated via ETT sz #8.0 secured at 23cm at the lipline. Pt shows no signs of resp distress or sob. Pt sx'd for thick mod amt of bloody secretions. Alarms are set and audible. Vent plugged into red outlet. Ambu bag bedside. Will continue to monitor closely. Addendum: 11/28/19 at 2229 by CONCETTA PETERSON RT Amended: Links added.
[2019-11-28] MEDS: LATANOPROST EYE DROP 0.005% 2.5 ML BOTTLE OP SCH (22:43)
[2019-11-29] VITALS (87 sets, daily range): BP systolic 66–156; BP diastolic 25–113
[2019-11-29 04:29] LABS: BASOPHILS # (AUTO) 0.1 /CMM (0.0-0.2); BASOPHILS % (AUTO) 1.2 % (0.0-2.0); EOSINOPHILS % (AUTO) 0.1 % (0.0-6.0); HEMATOCRIT 31 % (39-51); HEMOGLOBIN 10.3 g/dL (13.5-17.5); LYMPHOCYTES # (AUTO) 0.8 /CMM (0.8-4.8); LYMPHOCYTES % (AUTO) 14.3 % (20.0-44.0); MEAN CORPUSCULAR HGB CONC 33 g/dl (31.0-36.0); MEAN CORPUSCULAR VOLUME 76 fL (80-96); MONOCYTES # (AUTO) 0.3 /CMM (0.1-1.30); MONOCYTES % (AUTO) 5.8 % (2.0-12.0); NEUTROPHILS # (AUTO) 4.4 /CMM (1.8-8.9); NEUTROPHILS % (AUTO) 78.6 % (43.0-81.0); PLATELET COUNT (AUTO) 77 /CMM (150-450); WHITE BLOOD COUNT (AUTO) 5.7 K/uL (4.3-11.0)
[2019-11-29 04:53] LABS: ALBUMIN 2.6 g/dL (3.4-5.0); CALCIUM, SERUM 8.4 mg/dL (8.5-10.1); CREATININE 1.1 mg/dL (0.6-1.3); MAGNESIUM 1.7 mg/dL (1.8-2.4); PHOSPHORUS 2.4 mg/dL (2.5-4.9); POTASSIUM 3.7 mmol/L (3.5-5.1); TOTAL PROTEIN, SERUM 6.5 g/dL (6.4-8.2)
[2019-11-29] MEDS: MEROPENEM 1 G in IV NS 0.9% 100 ML IV SCH ×2 (05:09→13:08)
--- NOTE | 2019-11-29 05:30 | NUR ---
patient temp started to decrease to 96.2. Bear Hugger was put on the patient. will continue to monitor.
[2019-11-29 05:49] LABS: LYMPHOCYTES % (MANUAL) 10 % (16-48); MONOCYTES % (MANUAL) 4 % (0-11.0); NEUTROPHILS % (MANUAL) 86 (42-76)
[2019-11-29] MEDS: PROPOFOL 100 ML IV PRN ×3 (06:19→23:04)
--- NOTE | 2019-11-29 07:15 | NUR ---
ICU CLOSING PATIENT INTUBATED WITH VENT SETTINGS ORDERED. TOLERATING WELL WITH SPO2 AT 99%. WITH NO SIGN OF ANY SOB OR DISTRESS. LEVOPHED RUNNING AT 0.05 MCG/KG WITH BP MAINTAINED. PROPOFOL RUNNING AT 25MCG. NO OVERNIGHT EVENTS. NEW FC PLACED WITH VISIBLE OUTPUT. BEAR HUGGER ON PATIENT. ENDORSED PATIENT TO MORNING SHIFT NURSE FOR SUZAN.
[2019-11-29] MEDS ORDERED: POTASSIUM PHOSPHATE MM 15 MMOL in IV NS 0.9% 250 ML IV SCH (07:30)
[2019-11-29] MEDS: VANCOMYCIN 1 GM in IV D5W 250 ML IV SCH (08:00)
[2019-11-29 08:27] LABS: ABG BASE EXCESS 0.1 mmol/L; ABG OXYGEN SATURATION 95.3 % (92.0-98.5); ABG PCO2 24.6 mmHg (35.0-45.0); ABG PH 7.556 (7.350-7.450); AaDO2 184.9 mmHg; COHb 0.7 % (0.5-1.5); MetHb 0.3 % (0.0-1.5); O2Hb 94.3 % (94.0-97.0); PEEP,BG 5 cm H2O; SITE, ABG Right Radial; VT, ABG 500 mL
--- NOTE | 2019-11-29 09:01 | NUR ---
ET TUBE PULLED OUT 2 CM FROM 23CM TO 21 CM AND TIDAL VOLUME CHANGED FROM 500 ML TO [address] VELAZCO. Addendum: 11/29/19 at 0903 by PARAG WASHINGTON RT Amended: Links added.
[2019-11-29] MEDS: ASPIRIN EC 81 MG TABLET.DR PO SCH (09:45)
[2019-11-29] MEDS: DIVALPROEX SODIUM 500 MG TABLET.DR PO SCH (09:45)
[2019-11-29] MEDS: HYDROXYCHLOROQUINE 200 MG TABLET PO SCH ×2 (09:46→16:44)
[2019-11-29] MEDS: HYDROCORTISONE SOD SUCCINATE 100 MG/2 ML VIAL IV SCH ×3 (09:46→19:49)
[2019-11-29] MEDS: GABAPENTIN 100 MG CAPSULE PO SCH ×2 (09:47→16:43)
[2019-11-29] MEDS: Magnesium 1GM/D5W 100ML PREMIX 100 ML IV SCH ×2 (09:47→11:57)
[2019-11-29] MEDS: PROSOURCE / PROSTAT (PYXIS) 30 ML UDC PO SCH ×2 (09:48→16:44)
[2019-11-29] MEDS: POTASSIUM PHOSPHATE MM 7.5 MMOL in IV NS 0.9% 100 ML IV SCH ×2 (13:08→16:44)
[2019-11-29] MEDS: NOREPINEPHRINE 8 MG in IV NS 0.9% 242 ML IV PRN (14:25)
[2019-11-29] MEDS: RIVAROXABAN 10 MG TABLET PO SCH (16:43)
[2019-11-29] MEDS: IV NS 0.9% 1,000 ML IV PRN (17:03)
[2019-11-29] MEDS: GLUCERNA 1.2 1,000 ML BOTTLE NG PRN (17:04)
[2019-11-29] MEDS: CEFEPIME 2 GM in IV D5W 100 ML IV SCH (18:40)
--- NOTE | 2019-11-29 19:28 | NUR ---
METAL RIVET MACHINE OPERATOR Shift Summary Patient is sedated at this time. During sedation vacation, patient did not open eyes or follow command. Pupils appear fixed, dilated, nonreactive to light. R pupil whitish/bluish/cataract? Appears to react to deep pain. Reswabbed for COVID today. ETT secretion 100mL thick and red, oral secretions thick+brownish. Tele monitor attachd afib 70-90s w/ x1 episode of bradycardia. OGT in place infusing Glucerna @20mL/hr, goal of 45mL/hr. MARLENE midline infusing dip+levo, R W TKO , R FA NS@40mL/hr. Willett output 1000mL cloudy urine this shift.
--- NOTE | 2019-11-29 19:45 | NUR ---
ICU/ACCOUNT MANAGER SALES REPRESENTATIVE REPORT RECEIVED FROM THE TO DAY NURSE. SEE FLOWSHEET FOR ASSESSMENT, SKIN ISSUES WAS ADDRESSED WELL. PT IS ON SEDATION AT THIS TIME DUE TO INTUBATION. PT IS ORALLY INTUBATED WITH SATURATION AT 99%. WILL MONITOR THIS PT AND HIS SATURATION. PT TURNED AND REPOSITIONED FOR COMFORT AND CARE. RECTAL TEMP. SHOWS 99.5, WILL WATCH THIS.
[2019-11-29] MEDS ORDERED: VANCOMYCIN 0.75 GM in IV D5W 250 ML IV SCH (20:00)
[2019-11-29] MEDS: VANCOMYCIN 0.75 GM in IV D5W 250 ML IV SCH (20:29)
--- NOTE | 2019-11-29 21:20 | NUR ---
ICU/HOGSHEAD INSPECTOR REPORT GIVEN TO NIGHT NURSE DOE FOR CONTINUE TO CARE.
[2019-11-29] MEDS: SENNOSIDES 8.6 MG TABLET PO SCH (22:50)
[2019-11-29] MEDS: LATANOPROST EYE DROP 0.005% 2.5 ML BOTTLE OP SCH (22:55)
[2019-11-30] VITALS (95 sets, daily range): BP systolic 76–153; BP diastolic 39–92
[2019-11-30 04:30] LABS: ALBUMIN 2.7 g/dL (3.4-5.0); BILIRUBIN,TOTAL 0.9 mg/dL (0.2-1.0); CREATININE 1.1 mg/dL (0.6-1.3); MAGNESIUM 2.2 mg/dL (1.8-2.4); PHOSPHORUS 2.7 mg/dL (2.5-4.9); POTASSIUM 3.9 mmol/L (3.5-5.1); TOTAL PROTEIN, SERUM 6.7 g/dL (6.4-8.2)
--- NOTE | 2019-11-30 05:46 | NUR ---
PATIENT RECEIVED WITH ETT 8.0 @ 21 cm AT THE LIP WITH SETTINGS OF AC 18, 450 VT, 40%, +5. SUCTIONED WITH LAVAGE FOR MINIMAL, THIN, WHITE SECRETIONS. AMBU BAG AT BEDSIDE. VENT ALARM AUDIBLE AND VISIBLE. VENT PLUGGED INTO RED OUTLET. ETT ROTATED Q4. Addendum: 11/30/19 at 0548 by CARMELINA SALINAS RT Amended: Links added.
[2019-11-30] MEDS: PROPOFOL 100 ML IV PRN ×2 (07:15→07:22)
[2019-11-30] MEDS: HYDROCORTISONE SOD SUCCINATE 100 MG/2 ML VIAL IV SCH ×2 (08:59→21:35)
[2019-11-30] MEDS: ASPIRIN EC 81 MG TABLET.DR PO SCH (08:59)
[2019-11-30] MEDS: HYDROXYCHLOROQUINE 200 MG TABLET PO SCH ×2 (08:59→17:42)
[2019-11-30] MEDS: VANCOMYCIN 0.75 GM in IV D5W 250 ML IV SCH ×2 (08:59→20:35)
[2019-11-30] MEDS: DIVALPROEX SODIUM 500 MG TABLET.DR PO SCH (09:00)
[2019-11-30] MEDS: GABAPENTIN 100 MG CAPSULE PO SCH ×2 (09:00→17:42)
[2019-11-30] MEDS: PROSOURCE / PROSTAT (PYXIS) 30 ML UDC PO SCH ×2 (09:02→17:45)
[2019-11-30 09:08] LABS: ABG BASE EXCESS -1.4 mmol/L; ABG OXYGEN SATURATION 95.3 % (92.0-98.5); ABG PCO2 34.3 mmHg (35.0-45.0); ABG PH 7.433 (7.350-7.450); ABG PO2 83.6 mmHg (75.0-100.0); AaDO2 162.2 mmHg; COHb 0.5 % (0.5-1.5); MetHb 0.4 % (0.0-1.5); O2Hb 94.4 % (94.0-97.0); PEEP,BG 5 cm H2O; SITE, ABG Right Radial; VENT MODE, BG SIMV PS 15; VT, ABG 450 mL
[2019-11-30] MEDS ORDERED: HYDROCORTISONE SOD SUCCINATE 100 MG/2 ML VIAL IV SCH (13:00)
[2019-11-30] MEDS: NOREPINEPHRINE 8 MG in IV NS 0.9% 242 ML IV PRN (17:24)
[2019-11-30] MEDS: CEFEPIME 2 GM in IV D5W 100 ML IV SCH (17:42)
[2019-11-30] MEDS: RIVAROXABAN 10 MG TABLET PO SCH (17:45)
[2019-11-30] MEDS: IV NS 0.9% 1,000 ML IV PRN (17:53)
--- NOTE | 2019-11-30 19:30 | NUR ---
END OF SHIFT NOTE; PT HAD A FAIRLY UNEVENTFUL SHIFT. WEANING TRIAL THIS AM, PT APPEAR TO DO WELL BUT PATIENT DID NOT WAKE UP MORE THAN SLIGHTLY OPENING EYES. PER DR. VELAZCO LEAVE PT ON SIMV AND PROPOFOL OFF TO SEE IF PATIENT WAKES UP MORE BY MORNING. OG TUBE ADVANCED TO OPTIMAL POSITION THIS AM, AIR BOLUS VERIFICATION ACHIEVED. BM X1 THIS SHIFT. PT CHECKED ON HOURLY AND PRN BY NURSING STAFF.
--- NOTE | 2019-11-30 19:53 | NUR ---
RT NOTE PT RECEIVED ON CURRENT SETTINGS WITH NO SIGNS OF RESPIRATORY DISTRESS. AIRWAY IS PATENT AND SECURE. VENT IS PLUGGED INTO RED OUTLET WITH ALARMS ON AND AUDIBLE. SUCTION PT NEEDED. WILL CONTINUE TO MONITOR T/O SHIFT. Addendum: 11/30/19 at 3 by NIESHA CURRY RT Amended: Links added.
[2019-11-30] MEDS: SENNOSIDES 8.6 MG TABLET PO SCH (21:48)
[2019-11-30] MEDS: LATANOPROST EYE DROP 0.005% 2.5 ML BOTTLE OP SCH (22:10)
[2019-12-01] VITALS (87 sets, daily range): BP systolic 79–145; BP diastolic 41–99
[2019-12-01 04:53] LABS: BASOPHILS # (AUTO) 0.1 /CMM (0.0-0.2); BASOPHILS % (AUTO) 1.5 % (0.0-2.0); EOSINOPHILS % (AUTO) 0.1 % (0.0-6.0); HEMATOCRIT 30 % (39-51); HEMOGLOBIN 9.7 g/dL (13.5-17.5); LYMPHOCYTES # (AUTO) 1.1 /CMM (0.8-4.8); LYMPHOCYTES % (AUTO) 16.6 % (20.0-44.0); MEAN CORPUSCULAR VOLUME 77 fL (80-96); MONOCYTES # (AUTO) 0.5 /CMM (0.1-1.30); NEUTROPHILS % (AUTO) 73.8 % (43.0-81.0); PLATELET COUNT (AUTO) 80 /CMM (150-450); RED BLOOD CELL COUNT(AUTO) 3.83 MIL/uL (4.5-6.0); WHITE BLOOD COUNT (AUTO) 6.7 K/uL (4.3-11.0)
[2019-12-01 05:32] LABS: CALCIUM, SERUM 8.7 mg/dL (8.5-10.1); CREATININE 0.9 mg/dL (0.6-1.3); MAGNESIUM 2.1 mg/dL (1.8-2.4); PHOSPHORUS 3.2 mg/dL (2.5-4.9); POTASSIUM 3.9 mmol/L (3.5-5.1)
[2019-12-01 06:10] LABS: MEAN CORPUSCULAR HGB CONC 0 g/dl (31.0-36.0)
[2019-12-01 06:11] LABS: LYMPHOCYTES % (MANUAL) 15 % (16-48); MONOCYTES % (MANUAL) 6 % (0-11.0); NEUTROPHILS % (MANUAL) 79 (42-76)
--- NOTE | 2019-12-01 06:38 | NUR ---
Patient tolerated ventilator well on SIMV with no sedation well overnight. Neuro exam improving. Patient appears to be following commands when asked to open and close eyes. Withdraws to light touch. able to track fingers intermittently. No BM overnight. BP maintained with low doses of levophed. Temp drop to 96.3 by AM. Svetlana Hugger warmer reinitiated this AM after linen change.
[2019-12-01] MEDS: VANCOMYCIN 0.75 GM in IV D5W 250 ML IV SCH (08:00)
--- NOTE | 2019-12-01 08:30 | NUR ---
VANCO DOSE HELD AT THIS TIME PER PHARMACY. TROUGH LEVEL IS 21.
[2019-12-01] MEDS: PROSOURCE / PROSTAT (PYXIS) 30 ML UDC PO SCH ×2 (09:27→18:32)
[2019-12-01] MEDS: DIVALPROEX SODIUM 500 MG TABLET.DR PO SCH (09:28)
[2019-12-01] MEDS: GABAPENTIN 100 MG CAPSULE PO SCH (09:28)
[2019-12-01] MEDS: HYDROXYCHLOROQUINE 200 MG TABLET PO SCH (09:28)
[2019-12-01] MEDS: HYDROCORTISONE SOD SUCCINATE 100 MG/2 ML VIAL IV SCH ×2 (09:28→21:38)
[2019-12-01] MEDS: ASPIRIN EC 81 MG TABLET.DR PO SCH (09:28)
[2019-12-01] MEDS: GLUCERNA 1.2 1,000 ML BOTTLE NG PRN (09:29)
[2019-12-01] MEDS ORDERED: VANCOMYCIN 0.75 GM in IV D5W 250 ML IV SCH (14:00)
[2019-12-01] MEDS: CEFEPIME 2 GM in IV D5W 100 ML IV SCH (18:30)
[2019-12-01] MEDS: NOREPINEPHRINE 8 MG in IV NS 0.9% 242 ML IV PRN (18:30)
[2019-12-01] MEDS: RIVAROXABAN 10 MG TABLET PO SCH (18:31)
--- NOTE | 2019-12-01 19:30 | NUR ---
END OF SHIFT NOTE: PT HAD A FAIRLY UNEVENTFUL SHIFT. 2ND COVID TEST CAME BACK NEGATIVE, PT TAKEN OUT OF ISOLATION. SEDATION REMAINS OFF PER MD ORDERS. PT OPENS EYES, DOES NOT FOLLOW COMMANDS. PT CONTINUES TO BE ON SIMV ON THE VENT PER MD ORDERS. PT CHECKED ON HOURLY AND PRN BY NURSING STAFF.
[2019-12-01] MEDS: SENNOSIDES 8.6 MG TABLET PO SCH (21:38)
[2019-12-01] MEDS: LATANOPROST EYE DROP 0.005% 2.5 ML BOTTLE OP SCH (21:47)
[2019-12-01] MEDS: IV NS 0.9% 1,000 ML IV PRN (22:03)
[2019-12-02] VITALS (89 sets, daily range): BP systolic 84–146; BP diastolic 53–99
[2019-12-02 04:44] LABS: BASOPHILS # (AUTO) 0.1 /CMM (0.0-0.2); BASOPHILS % (AUTO) 1.6 % (0.0-2.0); EOSINOPHILS % (AUTO) 0.5 % (0.0-6.0); HEMATOCRIT 29 % (39-51); HEMOGLOBIN 9.4 g/dL (13.5-17.5); LYMPHOCYTES # (AUTO) 0.8 /CMM (0.8-4.8); LYMPHOCYTES % (AUTO) 14.9 % (20.0-44.0); MEAN CORPUSCULAR HGB CONC 33 g/dl (31.0-36.0); MEAN CORPUSCULAR VOLUME 77 fL (80-96); MONOCYTES # (AUTO) 0.4 /CMM (0.1-1.30); MONOCYTES % (AUTO) 7.3 % (2.0-12.0); NEUTROPHILS % (AUTO) 75.7 % (43.0-81.0); PLATELET COUNT (AUTO) 93 /CMM (150-450); RED BLOOD CELL COUNT(AUTO) 3.71 MIL/uL (4.5-6.0)
[2019-12-02 05:01] LABS: CALCIUM, SERUM 8.6 mg/dL (8.5-10.1); CREATININE 0.7 mg/dL (0.6-1.3); MAGNESIUM 2.2 mg/dL (1.8-2.4); POTASSIUM 4.1 mmol/L (3.5-5.1)
[2019-12-02 05:33] LABS: LYMPHOCYTES % (MANUAL) 9 % (16-48); METAMYELOCYTES % 1 % (0-0); MONOCYTES % (MANUAL) 4 % (0-11.0); NEUTROPHILS % (MANUAL) 86 (42-76)
[2019-12-02 05:37] LABS: WHITE BLOOD COUNT (AUTO) 5.3 K/uL (4.3-11.0)
[2019-12-02] MEDS: GLUCERNA 1.2 1,000 ML BOTTLE NG PRN (06:00)
--- NOTE | 2019-12-02 07:48 | NUR ---
RT Pt received orally intubated on mechanical ventilation with noted settings. Pt does not follow commands at this time, but responds to stimuli when suctioned. Vent alarms are set and audible with BVM by bedside. CLINICAL TRIALS SPECIALIST cuff pressure noted. Vent is plugged into red outlet. No SOB or respiratory distress noted. Addendum: 12/02/19 at 0844 by HIGINIO BROOKS RT Amended: Links added.
[2019-12-02 07:59] LABS: ABG BASE EXCESS 1.5 mmol/L; ABG OXYGEN SATURATION 96.6 % (92.0-98.5); ABG PH 7.385 (7.350-7.450); ABG PO2 93.6 mmHg (75.0-100.0); AaDO2 138.7 mmHg; COHb 0.2 % (0.5-1.5); MetHb 0.2 % (0.0-1.5); O2Hb 96.2 % (94.0-97.0); SITE, ABG Left Radial; VENT MODE, BG SIMV 4 / PS 15; VT, ABG 450 mL
[2019-12-02] MEDS: HYDROCORTISONE SOD SUCCINATE 100 MG/2 ML VIAL IV SCH ×2 (09:32→21:29)
[2019-12-02] MEDS: ASPIRIN EC 81 MG TABLET.DR PO SCH (09:32)
[2019-12-02] MEDS: PROSOURCE / PROSTAT (PYXIS) 30 ML UDC PO SCH ×2 (09:34→18:15)
--- NOTE | 2019-12-02 12:14 | NUR ---
RN SPOKE WITH STACY AT [address] [place] [address] ABOUT PATIENTS BASELINE MENTAL STATUS. PER STACY PT'S BASELINE MENTAL STATUS IS THAT HE IS ALWAYS CONFUSED, SOMETIMES FOLLOWS COMMANDS, FREQUENTLY YELLS AND TALKS A LOT. SHE STATED THAT EVERY ONCE IN A WHILE HE WOULD PAUSE AND JUST STARE FOR A FEW MINUTES. STACY ALSO STATED THAT PT DOESN'T MOVE HIS ARMS VERY MUCH AND DOESN'T MOVE HIS LEGS AT ALL. SHE STATED HE ALWAYS HAD A GOOD APETITE AND WAS A FEEDER,
[2019-12-02] MEDS: IV NS 0.9% 1,000 ML IV PRN (15:23)
[2019-12-02] MEDS: CEFEPIME 2 GM in IV D5W 100 ML IV SCH (18:15)
[2019-12-02] MEDS: RIVAROXABAN 10 MG TABLET PO SCH (18:16)
--- NOTE | 2019-12-02 19:02 | NUR ---
END OF SHIFT NOTE: PT HAD AN UNEVENTFUL SHIFT. PT REMAINS LETHARGIC, OPENS EYES TO NAME, NOT FOLLOWING COMMANDS, FALLS RIGHT BACK TO SLEEP. SEE PREVIOUS NOTE ABOUT PT'S BASELINE. TOTAL UOP WAS 665ML. 1BM THIS SHIFT. TMAX WAS 98.9. LEVOPHED TITRATED OFF AT 1519. PT CHECKED ON HOURLY AND PRN BY NURSING STAFF
--- NOTE | 2019-12-02 19:30 | NUR ---
REIMBURSEMENT SPEC INITIAL SHIFT NOTES RECEIVED PATIENT IN BED, ASLEEP, LETHARGIC AT BASELINE. WHEN CALLING PATIENT'S NAME, PATIENT NOTED TO SLIGHTLY OPEN EYES, BUT NO MEANINGFUL COMMUNICATION ESTABLISHED. ORALLY INTUBATED ON MECHANICAL VENTILATION ON SIMC MODE, NO SEDATION, BUT DOES NOT FOLLOW COMMANDS. MARLENE MIDLINE PATENT AND INTACT, INFUSING NS @ 100ML/HR. WILL MONITOR CLOSELY
[2019-12-02] MEDS: SENNOSIDES 8.6 MG TABLET PO SCH (21:29)
[2019-12-02] MEDS: LATANOPROST EYE DROP 0.005% 2.5 ML BOTTLE OP SCH (21:30)
[2019-12-03] VITALS (41 sets, daily range): BP systolic 108–173; BP diastolic 50–152
[2019-12-03] MEDS: IV NS 0.9% 1,000 ML IV PRN ×3 (02:06→18:57)
[2019-12-03 05:13] LABS: HEMATOCRIT 29 % (39-51); HEMOGLOBIN 9.2 g/dL (13.5-17.5); MEAN CORPUSCULAR HGB CONC 32 g/dl (31.0-36.0); MEAN CORPUSCULAR VOLUME 78 fL (80-96); PLATELET COUNT (AUTO) 91 /CMM (150-450); RED BLOOD CELL COUNT(AUTO) 3.69 MIL/uL (4.5-6.0); WHITE BLOOD COUNT (AUTO) 4.5 K/uL (4.3-11.0)
[2019-12-03 05:18] LABS: CALCIUM, SERUM 8.5 mg/dL (8.5-10.1); CREATININE 0.8 mg/dL (0.6-1.3); MAGNESIUM 2.1 mg/dL (1.8-2.4); PHOSPHORUS 2.4 mg/dL (2.5-4.9)
[2019-12-03 05:25] LABS: POTASSIUM 5.3 mmol/L (3.5-5.1)
--- NOTE | 2019-12-03 07:00 | NUR ---
BUSINESS ANALYTICS MANAGER NOTES NO ACUTE EVENTS THROUGHOUT THE SHIFT. WILL ENDORSE THE PATIENT TO THE AM SHIFT NURSE FOR CONTINUITY OF CARE
[2019-12-03 07:01] LABS: BAND % (MANUAL) 2 % (0.0-5.0); EOSINOPHILS % (MANUAL) 1 % (0-4); LYMPHOCYTES % (MANUAL) 21 % (16-48); MONOCYTES % (MANUAL) 6 % (0-11.0); NEUTROPHILS % (MANUAL) 70 (42-76)
--- NOTE | 2019-12-03 07:15 | NUR ---
INNER TUBE INSERTER NOTES RECEIVED PATIENT RESPONSIVE TO VERBAL STIMULI , ABLE TO FOLLOW SIMPLE COMMANDS , OPENS EYES , NOT IN ACUTE DISTRESS ,RESPIRATIONS EVEN AND UNLABORED WITH SPO2 OF 100% VIA MECHANICAL VENT SETTINGS ORDERED , ETT 03/[address] AFIB WITH PVC'S 72 ON BEDSIDE MONITOR , OGT IN PLACE WITH GLUCERNA @ 45ML/HR INFUSING WELL WITH NO RESIDUALS NOTED , FC DRAINING WELL VIA GRAVITY , MARLENE ML WITH NS @ 100ML/HR , R [id number] AND RFA # 18 PATENT AND INTACT SL , ALL NEEDS ATTENDED, WILL CONTINUE TO MONITOR
--- NOTE | 2019-12-03 07:40 | NUR ---
RT PATIENT REC'D ORALLY INTUBATED ON MECH VENT ON SIMV VENT WEANING MODE TOLERATING WELL. VENT ALARMS CHECKED + AUDIBLE. PATIENT IN NO DISTRESS BUT REMAINS LETHARGIC AND WILL REMAIN ON SIMV MODE UNTIL MENTAL STATUS IMPROVES. AIRWAY SECURE AND IN PROPER POSITION. AMBU BAG AT HOB. Addendum: 12/03/19 at 1628 by TAJ PRINGLE RT Amended: Links added.
[2019-12-03] MEDS: PROSOURCE / PROSTAT (PYXIS) 30 ML UDC PO SCH ×2 (08:05→17:13)
[2019-12-03] MEDS: HYDROCORTISONE SOD SUCCINATE 100 MG/2 ML VIAL IV SCH ×2 (08:06→21:01)
[2019-12-03] MEDS: ASPIRIN EC 81 MG TABLET.DR PO SCH (08:06)
[2019-12-03] MEDS ORDERED: NEUTRA PHOS 1 POWD.PACKET NG ONE (10:00)
[2019-12-03] MEDS: GLUCERNA 1.2 1,000 ML BOTTLE NG PRN (11:58)
--- NOTE | 2019-12-03 15:12 | NUR ---
DENTAL LABORATORY SUPERVISOR NOTES 1000 SEEN AND EVALUATED BY DR BAE , DISCUSSED ABG RESULT , PT ON SIMV MODE ORDERED , LETHARGIC , DROWSY , OPENS EYES , FOLLOW SIMPLE COMMANDS , VS STABLE , AFEBRILE , TOLERATING GT FEEDING , DISCUSSED BASELINE MENTAL STATUS PER REPORT MD AWARE . 1230 SEEN AND EVALUATED BY DR COBB , DISCUSSED LABS , PT ON SIMV MODE , DROWSY AND LETHARGIC ABLE TO FOLLOW SIMPLE COMMANDS , VS STABLE AFEBRILE , DEPAKOTE AND GABAPENTIN DC 2 DAYS AGO , TOLERATING GTF , DISCUSSED BASELINE MENTAL STATUS PER REPORT , VERIFIED IF HE WANTS CT OF THE HEAD . MD AWARE . NO NEW ORDERS RECEIVED
[2019-12-03] MEDS: CEFEPIME 2 GM in IV D5W 100 ML IV SCH (17:13)
[2019-12-03] MEDS: RIVAROXABAN 10 MG TABLET PO SCH (17:17)
--- NOTE | 2019-12-03 19:30 | NUR ---
HELPER COORDINATOR INITIAL SHIFT NOTES RECEIVED PATIENT IN BED, AWAKE, EYES OPEN, BUT DROWSY/LETHARGIC, MORE AWAKE COMPARED TO PREVIOUS ASSESSMENT. WHEN CALLING PATIENT'S NAME, PATIENT NOTED TO PARTIALLY TRACK AND SOMETIMES NODS YES/NO TO QUESTIONS ASKED. ORALLY INTUBATED ON MECHANICAL VENTILATION ON SIMV MODE, NO SEDATION, BUT REMAINS CALM. MARLENE MIDLINE PATENT AND INTACT, INFUSING NS @ 100ML/HR. WILL MONITOR CLOSELY
[2019-12-03] MEDS: SENNOSIDES 8.6 MG TABLET PO SCH (21:01)
[2019-12-03] MEDS: LATANOPROST EYE DROP 0.005% 2.5 ML BOTTLE OP SCH (21:02)
[2019-12-04] VITALS (28 sets, daily range): BP systolic 95–181; BP diastolic 32–105
[2019-12-04 04:24] LABS: CALCIUM, SERUM 8.8 mg/dL (8.5-10.1); CREATININE 0.8 mg/dL (0.6-1.3); PHOSPHORUS 2.4 mg/dL (2.5-4.9); POTASSIUM 4.1 mmol/L (3.5-5.1)
[2019-12-04 04:38] LABS: HEMATOCRIT 30 % (39-51); HEMOGLOBIN 9.5 g/dL (13.5-17.5); MEAN CORPUSCULAR HGB CONC 32 g/dl (31.0-36.0); MEAN CORPUSCULAR VOLUME 78 fL (80-96); PLATELET COUNT (AUTO) 84 /CMM (150-450); RED BLOOD CELL COUNT(AUTO) 3.81 MIL/uL (4.5-6.0); WHITE BLOOD COUNT (AUTO) 4.4 K/uL (4.3-11.0)
[2019-12-04 05:11] LABS: EOSINOPHILS % (MANUAL) 1 % (0-4); LYMPHOCYTES % (MANUAL) 23 % (16-48); MONOCYTES % (MANUAL) 8 % (0-11.0); NEUTROPHILS % (MANUAL) 68 (42-76)
[2019-12-04] MEDS: IV NS 0.9% 1,000 ML IV PRN ×2 (05:24→15:27)
--- NOTE | 2019-12-04 07:00 | NUR ---
PROCESS AREA SUPERVISOR NOTES NO ACUTE EVENTS THROUGHOUT THE SHIFT. PATIENT REMAINS ORALLY INTUBATED ON SIMV MODE, MORE PERIODS OF WAKEFULNESS BUT STILL LETHARGIC/DROWSY, SOMETIMES NODDING YES/NO TO QUESTIONS. WILL ENDORSE THE PATIENT TO THE AM SHIFT NURSE FOR CONTINUITY OF CARE.
--- NOTE | 2019-12-04 07:15 | NUR ---
SENIOR JAVA SOFTWARE DEVELOPER NOTES RECEIVED PATIENT RESPONSIVE TO VERBAL STIMULI , ABLE TO FOLLOW SIMPLE COMMANDS , OPENS EYES , NOT IN ACUTE DISTRESS ,RESPIRATIONS EVEN AND UNLABORED WITH SPO2 OF 100% VIA MECHANICAL VENT SIMV MODE SETTINGS ORDERED , ETT 03/[address] AFIB WITH PVC'S 82 ON BEDSIDE MONITOR , OGT IN PLACE WITH GLUCERNA @ 45ML/HR INFUSING WELL WITH NO RESIDUALS NOTED , FC DRAINING WELL VIA GRAVITY , MARLENE ML WITH NS @ 100ML/HR , R WRIST22 AND RFA # 18 PATENT AND INTACT SL , ALL NEEDS ATTENDED, WILL CONTINUE TO MONITOR
[2019-12-04 07:50] LABS: ABG BASE EXCESS 2.3 mmol/L; ABG OXYGEN SATURATION 97.7 % (92.0-98.5); ABG PCO2 45.6 mmHg (35.0-45.0); ABG PH 7.399 (7.350-7.450); ABG PO2 110.2 mmHg (75.0-100.0); AaDO2 50.1 mmHg; COHb 0.6 % (0.5-1.5); MetHb 0.2 % (0.0-1.5); O2Hb 96.9 % (94.0-97.0); SITE, ABG Left Radial
--- NOTE | 2019-12-04 07:55 | NUR ---
RT PATIENT REC'D ORALLY INTUBATED ON MECH VENT ON SIMV VENT WEANING MODE TOLERATING WELL. VENT ALARMS CHECKED + AUDIBLE. PATIENT IN NO DISTRESS BUT REMAINS LETHARGIC AND WILL REMAIN ON SIMV MODE UNTIL MENTAL STATUS IMPROVES. AIRWAY SECURE AND IN PROPER POSITION. AMBU BAG AT HOB. Addendum: 12/04/19 at 1013 by TAJ PRINGLE RT Amended: Links added.
[2019-12-04] MEDS: PROSOURCE / PROSTAT (PYXIS) 30 ML UDC PO SCH ×2 (08:18→16:13)
[2019-12-04] MEDS: HYDROCORTISONE SOD SUCCINATE 100 MG/2 ML VIAL IV SCH ×2 (08:18→22:51)
[2019-12-04] MEDS: ASPIRIN EC 81 MG TABLET.DR PO SCH (08:18)
--- NOTE | 2019-12-04 11:39 | NUR ---
SINK MAKER NOTES SEEN AND EVALUATED BY DR VELAZCO , DISCUSSED ABG RESULT , PT ON SIMV MODE ORDERED , LETHARGIC , DROWSY , OPENS EYES , FOLLOW SIMPLE COMMANDS , VS STABLE , AFEBRILE , TOLERATING GT FEEDING , DISCUSSED BASELINE MENTAL STATUS PER REPORT AWARE . Addendum: 12/04/19 at 1140 by SURI KERN RN FREQUENT ORAL / ETT SUCTIONING NOTED WITH MODERATE TO LARGE AMOUNT OF THIN / THICK FROTHY SECRETIONS .
[2019-12-04] MEDS ORDERED: NEUTRA PHOS 1 POWD.PACKET NG ONE (12:30)
--- NOTE | 2019-12-04 13:30 | NUR ---
RT PER DR VELAZCO PATIENT PLACED ON T-TUBE C/A TRIAL. 8L 35% Addendum: 12/04/19 at 1440 by TAJ PRINGLE RT Amended: Links added.
[2019-12-04] MEDS: RIVAROXABAN 10 MG TABLET PO SCH (16:14)
[2019-12-04] MEDS: CEFEPIME 2 GM in IV D5W 100 ML IV SCH (17:01)
--- NOTE | 2019-12-04 18:00 | NUR ---
QUALITY SYSTEMS ENGINEER NOTES CALLED RT PT NOTED WITH DISTRESS , RR 30CPM , HR 120'S , PLACED BACK PT ON SIMV MODE ORDERED WITH SPO2 OF 100% WILL CONTINUE TO MONITOR
--- NOTE | 2019-12-04 18:09 | NUR ---
RT PATIENT WAS UNABLE TO TOLERATE C/A TRIAL. PLACED BACK ON VENT. Addendum: 12/04/19 at 1811 by TAJ PRINGLE RT Amended: Links added.
[2019-12-04] MEDS: GLUCERNA 1.2 1,000 ML BOTTLE NG PRN (18:47)
--- NOTE | 2019-12-04 19:30 | NUR ---
GROUP WORK PROGRAM AIDE INITIAL SHIFT NOTES RECEIVED PATIENT IN BED, AWAKE, EYES OPEN, BUT DROWSY/LETHARGIC, SOMETIMES NODS YES WHEN ASKED SIMPLE QUESTIONS. WHEN CALLING PATIENT'S NAME, PATIENT NOTED TO PARTIALLY TRACK. PATIENT INTUBATED ON MECHANICAL VENTILATION ON SIMV MODE, NO SEDATION, BUT REMAINS CALM. MARLENE MIDLINE PATENT AND INTACT, INFUSING NS @ 100ML/HR. WILL MONITOR CLOSELY
[2019-12-04] MEDS: SENNOSIDES 8.6 MG TABLET PO SCH (22:50)
[2019-12-04] MEDS: LATANOPROST EYE DROP 0.005% 2.5 ML BOTTLE OP SCH (22:52)
[2019-12-05] VITALS (28 sets, daily range): BP systolic 122–154; BP diastolic 57–103
[2019-12-05] MEDS: IV NS 0.9% 1,000 ML IV PRN ×2 (02:18→13:43)
[2019-12-05 04:34] LABS: BASOPHILS % (AUTO) 0.8 % (0.0-2.0); EOSINOPHILS % (AUTO) 0.4 % (0.0-6.0); HEMATOCRIT 29 % (39-51); HEMOGLOBIN 9.4 g/dL (13.5-17.5); LYMPHOCYTES # (AUTO) 1.9 /CMM (0.8-4.8); MEAN CORPUSCULAR HGB CONC 33 g/dl (31.0-36.0); MEAN CORPUSCULAR VOLUME 79 fL (80-96); MONOCYTES # (AUTO) 0.3 /CMM (0.1-1.30); MONOCYTES % (AUTO) 6.2 % (2.0-12.0); NEUTROPHILS # (AUTO) 2.9 /CMM (1.8-8.9); NEUTROPHILS % (AUTO) 55.6 % (43.0-81.0); PLATELET COUNT (AUTO) 104 /CMM (150-450); RED BLOOD CELL COUNT(AUTO) 3.61 MIL/uL (4.5-6.0); WHITE BLOOD COUNT (AUTO) 5.1 K/uL (4.3-11.0)
[2019-12-05 04:42] LABS: CALCIUM, SERUM 9.3 mg/dL (8.5-10.1); CREATININE 0.7 mg/dL (0.6-1.3); PHOSPHORUS 2.3 mg/dL (2.5-4.9); POTASSIUM 4.5 mmol/L (3.5-5.1)
--- NOTE | 2019-12-05 05:03 | NUR ---
RT NOTE Pt rec'd orally intubated via ETT sz #8.0 secured at 21CM at the lipline. Pt shows no signs of resp distress or sob. Pt on SIMV mode settings as charted. Pt sx'd for thick mod amt of bloody secretions. Alarms are set and audible. Vent plugged into red outlet. Ambu bag bedside. Will continue to monitor closely. Addendum: 12/05/19 at 0505 by CONCETTA PETERSON RT Amended: Links added.
--- NOTE | 2019-12-05 07:00 | NUR ---
MANAGER MUTUAL FUND NOTES NO ACUTE EVENTS THROUGHOUT THE SHIFT. PATIENT REMAINS ORALLY INTUBATED ON SIMV MODE, MORE PERIODS OF WAKEFULNESS BUT STILL LETHARGIC/DROWSY, SOMETIMES NODDING YES/NO TO QUESTIONS. WILL ENDORSE THE PATIENT TO THE AM SHIFT NURSE FOR CONTINUITY OF CARE.
[2019-12-05] MEDS: PROSOURCE / PROSTAT (PYXIS) 30 ML UDC PO SCH ×2 (09:27→17:14)
[2019-12-05] MEDS: ASPIRIN EC 81 MG TABLET.DR PO SCH (09:27)
[2019-12-05] MEDS: HYDROCORTISONE SOD SUCCINATE 100 MG/2 ML VIAL IV SCH ×2 (09:27→21:50)
[2019-12-05] MEDS ORDERED: NEUTRA PHOS 1 POWD.PACKET NG ONE (10:30)
[2019-12-05] MEDS ORDERED: NEUTRA PHOS 1 POWD.PACKET PO ONE (13:30)
[2019-12-05] MEDS: GLUCERNA 1.2 1,000 ML BOTTLE NG PRN (17:14)
[2019-12-05] MEDS: RIVAROXABAN 10 MG TABLET PO SCH (18:31)
[2019-12-05] MEDS: CEFEPIME 2 GM in IV D5W 100 ML IV SCH (18:31)
--- NOTE | 2019-12-05 19:00 | NUR ---
Received patient orally intubated to the ventilator on SIMV mode, tolerating well, breathing regular ,RR=20's, non labored.,Noted pinkish,frothy secretions from OET tube,but no active bleeding ,with copious amount of secretions orally.Easily Responsive to pain, grimaces, opens eyes,but does not seem to comprehend , not moving any extremities, Grossly edematous all over the body and scrotum.With OGT ,placement checked + by auscultation,with on going feeding,Aspiration Precaution implemented.
--- NOTE | 2019-12-05 19:30 | NUR ---
PT HAD AN UNEVENTFUL SHIFT. PT WAS AFEBRILE. NO WEANING TODAY PER DR. VELAZCO. NO BM THIS SHIFT. NO SEDATION. PT AWAKE, MAKES EYE CONTACT, OCCASIONALLY NODS HEAD TO QUESTIONS. PT CHECKED ON HOURLY AND PRN BY NURSING STAFF.
--- NOTE | 2019-12-05 20:10 | NUR ---
PT RECEIVED ORALLY INTUBATED 8.0 ETT SECURED AT 21CM @THE LIP LINE ON CHARTED SIMV VENT SETTINGS. NO SIGNS OF RESP DISTRESS/SOB NOTED AT THIS TIME. LANDMAN DONE. PT SUCTIONED MODERATE AMOUNT OF THICK BLOODY SECRETIONS. ALARMS SET AND AUDIBLE. VENT PLUGGED INTO RED OUTLET. AMBUBAG AT [facility]. WILL CONT TO MONITOR. Addendum: 12/05/19 at 2333 by RAYMOND LAURENT RT Amended: Links added.
[2019-12-05] MEDS: SENNOSIDES 8.6 MG TABLET PO SCH (21:50)
[2019-12-05] MEDS: LATANOPROST EYE DROP 0.005% 2.5 ML BOTTLE OP SCH (21:55)
[2019-12-06] VITALS (34 sets, daily range): BP systolic 117–181; BP diastolic 40–112
--- NOTE | 2019-12-06 | NUR ---
Remains stable,awake,alert,opens eyes,not following commands.Still on SIMV ,tolerating well, no SOB at rest.
[2019-12-06] MEDS: IV NS 0.9% 1,000 ML IV PRN (00:13)
--- NOTE | 2019-12-06 03:00 | NUR ---
Am bath done, no pressure injury,but grossly edematous.Noted to be slightly short of breath after turning and moving with AM care,but saturating well.
[2019-12-06 04:31] LABS: BASOPHILS % (AUTO) 0.5 % (0.0-2.0); EOSINOPHILS % (AUTO) 0.4 % (0.0-6.0); HEMATOCRIT 27 % (39-51); HEMOGLOBIN 8.9 g/dL (13.5-17.5); MEAN CORPUSCULAR HGB CONC 33 g/dl (31.0-36.0); MEAN CORPUSCULAR VOLUME 79 fL (80-96); MONOCYTES # (AUTO) 0.5 /CMM (0.1-1.30); MONOCYTES % (AUTO) 6.1 % (2.0-12.0); NEUTROPHILS # (AUTO) 4.9 /CMM (1.8-8.9); PLATELET COUNT (AUTO) 117 /CMM (150-450); RED BLOOD CELL COUNT(AUTO) 3.42 MIL/uL (4.5-6.0); WHITE BLOOD COUNT (AUTO) 7.4 K/uL (4.3-11.0)
[2019-12-06 04:42] LABS: CALCIUM, SERUM 8.5 mg/dL (8.5-10.1); CREATININE 0.6 mg/dL (0.6-1.3); PHOSPHORUS 2.2 mg/dL (2.5-4.9); POTASSIUM 3.9 mmol/L (3.5-5.1)
[2019-12-06 10:01] LABS: ABG BASE EXCESS 0.8 mmol/L; ABG OXYGEN SATURATION 95.4 % (92.0-98.5); ABG PCO2 41.6 mmHg (35.0-45.0); ABG PH 7.406 (7.350-7.450); ABG PO2 81.8 mmHg (75.0-100.0); AaDO2 83.2 mmHg; COHb 0.6 % (0.5-1.5); MetHb 0.4 % (0.0-1.5); O2Hb 94.4 % (94.0-97.0); SITE, ABG Left Radial; VENT MODE, BG SIMV 4 450 PS15 30%+5
[2019-12-06] MEDS: PROSOURCE / PROSTAT (PYXIS) 30 ML UDC PO SCH ×2 (11:05→17:19)
[2019-12-06] MEDS: NEUTRA PHOS 1 POWD.PACKET PO SCH ×2 (11:05→17:19)
[2019-12-06] MEDS: HYDROCORTISONE SOD SUCCINATE 100 MG/2 ML VIAL IV SCH ×2 (11:05→21:14)
--- NOTE | 2019-12-06 19:00 | NUR ---
RECEIVED PATIENT ORALLY INTUBATED TO THE VENT ON SIMV MODE,BREATHING WELL ,REGULAR ,RR-17-20,NOT IN ANY DISTRESS,ON AND OFF DROWSY TO AWAKE ,OPENS EYES NOT FOLLOWING COMMANDS,DOES NOT SEEM TO COMPREHEND WELL. wITH ON GOING TUBE FEEDING VIA OGT ,TOLERATING WELL ,ASPIRATION PRECAUTION IMPLEMENTED ,WILL CHECK RESIDUALS. IV ACCESS ,MIDLINE MARLENE . COMFORT CARE DONE,NEEDS ATTENDED.
[2019-12-06] MEDS: CEFEPIME 2 GM in IV D5W 100 ML IV SCH (19:07)
[2019-12-06] MEDS: GLUCERNA 1.2 1,000 ML BOTTLE NG PRN (19:08)
[2019-12-06] MEDS: RIVAROXABAN 10 MG TABLET PO SCH (19:08)
--- NOTE | 2019-12-06 19:30 | NUR ---
END OF SHIFT NOTE: PT HAD AN UNEVENTFUL SHIFT. 1 BM THIS SHIFT. NO CHANGE IN VENT SETTINGS OR MENTAL STATUS. PT CHECKED ON HOURLY AND PRN BY NURSING STAFF.
--- NOTE | 2019-12-06 19:56 | NUR ---
PT RECEIVED ORALLY INTUBATED WITH 8.0 ETT SECURED @ 21 CM LIP LINE ON MECHANICAL VENTILATION WITH NOTED SETTINGS . SX DONE, ETT SECURED AND PATENT. ALARMS ON AND AUDIBLE. VENT PLUGGED TO RED OUTLET. NO RESPIRATORY DISTRESS NOTED AT THIS TIME. WILL CONTINUE TO MONITOR T/O SHIFT.
[2019-12-06] MEDS: SENNOSIDES 8.6 MG TABLET PO SCH (21:15)
[2019-12-06] MEDS: LATANOPROST EYE DROP 0.005% 2.5 ML BOTTLE OP SCH (21:16)
[2019-12-07] VITALS (26 sets, daily range): BP systolic 108–143; BP diastolic 59–108
--- NOTE | 2019-12-07 | NUR ---
REMAINS STABLE,ALERT,OPENS EYES ,SEEMS TO BE LISTENING BUT DOES NOT SEEM TO COMPREHEND .
--- NOTE | 2019-12-07 04:00 | NUR ---
REMAINS STABLE,NOT IN ANY DISTRESS.TOLERATED AM CARE.
[2019-12-07 04:35] LABS: CALCIUM, SERUM 8.7 mg/dL (8.5-10.1); CREATININE 0.7 mg/dL (0.6-1.3)
--- NOTE | 2019-12-07 07:00 | NUR ---
REMAINS STABLE.FOR WEANING TRIAL TODAY.REPORT GIVEN TO REZA SOLOMON.
--- NOTE | 2019-12-07 07:55 | NUR ---
RT pt placed on CA 28% per md order. pt tolerating well. sating 100%. abg to follow
--- NOTE | 2019-12-07 08:00 | NUR ---
agricultural research technologist received pt from pm nurse no distress noted, pt is intubated on simv settings noticed no distress noted, pt open eyes does not follow but able to track, iv access patent david mid line, vasques present draiing urine , pt all extremities flacid, turn and reposition in bed no distress noted orders received for extubation will follow orders, safety measures taken will continue to monitor.
[2019-12-07] MEDS: PROSOURCE / PROSTAT (PYXIS) 30 ML UDC PO SCH ×2 (08:32→17:10)
[2019-12-07] MEDS: HYDROCORTISONE SOD SUCCINATE 100 MG/2 ML VIAL IV SCH ×2 (08:32→21:30)
[2019-12-07 08:40] LABS: ABG OXYGEN SATURATION 95.2 % (92.0-98.5); ABG PCO2 38.7 mmHg (35.0-45.0); ABG PH 7.447 (7.350-7.450); ABG PO2 76.7 mmHg (75.0-100.0); AaDO2 77.3 mmHg; COHb 0.9 % (0.5-1.5); MetHb 0.1 % (0.0-1.5); O2Hb 94.2 % (94.0-97.0); SITE, ABG Left Radial; VENT MODE, BG CA 28%
[2019-12-07] MEDS ORDERED: DC PROPOFOL WHEN EXTUBATED XX PRN (09:00)
--- NOTE | 2019-12-07 09:01 | NUR ---
RT waiting extubation orders
--- NOTE | 2019-12-07 11:05 | NUR ---
agricultural produce packer pt in extubated as ordered o2 sat 94% rr 30 will continue to monitor.
--- NOTE | 2019-12-07 11:06 | NUR ---
RT pt extubated per md order. pt suctioned orally pre and post extubation and via ett pre extubation. placed on 2lnc. saturation 96% on 2lnc. abg to follow. will continue to monitor.
--- NOTE | 2019-12-07 12:00 | NUR ---
agricultural equipment mechanic dc pt og tube and reinserted r nare ng tube positive placement running tube feeding .
[2019-12-07 14:05] LABS: ABG BASE EXCESS 4.8 mmol/L; ABG OXYGEN SATURATION 89.3 % (92.0-98.5); ABG PCO2 42.8 mmHg (35.0-45.0); ABG PH 7.452 (7.350-7.450); ABG PO2 54.1 mmHg (75.0-100.0); AaDO2 181.9 mmHg; COHb 0.7 % (0.5-1.5); MetHb 0.4 % (0.0-1.5); O2Hb 88.3 % (94.0-97.0); SITE, ABG Left Radial
--- NOTE | 2019-12-07 14:07 | NUR ---
olericulture professor pt abg done dr solano notified pt placed on simple face mask 7L for o2 support will continue to monitor.
[2019-12-07] MEDS: GLUCERNA 1.2 1,000 ML BOTTLE NG PRN (16:11)
[2019-12-07] MEDS: RIVAROXABAN 10 MG TABLET PO SCH (17:09)
[2019-12-07] MEDS: CEFEPIME 2 GM in IV D5W 100 ML IV SCH (17:10)
--- NOTE | 2019-12-07 18:12 | NUR ---
rn picu pt in bed on nc at this time rr 25-30 at this time sat 90-96% on NC, provided naso tracheal suctioning thought the shift, dr. solano is aware of pt condition will continue to closely monitor pt respiration and effort , will give report to pm nurse for continuity of care. no major distress noted during shift, pt in bed comfortable. all pt needs meet.
[2019-12-07] MEDS: SENNOSIDES 8.6 MG TABLET PO SCH (21:31)
[2019-12-07] MEDS: LATANOPROST EYE DROP 0.005% 2.5 ML BOTTLE OP SCH (21:33)
[2019-12-08] VITALS (26 sets, daily range): BP systolic 95–159; BP diastolic 37–110
[2019-12-08 04:28] LABS: CALCIUM, SERUM 8.8 mg/dL (8.5-10.1); CARBON DIOXIDE 31 mmol/L (21-32); CHLORIDE 111 mmol/L (98-107); CREATININE 0.5 mg/dL (0.6-1.3); GLUCOSE 121 mg/dL (74-106); POTASSIUM 4.1 mmol/L (3.5-5.1); SODIUM SERUM 146 mmol/L (136-145); UREA NITROGEN, BLOOD 37 mg/dL (7-18)
--- NOTE | 2019-12-08 06:42 | NUR ---
rn notes resting comfortably in bed, noted facial grimmacing and restlessness with 02sat of 88-90%. suctioned moderate amount of yellowish thin secretion. noted to have difficulty breathing, accessory muscles used. gave ativan x2, not effective. gave morphine sulfate x 2, effective. temperature was 99.6. went up to 100.4, tylenol given with help. temp went down to 99.2. kept clean and dry. o2sat ranges from 96-100%, tmmp 99.6, will endorse to next shift for continuity of care Addendum: 12/08/19 at 0650 by BRUNO CORDERO RN please disregard note. wrong patient
--- NOTE | 2019-12-08 06:50 | NUR ---
rn notes resting comfortably in bed, noted facial grimmacing and restlessness with 02sat of 84-89%. suctioned large amount of red/pink thick secretion. noted to have difficulty breathing, accessory muscles used. head of bed elevated. reposition for comfort. o2sat went up to 95-98%, kept clean and dry. will endorse to next shift for continuity of care
[2019-12-08] MEDS: PROSOURCE / PROSTAT (PYXIS) 30 ML UDC PO SCH ×2 (07:54→17:03)
[2019-12-08] MEDS: HYDROCORTISONE SOD SUCCINATE 100 MG/2 ML VIAL IV SCH ×2 (07:54→21:33)
[2019-12-08 08:36] LABS: ABG BASE EXCESS 2.7 mmol/L; ABG OXYGEN SATURATION 77.9 % (92.0-98.5); ABG PCO2 44.4 mmHg (35.0-45.0); ABG PH 7.412 (7.350-7.450); ABG PO2 43.6 mmHg (75.0-100.0); AaDO2 161.6 mmHg; COHb 1.2 % (0.5-1.5); MetHb 0.3 % (0.0-1.5); O2Hb 76.7 % (94.0-97.0); SITE, ABG Left Radial; VENT MODE, BG 4 LPM N/C
[2019-12-08] MEDS: ACETYLCYSTEINE 10% SOLN 400 MG/4 ML VIAL NEB SCH ×3 (09:40→22:32)
[2019-12-08] MEDS: FUROSEMIDE 40 MG/4 ML VIAL IV SCH ×3 (09:40→17:02)
[2019-12-08] MEDS: IPRATROPIUM NEB FS 0.5 MG/2.5 ML AMPUL.NEB NEB SCH ×5 (09:40→22:32)
[2019-12-08 10:51] LABS: ABG BASE EXCESS 2.6 mmol/L; ABG OXYGEN SATURATION 96.1 % (92.0-98.5); ABG PCO2 44.9 mmHg (35.0-45.0); ABG PH 7.408 (7.350-7.450); AaDO2 290.4 mmHg; COHb 0.7 % (0.5-1.5); MetHb 0.7 % (0.0-1.5); O2Hb 94.8 % (94.0-97.0); SITE, ABG Left Radial
--- NOTE | 2019-12-08 10:54 | NUR ---
curriculum and instruction director abg done dr. rodriguez aware no new changes at this time.
[2019-12-08] MEDS: ALBUTEROL HALF STRENGTH 1.25 MG/3 ML VIAL.NEB NEB SCH ×4 (10:56→22:32)
[2019-12-08] MEDS: RIVAROXABAN 10 MG TABLET PO SCH (17:02)
[2019-12-08] MEDS: CEFEPIME 2 GM in IV D5W 100 ML IV SCH (17:03)
[2019-12-08] MEDS: GLUCERNA 1.2 1,000 ML BOTTLE NG PRN (17:05)
--- NOTE | 2019-12-08 20:00 | NUR ---
Received patient eyes open spontaneously non verbal and not following commands.Dx:SEPSIS. H/O of AFIB,PNA,GERD,ANEMIA,COPD,DEMENTIA & SCHIZOPRENIA.On 6L simple mask spo2 98%. No acute distress noted.Afib controlled.Afebrile.Normotensive.Tube feeding infusing via R nares NGT placement verified.HOB elevated.FC to gravity drainage.NS at tko infusing to MARLENE PICC Line and site intact.Turned and repositioned to comfort.Continue monitoring.
--- NOTE | 2019-12-08 20:33 | NUR ---
RT NOTE RECEIVED PT ON 6LPM SIMPLE MASK. NO SOB NOTED. TX GIVEN. NO ADVERSE REACTIONS NOTED. WILL CONTINUE TO MONITOR T/O SHIFT.
[2019-12-08] MEDS: LATANOPROST EYE DROP 0.005% 2.5 ML BOTTLE OP SCH (21:33)
[2019-12-08] MEDS: SENNOSIDES 8.6 MG TABLET PO SCH (21:37)
[2019-12-09] VITALS (22 sets, daily range): BP systolic 115–151; BP diastolic 42–93
[2019-12-09] MEDS: ALBUTEROL HALF STRENGTH 1.25 MG/3 ML VIAL.NEB NEB SCH ×6 (02:33→23:36)
[2019-12-09] MEDS: IPRATROPIUM NEB FS 0.5 MG/2.5 ML AMPUL.NEB NEB SCH ×6 (02:33→23:36)
[2019-12-09 04:38] LABS: BASOPHILS % (AUTO) 0.5 % (0.0-2.0); EOSINOPHILS % (AUTO) 0.1 % (0.0-6.0); HEMATOCRIT 29 % (39-51); HEMOGLOBIN 9.3 g/dL (13.5-17.5); LYMPHOCYTES # (AUTO) 0.3 /CMM (0.8-4.8); LYMPHOCYTES % (AUTO) 3.3 % (20.0-44.0); MEAN CORPUSCULAR HGB CONC 33 g/dl (31.0-36.0); MEAN CORPUSCULAR VOLUME 79 fL (80-96); MONOCYTES # (AUTO) 0.6 /CMM (0.1-1.30); NEUTROPHILS # (AUTO) 7.9 /CMM (1.8-8.9); NEUTROPHILS % (AUTO) 89.1 % (43.0-81.0); PLATELET COUNT (AUTO) 169 /CMM (150-450); RED BLOOD CELL COUNT(AUTO) 3.63 MIL/uL (4.5-6.0); WHITE BLOOD COUNT (AUTO) 8.8 K/uL (4.3-11.0)
[2019-12-09 05:06] LABS: CALCIUM, SERUM 9.1 mg/dL (8.5-10.1); CREATININE 0.6 mg/dL (0.6-1.3); POTASSIUM 3.9 mmol/L (3.5-5.1)
--- NOTE | 2019-12-09 06:30 | NUR ---
Patient resting in no acute distress.Patient with moderate secretion suctioned via naso tracheal route.Desat occasionally to 88%-89%.HOB elevated.Was turned & repositioned. Tolerating tube feeding well.VS stable.Good urine output.All needs met.Will endorse to day shift for mayco.
--- NOTE | 2019-12-09 07:05 | NUR ---
RN NOTES RECEIVED PT ON BED, ALERT/ EYES ARE OPEN, PT FOLLOWS SIMPLE COMMAND, NONVERBAL, ON 6L O2 FACE MASK, ORAL AND NT SUCTIONING DONE, O2 SAT IN 93-94%, ON TELE A.FIB HR IN 90'S , TUBE FEEDING AT 45CC/HR RUNNING VIA L NARE NGT , NO RESIDUAL NOTED, MATA DRAINING TO GRAVITY, R UPPER ARM MIDLINE SITE CLEAN, DRY AND INTACT, SR UP x3, CALL LIGHT WITHIN EASY REACH, BED LOCKED AND IN LOWEST POSITION, CONTINUE TO MONITOR .
[2019-12-09] MEDS: ACETYLCYSTEINE 10% SOLN 400 MG/4 ML VIAL NEB SCH ×3 (08:01→23:36)
[2019-12-09] MEDS: HYDROCORTISONE SOD SUCCINATE 100 MG/2 ML VIAL IV SCH ×2 (08:39→20:11)
[2019-12-09] MEDS: PROSOURCE / PROSTAT (PYXIS) 30 ML UDC PO SCH ×2 (08:40→16:30)
[2019-12-09 09:29] LABS: ABG BASE EXCESS 4.6 mmol/L; ABG OXYGEN SATURATION 95.7 % (92.0-98.5); ABG PCO2 49.1 mmHg (35.0-45.0); ABG PH 7.404 (7.350-7.450); ABG PO2 85.1 mmHg (75.0-100.0); AaDO2 288.7 mmHg; COHb 0.7 % (0.5-1.5); MetHb 0.1 % (0.0-1.5); O2Hb 94.9 % (94.0-97.0); SITE, ABG Left Radial; VENT MODE, BG SIMPLE MASK
--- NOTE | 2019-12-09 12:00 | NUR ---
RN NOTES , ORAL AND NT SUCTIONING DONE, PT HAS MODERATE SECRETION , O2 SAT WNL.
--- NOTE | 2019-12-09 15:00 | NUR ---
RN NOTES DR CLOUD NOTIFED REGARDING LOW URINE OUTPUT.
[2019-12-09] MEDS: RIVAROXABAN 10 MG TABLET PO SCH (16:29)
[2019-12-09] MEDS: GLUCERNA 1.2 1,000 ML BOTTLE NG PRN (16:30)
[2019-12-09] MEDS ORDERED: FUROSEMIDE 40 MG/4 ML VIAL IV ONE (18:30)
--- NOTE | 2019-12-09 18:30 | NUR ---
RN NOTES DR BUSTILLO NOTIFED REGARDING LOW URINE OUTPUT , NEW ORDER RECEIVED , CONTINUE TO MONITOR.
[2019-12-09] MEDS: SENNOSIDES 8.6 MG TABLET PO SCH (21:03)
[2019-12-09] MEDS: LATANOPROST EYE DROP 0.005% 2.5 ML BOTTLE OP SCH (21:03)
[2019-12-10] VITALS (18 sets, daily range): BP systolic 100–134; BP diastolic 54–89
--- NOTE | 2019-12-10 01:34 | NUR ---
RN NOTES O2 SAT IN HIGH 90'S VSS STABLE , NO SIGNIFICANT CHANGES NOTED ON THIS SHIFT , WILL ENDORSE TO AM NURSE FOR CONTINUITY OF CARE .
[2019-12-10] MEDS: ALBUTEROL HALF STRENGTH 1.25 MG/3 ML VIAL.NEB NEB SCH ×6 (02:36→23:40)
[2019-12-10] MEDS: IPRATROPIUM NEB FS 0.5 MG/2.5 ML AMPUL.NEB NEB SCH ×6 (02:36→23:40)
[2019-12-10] MEDS ORDERED: FUROSEMIDE 40 MG/4 ML VIAL IV ONE (04:00)
--- NOTE | 2019-12-10 05:00 | NUR ---
EDITING INTERN PT CONFUSED, DISORIENTED, DOES NOT FOLLOW SIMPLE COMMANDS, O2 15 L VIA NRBM. LUNGS ARE CONGESTED.BILATERAL RHONCHI, LARGE AMT. OF THIN, BLOODY TINGED SECRETION. GENERALIZED PT WAS GIVEN ADDITIONAL LASIX 40 MG IVP PER MD ORDER. VSS, AFEBRILE. SCOPE-CONTROLLED A.FIB. NGT FEEDING AT 45 ML/HR. PT HAS RIGHT UPPER ARM MIDLINE, LAB. WORK DONE. F/C DRAINS SUFFICIENT AMT. OF URINE.
[2019-12-10 06:20] LABS: CALCIUM, SERUM 9.2 mg/dL (8.5-10.1); CARBON DIOXIDE 38 mmol/L (21-32); CHLORIDE 106 mmol/L (98-107); CREATININE 0.5 mg/dL (0.6-1.3); GLUCOSE 122 mg/dL (74-106); POTASSIUM 4.6 mmol/L (3.5-5.1); SODIUM SERUM 146 mmol/L (136-145); UREA NITROGEN, BLOOD 35 mg/dL (7-18)
[2019-12-10 06:27] LABS: BASOPHILS % (AUTO) 0.3 % (0.0-2.0); EOSINOPHILS % (AUTO) 0.2 % (0.0-6.0); HEMATOCRIT 28 % (39-51); HEMOGLOBIN 9.4 g/dL (13.5-17.5); LYMPHOCYTES # (AUTO) 1.3 /CMM (0.8-4.8); LYMPHOCYTES % (AUTO) 13.1 % (20.0-44.0); MEAN CORPUSCULAR HGB CONC 34 g/dl (31.0-36.0); MEAN CORPUSCULAR VOLUME 79 fL (80-96); MONOCYTES # (AUTO) 0.5 /CMM (0.1-1.30); MONOCYTES % (AUTO) 5.2 % (2.0-12.0); NEUTROPHILS # (AUTO) 8.3 /CMM (1.8-8.9); NEUTROPHILS % (AUTO) 81.2 % (43.0-81.0); PLATELET COUNT (AUTO) 194 /CMM (150-450); RED BLOOD CELL COUNT(AUTO) 3.56 MIL/uL (4.5-6.0); WHITE BLOOD COUNT (AUTO) 10.2 K/uL (4.3-11.0)
--- NOTE | 2019-12-10 08:00 | NUR ---
ICU OPENING RN NOTES RECEIVED PT IN BED. ALERT AND ORIENTED X1. CONFUSED AND NON-VERBAL. PT IS WITH 5 L SIMPLE MASK, SATURATION WAS 96%.PT HAS GENERALIZED EDEMA UPPER AND LOW EXTREMITIES . RIGHT UPPER MIDLINE INTACT AND FLUSHED WELL. LEFT UPPER ARM HEPLOCK FLUSHED WELL AND INTACT. NG TUBE PLACEMENT CHECK BY AUSCULTATION . ON TELEMONITOR AFIB HR 85. WELL SUCTIONED BLOODY TINGED SECRETION.RT AT BED SITE SUCTION DONE AND MODERATE AMOUNT OBTAINED. INFORMED DR MOLINA . DR VELAZCO ON BED SITE. AWARE THAT PT HAS CHEST CONGESTION. BED IN LOWEST POSITION. CALL LIGHT WITHIN REACH. SAFETY MEASURES ARE TAKEN. PT WILL BE MONITORED.
[2019-12-10] MEDS: ACETYLCYSTEINE 10% SOLN 400 MG/4 ML VIAL NEB SCH ×3 (08:31→23:41)
[2019-12-10] MEDS ORDERED: acetaZOLAMIDE SODIUM 500 MG/VIAL VIAL IV ONE (09:00)
--- NOTE | 2019-12-10 09:01 | NUR ---
POTATO CHIP MAKER NOTES RT AT THE BED SITE. PT PLACED ON 6 L ON NASAL CANNULA , SATURATION 96%. CONTINUE TO MONITOR. DR MOLINA NOTIFY THAT GT TUBE ON HOLD FOR NOW.
[2019-12-10] MEDS: PROSOURCE / PROSTAT (PYXIS) 30 ML UDC PO SCH ×2 (09:13→16:10)
[2019-12-10] MEDS: HYDROCORTISONE SOD SUCCINATE 100 MG/2 ML VIAL IV SCH ×2 (09:17→21:37)
--- NOTE | 2019-12-10 09:28 | NUR ---
HAND CANDY CUTTER NOTE REGLAN 10 MG IVP GIVEN ORDERED DU TO ABDOMINAL DISCOMFORT AND RESIDUAL WAS HIGH LAST NIGHT , STILL HOLD N GTUBE FEEDING STILL WITH CHEST CONGESTION NOTED DR PEDRO LUIS MILLARD
[2019-12-10] MEDS ORDERED: METOCLOPRAMIDE HCL 10 MG/2 ML VIAL IV PRN (09:30)
--- NOTE | 2019-12-10 11:00 | NUR ---
INTERNET MARKETING CONSULTANT NOTE NO RESIDUAL NOTED ,NO NAUSEA OR VOMITING NOTED AT THIS TIME, CHEST CONGESTIONS SUBSIDED ,N G TUBE FEEDING RESTARTED ORDERED, WILL MONITOR
--- NOTE | 2019-12-10 15:27 | NUR ---
SUPERINTENDENT POLICE NOTES CHECKED THE RESIDUAL .ROUNDS MAKE. CONTINUE TO MONITOR.
[2019-12-10] MEDS: RIVAROXABAN 10 MG TABLET PO SCH (16:10)
--- NOTE | 2019-12-10 18:28 | NUR ---
MECHANICAL SERVICE TECHNICIAN CLOSING NOTES PT IS RESTING IN BED COMFORTABLE .RESIDUAL CHECKED. PT IS ON NASAL CANNULA 6 L RT WAS SUCTIONED THIS MORNING.VS WNL.PT IS CONFUSED AND DISORIENTED. PT NEEDS HAVE BEEN MET. VITAL SIGNS ARE STABLE.NO ACUTE CHANGES OCCURRED. SAFETY MEASURES HAVE BEEN IMPLEMENTED.CALL LIGH WITHIN REACH. BED IS IN LOWEST POSITION AND LOCKED. SIDE RAILS ARE UP.PT HAS BEEN ENFORCED TO NIGHT SHIFTS RN FOR SUZAN.
[2019-12-10] MEDS: SENNOSIDES 8.6 MG TABLET PO SCH (21:36)
[2019-12-10] MEDS: LATANOPROST EYE DROP 0.005% 2.5 ML BOTTLE OP SCH (21:37)
[2019-12-11] VITALS (24 sets, daily range): BP systolic 105–153; BP diastolic 58–98
[2019-12-11] MEDS: ALBUTEROL HALF STRENGTH 1.25 MG/3 ML VIAL.NEB NEB SCH ×6 (03:04→23:31)
[2019-12-11] MEDS: IPRATROPIUM NEB FS 0.5 MG/2.5 ML AMPUL.NEB NEB SCH ×6 (03:04→23:31)
[2019-12-11 04:38] LABS: BASOPHILS # (AUTO) 0.1 /CMM (0.0-0.2); BASOPHILS % (AUTO) 0.6 % (0.0-2.0); EOSINOPHILS % (AUTO) 0.3 % (0.0-6.0); HEMATOCRIT 29 % (39-51); HEMOGLOBIN 9.5 g/dL (13.5-17.5); LYMPHOCYTES # (AUTO) 1.8 /CMM (0.8-4.8); LYMPHOCYTES % (AUTO) 17.4 % (20.0-44.0); MEAN CORPUSCULAR HGB CONC 33 g/dl (31.0-36.0); MEAN CORPUSCULAR VOLUME 79 fL (80-96); MONOCYTES # (AUTO) 0.5 /CMM (0.1-1.30); MONOCYTES % (AUTO) 5.1 % (2.0-12.0); NEUTROPHILS # (AUTO) 7.8 /CMM (1.8-8.9); NEUTROPHILS % (AUTO) 76.6 % (43.0-81.0); PLATELET COUNT (AUTO) 167 /CMM (150-450); RED BLOOD CELL COUNT(AUTO) 3.62 MIL/uL (4.5-6.0); WHITE BLOOD COUNT (AUTO) 10.1 K/uL (4.3-11.0)
[2019-12-11 04:46] LABS: CALCIUM, SERUM 9.3 mg/dL (8.5-10.1); CREATININE 0.7 mg/dL (0.6-1.3); POTASSIUM 3.2 mmol/L (3.5-5.1)
--- NOTE | 2019-12-11 07:15 | NUR ---
ROVING TECHNICIAN NOTES RECEIVED PATIENT AOX1 LETHARGIC , ABLE TO FOLLOW COMMANDS , , NOT IN ACUTE DISTRESS , RESPIRATION EVEN AND UNLABORED SPO2 OF 100% VIA 6LPM NC , AFIB 89 WITH PVC'S ON BEDSIDE MONITOR , RIGHT NGT PATENT AND INTACT IN PLACE WITH GLUCERNA @45ML/HR TOLERATING WELL WITH NO RESIDUALS NOTED, FC DRAINING VIA GRAVITY WITH PINK TINGED OUTPUT , MARLENE MIDLINE WITH NS @ TKO , ALL NEEDS ATTENDED , WILL CONTINUE TO MONITOR
[2019-12-11] MEDS: ACETYLCYSTEINE 10% SOLN 400 MG/4 ML VIAL NEB SCH ×4 (07:35→23:31)
[2019-12-11] MEDS: HYDROCORTISONE SOD SUCCINATE 100 MG/2 ML VIAL IV SCH ×2 (08:10→21:16)
[2019-12-11] MEDS: GLUCERNA 1.2 1,000 ML BOTTLE NG PRN (08:11)
[2019-12-11] MEDS: PROSOURCE / PROSTAT (PYXIS) 30 ML UDC PO SCH ×2 (08:11→16:06)
[2019-12-11] MEDS: POTASSIUM CHLORIDE 20 MEQ POWDER PACKET GT SCH ×3 (08:57→10:55)
[2019-12-11] MEDS ORDERED: POTASSIUM CHLORIDE 20 MEQ TAB.PRT.SR PO SCH (09:00)
[2019-12-11 09:42] LABS: ABG BASE EXCESS 11.8 mmol/L; ABG PCO2 47.3 mmHg (35.0-45.0); ABG PH 7.503 (7.350-7.450); AaDO2 123.3 mmHg; COHb 1.1 % (0.5-1.5); MetHb 0.3 % (0.0-1.5); O2Hb 90.7 % (94.0-97.0); SITE, ABG Right Radial; VENT MODE, BG 4L N/C
--- NOTE | 2019-12-11 09:50 | NUR ---
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
--- NOTE | 2019-12-11 09:52 | NUR ---
COMMUNITY SUPPORT SPECIALIST NOTES ABG RELAYED BY RT , O2 TITARTED FROM 4LPM TO 6LPM , SPO2 OF 100% WITH NO SIGNS OF DISTRESS , RT RANJIT DEEP SUCTIONED THE PT . THICK LARGE AMOUNT OF SECRETIONS
--- NOTE | 2019-12-11 15:00 | NUR ---
MAT LINKER NOTES SEEN AND EVALUATED BY SPEECH THERAPIST , WILL RE EVALUATE TOMORROW PT HAS EPISODE OF DISTRESS SPO2 OF 82-85% VIA 6LPM NC AFTER SWALLOWING , WILL CONTINUE TO MONITOR
[2019-12-11] MEDS: RIVAROXABAN 10 MG TABLET PO SCH (16:06)
--- NOTE | 2019-12-11 16:06 | NUR ---
CORRECTIONS OFFICER NOTES HORTENCIA HELD , NOTED WITH PINK TINGED / TEA COLORED URINE OUTPUT .
[2019-12-11] MEDS: SENNOSIDES 8.6 MG TABLET PO SCH (21:16)
[2019-12-11] MEDS: LATANOPROST EYE DROP 0.005% 2.5 ML BOTTLE OP SCH (21:16)
[2019-12-12] VITALS (25 sets, daily range): BP systolic 120–158; BP diastolic 70–99
[2019-12-12] MEDS: ALBUTEROL HALF STRENGTH 1.25 MG/3 ML VIAL.NEB NEB SCH ×6 (03:23→22:56)
[2019-12-12] MEDS: IPRATROPIUM NEB FS 0.5 MG/2.5 ML AMPUL.NEB NEB SCH ×6 (03:23→22:56)
[2019-12-12 05:01] LABS: BASOPHILS % (AUTO) 0.2 % (0.0-2.0); EOSINOPHILS % (AUTO) 0.2 % (0.0-6.0); HEMATOCRIT 29 % (39-51); HEMOGLOBIN 9.3 g/dL (13.5-17.5); LYMPHOCYTES # (AUTO) 1.4 /CMM (0.8-4.8); LYMPHOCYTES % (AUTO) 17.3 % (20.0-44.0); MEAN CORPUSCULAR HGB CONC 32 g/dl (31.0-36.0); MEAN CORPUSCULAR VOLUME 80 fL (80-96); MONOCYTES # (AUTO) 0.4 /CMM (0.1-1.30); MONOCYTES % (AUTO) 4.4 % (2.0-12.0); NEUTROPHILS # (AUTO) 6.4 /CMM (1.8-8.9); NEUTROPHILS % (AUTO) 77.9 % (43.0-81.0); PLATELET COUNT (AUTO) 146 /CMM (150-450); RED BLOOD CELL COUNT(AUTO) 3.59 MIL/uL (4.5-6.0); WHITE BLOOD COUNT (AUTO) 8.2 K/uL (4.3-11.0)
[2019-12-12 05:05] LABS: CALCIUM, SERUM 9.2 mg/dL (8.5-10.1); CREATININE 0.6 mg/dL (0.6-1.3); POTASSIUM 3.7 mmol/L (3.5-5.1)
--- NOTE | 2019-12-12 08:08 | NUR ---
WOUND CARE CONSULT: PT SEEN FOR PENIS WOUND AND SCROTAL WOUND. PT NOTED TO HAVE PROFOUND GENERALIZED EDEMA. SACRAL SCAR AND LOWER LEG SCARRING NOTED, PRESENT ON ADMISSION. RECOMMEND SURGICAL CONSULT. DR WRIGHT NOTIFIED OF CONSULT REQUEST. PT ON FIRST STEP CIRRUS LOW AIRLOSS MATTRESS. ALL SKIN PROTECTION MEASURES IN PLACE AND DISCUSSED WITH NURSING STAFF. MD IN AGREEMENT WITH PLAN OF CARE. WILL SEE PRN.
[2019-12-12] MEDS: PROSOURCE / PROSTAT (PYXIS) 30 ML UDC PO SCH ×2 (08:11→16:02)
[2019-12-12] MEDS: HYDROCORTISONE SOD SUCCINATE 100 MG/2 ML VIAL IV SCH ×2 (08:11→21:56)
--- NOTE | 2019-12-12 08:36 | NUR ---
Social Service consult requested by to inquire if pt has family, since wrong number on face sheet. TALENT ACQUISITION PROJECT MANAGER contacted Lavell at [facility], and was informed that pt has no family and will require bioethics.
[2019-12-12] MEDS: ACETYLCYSTEINE 10% SOLN 400 MG/4 ML VIAL NEB SCH ×3 (08:58→22:56)
--- NOTE | 2019-12-12 09:25 | NUR ---
RN NOTE 0715: Received patient awake, able to follow simple commands. Still noted with crackles. On 6LPM of O2 via NC. Kept HOB elevated. Right nare NGT intact, TF tolerated, no residuals. With Willett cath intact, ntoed with gerson colored urine drained to BSD. With MARLENE midline intact. 0800: S/E by wound nurse re: penile and scrotal lesions. Per [facility], she will consult specialist. 0910: S/E by Dr. Monroy, trying to contact family but FC has wrong number for contacts, SW consulted. Per Dr. Monroy, will need GI consult for GT insertion needs. Will disregard swallow eval per Dr. Monroy for risk of aspiration. Awaitng primary MD rounds.
[2019-12-12] MEDS: GLUCERNA 1.2 1,000 ML BOTTLE NG PRN (15:03)
[2019-12-12] MEDS: RIVAROXABAN 10 MG TABLET PO SCH (16:38)
--- NOTE | 2019-12-12 19:15 | NUR ---
ICU/OPENING RECEIVED PATIENT IN BED WITH NO SIGN OF ANY DISTRESS. PATIENT IS ON 6L OF 02 WITH NASAL CANNULA SATURATING AT 97% WITH NO SIGN OF ANY SOB. RT NG TUBE FEEDING ON WITH GLUCERNA RUNNING AT 45ML/HR WITH NO RESIDUAL. PATIENT IS ABLE TO RESPOND TO QUESTIONS FIR YES OR NO. PATIENT IS AFIB WITH HR AT 101 AT BEDSIDE MONITOR. FC INTACT WITH JASON COLO URINE NOTED. ALL SAFETY PRECAUTIONS APPLIED. PATIENT REPOSITIONED. WILL CONTINUE TO MONITOR PATIENT THROUGHOUT SHIFT.
[2019-12-12] MEDS: SENNOSIDES 8.6 MG TABLET PO SCH (21:55)
[2019-12-12] MEDS: LATANOPROST EYE DROP 0.005% 2.5 ML BOTTLE OP SCH (21:56)
[2019-12-13] VITALS (26 sets, daily range): BP systolic 79–146; BP diastolic 39–103
[2019-12-13] MEDS: IPRATROPIUM NEB FS 0.5 MG/2.5 ML AMPUL.NEB NEB SCH ×5 (03:31→20:16)
[2019-12-13] MEDS: ALBUTEROL HALF STRENGTH 1.25 MG/3 ML VIAL.NEB NEB SCH ×5 (03:31→20:16)
[2019-12-13 04:50] LABS: BASOPHILS % (AUTO) 0.5 % (0.0-2.0); EOSINOPHILS % (AUTO) 0.1 % (0.0-6.0); HEMATOCRIT 30 % (39-51); HEMOGLOBIN 9.5 g/dL (13.5-17.5); LYMPHOCYTES # (AUTO) 1.2 /CMM (0.8-4.8); LYMPHOCYTES % (AUTO) 15.1 % (20.0-44.0); MEAN CORPUSCULAR HGB CONC 32 g/dl (31.0-36.0); MEAN CORPUSCULAR VOLUME 80 fL (80-96); MONOCYTES # (AUTO) 0.3 /CMM (0.1-1.30); MONOCYTES % (AUTO) 3.2 % (2.0-12.0); NEUTROPHILS # (AUTO) 6.6 /CMM (1.8-8.9); NEUTROPHILS % (AUTO) 81.1 % (43.0-81.0); PLATELET COUNT (AUTO) 146 /CMM (150-450); RED BLOOD CELL COUNT(AUTO) 3.69 MIL/uL (4.5-6.0); WHITE BLOOD COUNT (AUTO) 8.1 K/uL (4.3-11.0)
[2019-12-13 05:00] LABS: CARBON DIOXIDE 37 mmol/L (21-32); CHLORIDE 107 mmol/L (98-107); CREATININE 0.5 mg/dL (0.6-1.3); GLUCOSE 150 mg/dL (74-106); MAGNESIUM 2.1 mg/dL (1.8-2.4); PHOSPHORUS 2.5 mg/dL (2.5-4.9); SODIUM SERUM 148 mmol/L (136-145); UREA NITROGEN, BLOOD 40 mg/dL (7-18)
[2019-12-13 05:05] LABS: CALCIUM, SERUM 9.4 mg/dL (8.5-10.1)
--- NOTE | 2019-12-13 07:15 | NUR ---
ICU/RN PATIENT INTUBATES SATURATING WELL AT 99% WITH NO SIGNS OF ANY SOB OR ANY DISTRESS. FEVER HAS DECREASED FROM 102.0 TO NOW 100.2. FEEDING CONTINUES WITH NO RESIDUAL. ALL SAFETY PRECAUTIONS APPLIED ENDORSED PATIENT TO MORNING SHIFT NURSE FOR SUZAN.
--- NOTE | 2019-12-13 07:30 | NUR ---
RN OPENING NOTE RECEIVED PATIENT RESTING IN BED. NO ACUTE DISTRESS NOTED. PATIENT IS ON 6L O2 VIA NC, TOLERATING WELL, NO SIGNS OF RESPIRATORY DISTRESS NOTED. PATIENT VITAL SIGNS ARE STABLE. NGT IN R NARE INTACT, CHECKED PLACEMENT VIA AUSCULTATION, TOLERATING WELL MINIMAL RESIDUAL NOTED. FEEDING RUNNING ORDERED. MATA CATHETER IS INTACT, DRAINING URINE. PATIENT SAFETY IS BEING MAINTAINED, CALL LIGHT WITHIN REACH, WILL CONTINUE TO MONITOR CLOSELY.
[2019-12-13] MEDS: ACETYLCYSTEINE 10% SOLN 400 MG/4 ML VIAL NEB SCH ×2 (08:02→14:56)
[2019-12-13] MEDS: HYDROCORTISONE SOD SUCCINATE 100 MG/2 ML VIAL IV SCH ×2 (09:00→21:03)
[2019-12-13] MEDS: PROSOURCE / PROSTAT (PYXIS) 30 ML UDC PO SCH ×2 (09:01→17:26)
--- NOTE | 2019-12-13 10:19 | NUR ---
RN NOTE LEFT A MESSAGE TO DR DE OLIVEIRA THAT THE PATIENT NEEDS A GI CONSULT. PER DR VELAZCO, PATIENT NEEDS TO BE SCHEDULED FOR A PEG TUBE PLACEMENT. PATIENT SAFETY MAINTAINED, CALL LIGHT WITHIN REACH, WILL CONTINUE TO MONITOR.
--- NOTE | 2019-12-13 11:53 | NUR ---
RN NOTE CALLED THE NUMBER ON PATIENTS FACE SHEET TO SEE IF PATIENT HAS FAMILY. 4 SEASON WAS REACHED, PER THE ADMISSION OFFICE, PATIENT HAS NO FAMILY AND BIO ETHICS IS ON THE CASE. RELAYED THE INFORMATION TO THE ATTENDING PHYSICIAN KASI ROBERTS.
[2019-12-13] MEDS: GLUCERNA 1.2 1,000 ML BOTTLE NG PRN (13:52)
[2019-12-13] MEDS: RIVAROXABAN 10 MG TABLET PO SCH (17:27)
--- NOTE | 2019-12-13 19:16 | NUR ---
RN CLOSING NOTES NO ACUTE CHANGED TO PATIENT CONDITION DURING MY SHIFT. PATIENT REMAINED ON 6L O2 VIA NC, TOLERATING WELL, SATURATING WELL, NO RESPIRATORY DISTRESS NOTED. FREQUENT DEEP SUCTIONING WAS PROVIDED BY THE RT. VITAL SIGNS REMAINED STABLE THROUGH OUT THE SHIFT. REPLACED PATIENT NGT DUE TO THE OLD ONE BEING CLOGGED. CHECKED PLACEMENT VIA AUSCULTATION AND ASPIRATION OF GASTRIC CONTENT. CHARGE NURSE ASSISTED WITH PLACEMENT. ALL PATIENT NEEDS WERE MET, SAFETY WAS MAINTAINED, CALL LIGHT WITHIN REACH, ENDORSED TO FANTASMA SOLOMON FOR CONTINUITY OF CARE.
--- NOTE | 2019-12-13 19:30 | NUR ---
RANGE TECHNICIAN OPENING NOTES: Received pt in bed A&Ox1. On 6L NC. No SOB or respiratory distress noted. Right NGT in place with Glucerna running at 45ml/hr. Tolerating well. Minimal residual noted. MARLENE midline patent and flushed. Dressing c/d/i. FC in place draining via gravity. Safety measures in place. Will continue to monitor.
[2019-12-13] MEDS: SENNOSIDES 8.6 MG TABLET PO SCH (21:03)
[2019-12-13] MEDS: LATANOPROST EYE DROP 0.005% 2.5 ML BOTTLE OP SCH (21:07)
[2019-12-14] VITALS (7 sets, daily range): BP systolic 74–124; BP diastolic 37–82
[2019-12-14] MEDS: ALBUTEROL HALF STRENGTH 1.25 MG/3 ML VIAL.NEB NEB SCH ×2 (00:14→02:52)
[2019-12-14] MEDS: ACETYLCYSTEINE 10% SOLN 400 MG/4 ML VIAL NEB SCH (00:14)
[2019-12-14] MEDS: IPRATROPIUM NEB FS 0.5 MG/2.5 ML AMPUL.NEB NEB SCH ×2 (00:14→02:52)
--- NOTE | 2019-12-14 00:18 | NUR ---
PT has severe nose bleed, inserted nasal trumpet for easy nasotracheal suctioning, pt desaturated and was placed on NRB mask 100%, charge Nurse was informed about pt condition and COPD diagnosis.
--- NOTE | 2019-12-14 03:21 | NUR ---
BUILDING MATERIALS SALES ATTENDANT NOTE: 0312: Pt noted with large amounts of blood from nose and mouth. Suctioned pt, O2 sat dropping to 85%. Charge nurse aware. RT paged. Dr. Perdomo paged. 0836: Spoke w/ Dr. Perdomo who stated to continue deep suctioning for pt to maintain O2 WNL. Made Dr. Perdomo aware that this morning's lab draws were sent as stat. Will continue to monitor.
[2019-12-14 03:22] LABS: EOSINOPHILS % (AUTO) 0.1 % (0.0-6.0); HEMATOCRIT 25 % (39-51); HEMOGLOBIN 8.1 g/dL (13.5-17.5); LYMPHOCYTES # (AUTO) 0.5 /CMM (0.8-4.8); LYMPHOCYTES % (AUTO) 3.4 % (20.0-44.0); MEAN CORPUSCULAR HGB CONC 33 g/dl (31.0-36.0); MEAN CORPUSCULAR VOLUME 79 fL (80-96); MONOCYTES # (AUTO) 0.8 /CMM (0.1-1.30); MONOCYTES % (AUTO) 4.9 % (2.0-12.0); NEUTROPHILS # (AUTO) 14.7 /CMM (1.8-8.9); NEUTROPHILS % (AUTO) 91.6 % (43.0-81.0); PLATELET COUNT (AUTO) 141 /CMM (150-450); RED BLOOD CELL COUNT(AUTO) 3.09 MIL/uL (4.5-6.0)
[2019-12-14 03:34] LABS: ALBUMIN 2.8 g/dL (3.4-5.0); BILIRUBIN,TOTAL 0.7 mg/dL (0.2-1.0); CALCIUM, SERUM 8.9 mg/dL (8.5-10.1); CREATININE 0.6 mg/dL (0.6-1.3); MAGNESIUM 2.1 mg/dL (1.8-2.4); PHOSPHORUS 2.3 mg/dL (2.5-4.9); POTASSIUM 3.9 mmol/L (3.5-5.1); TOTAL PROTEIN, SERUM 6.3 g/dL (6.4-8.2)
[2019-12-14 04:03] LABS: ABG BASE EXCESS 8.5 mmol/L; ABG OXYGEN SATURATION 15.4 % (92.0-98.5); ABG PCO2 79.4 mmHg (35.0-45.0); ABG PH 7.282 (7.350-7.450); ABG PO2 16.1 mmHg (75.0-100.0); AaDO2 617.5 mmHg; COHb 0.2 % (0.5-1.5); O2Hb 14.9 % (94.0-97.0); SITE, ABG Right Radial
[2019-12-14] MEDS ORDERED: SUCCINYLCHOLINE CHLORIDE 20 MG/ML VIAL IV ONE (04:13)
--- NOTE | 2019-12-14 04:34 | NUR ---
ECHOCARDIOLOGIST NOTE: 0359: Pt noted w/ BP 80/60, HR in 30s and SpO2 78%. RT and charge nurse at bedside. Started NS 250mL bolus and stat ABG done. 0400: Paged Dr. Perdomo for ABG results. Waiting yardage control operator forming back. 0404: Code blue called. ACLS protocols initiated. ER at bedside, report given. See code blue record sheet. 0414: Time of called. Dr. Perdomo aware, asked to let Dr. Melendez know in AM of pt's passing. 0425: Spoke w/ Adi from [facility] and received case #[id number]. [facility] dismissed body. Pt has no family.
[2019-12-14] MEDS ORDERED: EPINEPHRINE (1:10,000) SYRINGE 1 MG/10 ML DISP.SYRIN IVP ONE (09:54)
== END 2019-12-14 04:14 | disposition expired | DRG 870 ==
LOC: ER 16:38 → ICUOV 21:08 → ICU 11-28 08:36
PROVIDERS: ADMIT Internal Medicine; ATTEND Hospitalist
PROC: 5A1955Z Respiratory Ventilation, Greater than 96 Consecutive Hours (ICD-10-PCS; principal; 2019-11-28)
PROC: 0BH17EZ Insertion of Endotracheal Airway into Trachea, Via Natural or Artificial Opening (ICD-10-PCS; principal; 2019-11-28)
PROC: 05H533Z Insertion of Infusion Device into Right Subclavian Vein, Percutaneous Approach (ICD-10-PCS; 2019-11-28)
PROC: 5A12012 Performance of Cardiac Output, Single, Manual (ICD-10-PCS; 2019-12-14)
DX: A41.9 Sepsis, unspecified organism (principal); J96.21 Acute and chronic respiratory failure with hypoxia; N17.0 Acute kidney failure with tubular necrosis; J18.9 Pneumonia, unspecified organism; G93.41 Metabolic encephalopathy; J96.22 Acute and chronic respiratory failure with hypercapnia; R65.21 Severe sepsis with septic shock; E44.0 Moderate protein-calorie malnutrition; J44.0 Chronic obstructive pulmonary disease with (acute) lower respiratory infection; I48.20 Chronic atrial fibrillation, unspecified; J44.1 Chronic obstructive pulmonary disease with (acute) exacerbation; N39.0 Urinary tract infection, site not specified; E27.40 Unspecified adrenocortical insufficiency; E86.0 Dehydration; D69.6 Thrombocytopenia, unspecified; D50.9 Iron deficiency anemia, unspecified; E11.9 Type 2 diabetes mellitus without complications; E87.6 Hypokalemia; E86.1 Hypovolemia; Z87.891 Personal history of nicotine dependence; Z79.82 Long term (current) use of aspirin; E88.09 Other disorders of plasma-protein metabolism, not elsewhere classified; B96.5 Pseudomonas (aeruginosa) (mallei) (pseudomallei) as the cause of diseases classified elsewhere; E66.01 Morbid (severe) obesity due to excess calories; Z68.27 Body mass index [BMI] 27.0-27.9, adult; E83.42 Hypomagnesemia; Z79.01 Long term (current) use of anticoagulants; I95.9 Hypotension, unspecified; F20.9 Schizophrenia, unspecified; S31.30XA Unspecified open wound of scrotum and testes, initial encounter; S31.20XA Unspecified open wound of penis, initial encounter; X58.XXXA Exposure to other specified factors, initial encounter; Y93.9 Activity, unspecified; Y92.129 Unspecified place in nursing home as the place of occurrence of the external cause; S61.412A Laceration without foreign body of left hand, initial encounter; R31.9 Hematuria, unspecified; F03.90 Unspecified dementia, unspecified severity, without behavioral disturbance, psychotic disturbance, mood disturbance, and anxiety; I50.9 Heart failure, unspecified; I11.0 Hypertensive heart disease with heart failure; Z20.828 Contact with and (suspected) exposure to other viral communicable diseases
CPT/HCPCS: 31720; 36410; 36415; 36600; 71045-TC; 80048-TC; 80053-TC; 80076-TC; 80164-TC; 80202-TC; 81000-TC; 82533; 82550-TC; 82728-TC; 82803-TC; 82962-TC; 83605-TC; 83615-TC; 83735-TC; 84100-TC; 84484-TC; 85025-TC; 85378-TC; 85730-TC; 86140-TC; 87040-TC; 87070-TC; 87081-TC; 87086-TC; 87186-TC; 92611-TC; 94003-TC; 94760-TC; 94762-TC; 94799-TC; A4217; A4349; A4624; A7526; G0378; G0500; J0171; J0330; J0692; J1120; J1720; J1940; J2185; J2704; J2765; J3370; J3475; J3490; J7030; J7040; J7050; J7060; U0003-CS